=== PATIENT | female | born 1970 | race Caucasian/White ===

== ENCOUNTER 2017-04-10 10:04 | Day surgery (SDC) | payer OTHER ==
[2017-04-03 11:38] VITALS: Ht 165.1 cm; Wt 117.6 kg
--- NOTE | 2017-04-03 12:09 | PAT Medication Instructions ---
Service Date Apr 03, 2017. Current Home Medication List Albuterol (Proair Hfa), 8.5 GM INH Q4HR PRN Azelastine HCl (Azelastine HCl), 2 SPRAYS JAGDEEP PN Fluticasone Prop/Salmeterol (Advair Diskus 100/50 60 Dose), 1 PUFF INH BID Fluticasone Propionate (Nasal) (Flonase Allergy Relief), 2 SPRAYS JAGDEEP HS Hyoscyamine Sulfate (Levsin), 0.125 MG PO Q6HR PRN Levothyroxine (Synthroid *), 0.1 MG PO QAM Lisinopril (Prinivil), 10 MG PO QAM Naproxen (Aleve), 440 MG PO PRN [Kenzie], 1 TAB PO QAM [Ativan], 1 TAB PO TID PRN for RN [Omeprazole], 1 TAB PO BID [Ranitidine], 1 TAB PO HS PRN for RN [Singulair], 1 TAB PO HS [Wellbutrin], 1 TAB PO BID Medication Instructions For Your Scheduled Surgery - Check with surgeon for instructions: Naproxen (Aleve), 440 MG PO PRN - Hold the following medications the morning of surgery: [Ranitidine], 1 TAB PO HS PRN for RN [Kenzie], 1 TAB PO QAM Lisinopril (Prinivil), 10 MG PO QAM Hyoscyamine Sulfate (Levsin), 0.125 MG PO Q6HR PRN - Take the following medications the morning of surgery with a sip of water: [Wellbutrin], 1 TAB PO BID [Omeprazole], 1 TAB PO BID [Ativan], 1 TAB PO TID PRN for RN (if needed) Levothyroxine (Synthroid *), 0.1 MG PO QAM Fluticasone Prop/Salmeterol (Advair Diskus 100/50 60 Dose), 1 PUFF INH BID Azelastine HCl (Azelastine HCl), 2 SPRAYS JAGDEEP PN (if needed) Albuterol (Proair Hfa), 8.5 GM INH Q4HR PRN (bring with you to hospital morning of surgery; use if needed) - Take the following medications as scheduled the night before surgery: [Wellbutrin], 1 TAB PO BID [Singulair], 1 TAB PO HS [Ranitidine], 1 TAB PO HS PRN for RN (if needed) [Omeprazole], 1 TAB PO BID [Ativan], 1 TAB PO TID PRN for RN (if needed) Hyoscyamine Sulfate (Levsin), 0.125 MG PO Q6HR PRN (if needed) Fluticasone Propionate (Nasal) (Flonase Allergy Relief), 2 SPRAYS JAGDEEP HS Fluticasone Prop/Salmeterol (Advair Diskus 100/50 60 Dose), 1 PUFF INH BID Azelastine HCl (Azelastine HCl), 2 SPRAYS JAGDEEP PN (if needed) Albuterol (Proair Hfa), 8.5 GM INH Q4HR PRN (if needed) If you have any questions please call us at [phone] or [phone] or [phone]
--- NOTE | 2017-04-03 12:42 | DIAGNOSTIC IMAGING REPORT ---
CHEST 2 VIEWS ROUTINE CLINICAL HISTORY: PAT preoperative evaluation COMPARISON STUDY: No previous studies for comparison. FINDINGS: The bones soft tissues and hemidiaphragms are normal. The cardiomediastinal silhouette is normal. The lungs are clear. The pulmonary vasculature is normal. IMPRESSION: Negative chest. Electronically signed by: Wyatt Mcmillan M.D. 04/03/2017 12:41 PM Dictated Date/Time: 04/03/2017 12:40 PM
[2017-04-03 13:28] LABS: BASO % 0.2 %; BASO ABS # 0.01 K/uL (0-0.2); COMPLETE YES; EOS % 1.3 %; HEMATOCRIT 40.2 % (37-47); IG% 0.2 %; LYMPH % 30.6 %; LYMPH ABS # 1.83 K/uL (1.2-3.4); MEAN CELL VOLUME 85.2 fL (80-100); MEAN CORPUSCULAR HGB CONC 32.8 g/dl (32-36); MEAN PLATELET VOLUME 9.2 fL (7.4-10.4); MONO % 8.4 %; NEUT % 59.3 %; PLATELET COUNT 278 K/uL (130-400); RED BLOOD COUNT 4.72 M/uL (4.2-5.4); URINE APPEARANCE CLEAR (CLEAR); URINE BILIRUBIN NEG (NEG); URINE COLOR YELLOW; URINE NITRITE NEG (NEG); URINE PH 6.5 (4.5-7.5); URINE SPECIFIC GRAVITY 1.023 (1.000-1.030); UROBILINOGEN NEG (NEG); WHITE BLOOD COUNT 5.98 K/uL (4.8-10.8)
[2017-04-03 13:32] LABS: BUN/CREATININE RATIO 13.7 (10-20); CREATININE 0.87 mg/dl (0.60-1.20); MANUAL MICROSCOPIC REQUIRED? NO; POTASSIUM 4.3 mmol/L (3.5-5.1); REVIEW REQ? NO
[2017-04-03 13:36] LABS: PROTHROMBIN TIME (PATIENT) 10.4 SECONDS (9.0-12.0)
--- NOTE | 2017-04-09 17:13 | HISTORY & PHYSICAL EXAMINATION ---
DATE OF ADMISSION: 04/11/2017 `. CHIEF COMPLAINT: Back and right leg pain. HISTORY OF PRESENT ILLNESS: The patient a 46-year-old female who underwent a prior right L5-S1 microdiskectomy and did well. She reports a few months to shoot up recurrent symptoms of pain radiates down the right leg. She is currently not working but the pain is frequent, intermittent, exacerbated by activity and limiting her function. She has failed to improve with conservative treatment including physical therapy and epidural injections and desires surgical intervention. She denies alphonso numbness or weakness. She has an MRI that shows a right L4-L5 disk herniation with extruded fragment causing lateral recess narrowing. Prior laminectomy on the right at L5-S1 with loss of disk height at L4-L5 and L5-S1. There is no neural compression to L5-S1. PAST MEDICAL HISTORY: Reflux, arthritis, asthma, chronic migraines, high cholesterol, hypertension, hypothyroidism, obesity. PAST SURGICAL HISTORY: Microdiskectomy and bilateral tubal ligation. MEDICATIONS: Synthroid, lisinopril, Prilosec, Kenzie, Lortab, Advair, Wellbutrin, Flonase. ALLERGIES: None. FAMILY HISTORY: Denies history of stroke. There is a family history of arthritis, coronary artery disease and diabetes. SOCIAL HISTORY: The patient is , currently not working, has 1 son. She does not smoke and drinks an occasional glass of wine. REVIEW OF SYSTEMS: Negative for fever, hearing loss, vision changes, shortness of breath, chest pain, leg swelling, nausea, vomiting, urinary incontinence. PHYSICAL EXAMINATION: GENERAL: The patient stands 5 feet 5 inches tall, weighs 250 pounds. She stands and ambulates with a deliberate gait. She has normal last affect and answers questions appropriately. NECK: She has full cervical range of motion with normal-appearing neck. No lymphadenopathy and good range of motion. HEART: She has a regular rate and rhythm on auscultation of the heart. LUNGS: Clear to auscultation bilaterally. ABDOMEN: She has modest centripetal obesity. EXTREMITIES: Lower extremity evaluation reveals nontender hip range of motion with a positive straight leg raise on the right, negative on the left. Strength testing demonstrates normal strength in all motor groups in the lower extremities bilaterally. She has intact sensation to light touch in all distributions except for some subjective decreased sensation to light touch in the posterior thigh on the right. She has symmetrically diminished DTRs of patellar and no clonus in the ankles. She has palpable distal pulses. BACK: Lumbar scar was noted. ASSESSMENT AND PLAN: She has right L4-L5 herniated nucleus pulposus, failed to respond to conservative treatment and the patient desires surgical intervention. I think it is reasonable to proceed with a right L4-5 microdiskectomy. Risk of ongoing back pain was reviewed. MTDD
[~2017-04-10] VITALS: Ht 165.1 cm; Wt 117.6 kg
[~2017-04-10 10:04] MED LIST: ADVIN10/60 INH; ALBU1AER9 INH; ALLEGRA PO; ATIVAN PO; AZEL0.056 NAE; FLUT0.15 NAE; HYOS1TAB PO; LISI10TA PO; NAPR1TAB9 PO; OMEPRAZOLE PO; RANITIDINE PO; SINGULAIR PO; SYN100 PO; WELLBUTRIN PO
[2017-04-10] MEDS ORDERED: FENTANYL CITRATE INJ 50 MCG/1 ML 2 ML VIAL ONE ×2 (10:38→12:46)
[2017-04-10] MEDS ORDERED: MIDAZOLAM HCL 1 MG/ML 2ML VIAL ONE (10:38)
[2017-04-10] MEDS ORDERED: HYDROmorphone INJ 2 MG/ML SYR/VIAL ONE (10:39)
[2017-04-10] MEDS ORDERED: ZNTT/150 PO (10:57)
[2017-04-10] MEDS ORDERED: MONT1TAB3 PO (10:57)
[2017-04-10] MEDS ORDERED: LEVO112T4 PO (10:57)
[2017-04-10] MEDS ORDERED: PRLSR20 PO (10:57)
[2017-04-10] MEDS ORDERED: LORA-741 PO (10:57)
[2017-04-10] MEDS ORDERED: BUPR100T8 PO (10:57)
[2017-04-10] MEDS ORDERED: FEXO1TAB49 PO (10:57)
[2017-04-10 11:01] VITALS: BP_SYST 140; BP_SYST 180; BP_DIAS 82; BP_DIAS 96; PULSE 97; TEMP 36; O2SAT 96
[2017-04-10] MEDS ORDERED: CEFAZOLIN IV 2,000 MG/60 ML D5W IV ONE (11:23)
[2017-04-10] MEDS ORDERED: EpHEDrine SULFATE INJ 50 MG/ML AMP IV PRN (11:45)
[2017-04-10] MEDS ORDERED: ONDANSETRON INJ 2 MG/ML 2 ML VIAL IV PRN ×2 (11:45→13:15)
[2017-04-10] MEDS ORDERED: ATROPINE SULFATE 0.1 MG/ML 5ML SYR IV PRN (11:45)
--- NOTE | 2017-04-10 11:48 | History & Physical Bridge Note ---
H&P Re-Evaluation Bridge Note: I have examined the patient, reviewed the History & Physical and in the interval since the performance of the History & Physical I have noted the following changes of clinical significance: No changes noted
[2017-04-10] MEDS ORDERED: BUPIVACAINE/EPINEPHRINE 0.5% MPF 1:200,000 30 ML VIAL ONE (12:07)
[2017-04-10] MEDS ORDERED: BACITRACIN 50000 UNIT VIAL ONE (12:07)
[2017-04-10] MEDS ORDERED: THROMBIN 5000 UNITS KIT ONE (12:07)
[2017-04-10] MEDS ORDERED: PROPOFOL IV EMULSION 10 MG/ML 20 ML VIAL IV ONE (12:51)
[2017-04-10] MEDS ORDERED: ONDANSETRON INJ 2 MG/ML 2 ML VIAL ONE (12:51)
[2017-04-10] MEDS ORDERED: DEXAMETHASONE SOD INJ 4 MG/ML VIAL ONE (12:51)
[2017-04-10] MEDS ORDERED: LIDOCAINE HCL 2% 2 ML VIAL (20MG/ML) ONE (12:51)
[2017-04-10] MEDS ORDERED: ROCURONIUM BROMIDE 10 MG/ML 5 ML VIAL ONE (12:51)
[2017-04-10] MEDS ORDERED: MoRPHine SULFATE 2 MG/ML CARP IV PRN (13:15)
[2017-04-10] MEDS ORDERED: OXYCODONE/ACETAMINOPHEN 5-325 TAB PO PRN ×2 (13:15)
[2017-04-10] MEDS ORDERED: SODIUM CHLORIDE 0.9% 1000ML 1,000 ML IV SCH (13:15)
--- NOTE | 2017-04-10 13:15 | [facility] Post Operative Brief Note ---
Immediate Operative Summary Operative Date Apr 10, 2017. Pre-Operative Diagnosis right L4-5 herniated nucleus pulposus Post-Operative Diagnosis right L4-5 herniated nucleus pulposus Procedure(s) Performed Right L4-L5 Microdiscectomy Surgeon Dr. Emigdio Brian Cook Specialty Surgeon(s) Gary Dimas PA-C Estimated Blood Loss 20ml Findings dict Specimens no specimens per surgeon Dr. Emigdio Brain
[2017-04-10] MEDS ORDERED: FLOSEAL HEMOSTATIC MATRIX 5ML TOP ONE (13:16)
[2017-04-10] MEDS ORDERED: OXYC-57 PO (13:16)
--- NOTE | 2017-04-10 13:18 | Discharge Instructions ---
Discharge Instructions Date of Service Apr 10, 2017. Admission Reason for Admission: Herniated Nucleus Pulposus Discharge Discharge Diagnosis / Problem: same Discharge Goals Goal(s): Decrease discomfort Activity Recommendations Activity Limitations: per Instructions/Follow-up section Lifting Limitations: no more than 10 pounds Exercise/Sports Limitations: gradually increase as tolerated May Resume Sexual Activity: when tolerated Shower/Bathe: may shower/bathe in 3 days . Instructions / Follow-Up Instructions / Follow-Up ACTIVITY RECOMMENDATIONS: SELF CARE INSTRUCTIONS AFTER A LAMINECTOMY 1. No prolonged sitting (less than 30 minutes for the first 3 weeks after surgery). 2. No bending, lifting more than 5 pounds, or twisting (roll like a log when turning in bed). 3. You may shower 3 days after surgery if no drainage from wound. Thoroughly dry wound. Do not soak in the tub. 4. Please walk as much as you can for exercise. Gradually increase the distance that you walk as your endurance increases. 5. You may drive in 7-10 days if you are comfortable and no longer requiring pain medications. SPECIAL CARE INSTRUCTIONS: VERY IMPORTANT TO READ AND REVIEW A. Your surgical incision has been closed with a cosmetic suture under the skin that will dissolve in about 6 weeks. In 14 days, you can use a pair of clean scissors and cut the suture that is left outside of the skin at the ends of your incision. B. Complications are uncommon, but please contact us if you have any signs or symptoms of: 1. wound infection (fever higher than 102.5 degrees F, redness, separation of wound, drainage, or increasing pain from the incision) 2. blood clots in legs (pain, swelling, redness and warmth in legs) 3. urinary tract infection (fever higher than 102.5 degrees, burning upon urination or increased frequency of urination) 4. nerve problems (inability to walk on your toes or heels, numbness, loss of bowel or bladder control) 5. any other symptoms that concern you. C. Please call the office at if you have any concerns or questions about your operation or recovery. MANAGING PAIN AFTER SPINAL SURGERY 1. Narcotic medication is intended for short-term use and will be provided for surgical pain. Surgical pain usually lasts for a period of 4-6 weeks. Narcotic medication includes Percocet, Vicodin, Darvocet, Tylenol #3 or Lortab. 2. Longer-term pain is more appropriately treated with non-narcotic medication such as Tylenol ES. 3. Muscle spasm is not appropriately treated with narcotics. Muscle relaxers such as Soma, Flexeril or Skelaxin can be used along with Tylenol ES. 4. Remember that we all live with some "aches and pains". This is not unusual or uncommon after an injury or as we get older. 5. We will provide appropriate medication within the normal guidelines of their prescribed use. We will also be very cautious and aware of potential abuse and extended duration of patients' medication needs. 6. Please allow 2-3 days to process refills. Prescriptions will not be mailed but must be picked up at the office. FOLLOW UP VISIT: Keep your scheduled follow-up appointment. Any questions, please call the office at . Current Hospital Diet Patient's current hospital diet: Discharge Diet Recommended Diet: Regular Diet Procedures Procedures Performed: Right L4-L5 Microdiscectomy Pending Studies Studies pending at discharge: no Medical Emergencies . Who to Call and When: Medical Emergencies: If at any time you feel your situation is an emergency, please call 911 immediately. . Non-Emergent Contact Non-Emergency issues call your: Surgeon . "Provider Documentation" section prepared by Emigdio Brian. . VTE Core Measure Inpt VTE Proph given/why not?: SCD's [place] Drug Monitoring Program Search Results: patient reviewed within database, no issues identified
[2017-04-10] MEDS: FENTANYL CITRATE INJ 50 MCG/1 ML 2 ML VIAL IV PRN ×4 (13:40→13:55)
--- NOTE | 2017-04-10 13:54 | DIAGNOSTIC IMAGING REPORT ---
INTRAOPERATIVE LUMBAR SPINE SINGLE VIEW CLINICAL HISTORY: Right L4-L5 microdiscectomy COMPARISON STUDY: No previous studies for comparison. FINDINGS: 8 seconds of fluoroscopic time was utilized. A single fluoroscopic spot images provided for interpretation. This reveals a metallic probe projected just posterior to the inferior L4 endplate. IMPRESSION: Intraoperative radiograph for localization purposes demonstrating a metallic probe at the L4-5 level. Electronically signed by: Augustin Patricia M.D. 04/10/2017 1:52 PM Dictated Date/Time: 04/10/2017 1:51 PM
--- NOTE | 2017-04-10 14:18 | OPERATIVE REPORT ---
DATE OF OPERATION: 04/10/2017 PREOPERATIVE DIAGNOSES: 1. Previous right L5-S1 microdiscectomy. 2. Right L4-L5 herniated nucleus pulposus. POSTOPERATIVE DIAGNOSES: Same. PROCEDURES: Right L4-L5 microdiscectomy. SURGEON: Dr. Brian. TOOL AND DIE ENGINEER: Gary Dimas PA-C. Please note he participated in all portions of the procedure and was critical for performance of the procedure. ANESTHESIA: General endotracheal anesthesia. COMPLICATIONS: None. ESTIMATED BLOOD LOSS: Minimal. DESCRIPTION OF PROCEDURE: After identification of patient and operative level, she was brought to the OR where she underwent induction of general anesthesia. She was then positioned prone on Corey OR table. All bony prominences were well padded. Care was taken to avoid pressure on the periorbital area. Lumbosacral area was sterilely prepped and draped in usual fashion. Antibiotics were administered. Time-out was performed. Level was confirmed and skin incision was localized with spinal needle. I infiltrated the skin with Marcaine and placed the incision over the spinous process of L4 and L5, exposed the right L4-L5 interlaminar window. After mobilization of fascia, identified the operative level with fluoroscopy and a marker and then marked this level. belt loop machine operator retractor was placed and a small laminotomy was created under the right edge of L4. I removed ligamentum flavum ____ traversing nerve root, protected with a nerve root retractor and then identified the extruded disc fragment in the superior disc space. I removed the capsule around the disc fragment, removed loose disc fragments and swept and explored the disc space, confirmed no further fragments were present. I then reconfirmed level, confirmed the nerve was decompressed and irrigated with bacitracin solution, applied FloSeal and closed in layered fashion. All sponge and needle counts were correct at the end of the case. I attest to the content of the Intraoperative Record and any orders documented therein. Any exception s are noted below.
[2017-04-10 14:20] VITALS: BP 160/77; PULSE 79; TEMP 36.9; O2SAT 96
[2017-04-10 14:50] VITALS: BP 162/77; PULSE 80; O2SAT 94
--- NOTE | 2017-04-10 15:08 | Anesthesiology Progress Note ---
Anesthesia Post Op Note Date & Time Apr 10, 2017 at 15:09 Vital Signs Vital Signs Past 12 Hours Date Time Temp Pulse Resp B/P (MAP) Pulse Ox O2 Delivery O2 Flow Rate FiO2 04/10/17 14:20 36.9 79 20 160/77 96 Nasal Cannula 2 04/10/17 14:05 79 14 163/94 94 Room Air 04/10/17 13:55 90 88 178/90 97 Mask 5 04/10/17 13:45 88 88 155/89 99 Mask 10 04/10/17 13:35 37.2 108 20 180/89 97 Mask 10 04/10/17 11:01 36 97 18 180/96 (124) 96 Room Air 140/82 (101) Notes Mental Status: alert / awake / arousable, participated in evaluation Pt Amnestic to Procedure: Yes Nausea / Vomiting: adequately controlled Pain: adequately controlled Airway Patency, RR, SpO2: stable & adequate BP & HR: stable & adequate Hydration State: stable & adequate Anesthetic Complications: no major complications apparent
[2017-04-10 15:20] VITALS: BP 158/79; PULSE 88; O2SAT 94
[2017-04-10 15:45] VITALS: BP 156/83; PULSE 78; TEMP 37.1; O2SAT 94
[2017-04-10 16:55] VITALS: BP 166/83; PULSE 80; TEMP 37.1; O2SAT 92
[2017-04-11] MEDS ORDERED: LACTATED RINGER'S 1000ML 1,000 ML IV SCH (06:00)
[2017-04-11] MEDS ORDERED: CEFAZOLIN 2000 MG/60 ML D5W IV SCH (06:00)
== END 2017-04-10 17:15 | disposition home or self-care (01) ==
LOC: C.ACU 10:04
PROVIDERS: ATTEND Orthopaedic Surgery Orthopaedic Surgery of the Spine
DX: M51.26 Other intervertebral disc displacement, lumbar region (principal); J45.909 Unspecified asthma, uncomplicated; I10 Essential (primary) hypertension; E78.00 Pure hypercholesterolemia, unspecified; E03.9 Hypothyroidism, unspecified; E66.9 Obesity, unspecified; Z98.890 Other specified postprocedural states; Z98.51 Tubal ligation status; Z79.899 Other long term (current) drug therapy; Z82.49 Family history of ischemic heart disease and other diseases of the circulatory system; Z83.3 Family history of diabetes mellitus

== ENCOUNTER 2024-06-09 02:44 | Inpatient (IN) ==
--- NOTE | 2024-06-09 03:01 | Emergency Department Note ---
History of Present Illness General Chief complaint: Fall Stated complaint: FALL-LAC TO FOREHEAD Time Seen by Provider: 06/09/24 02:50 History of Present Illness Maximum Pain Intensity: 3 This 53-year-old female that recently started Ozempic presents the ER for nausea diarrhea abdominal cramping he woke up to go the bathroom and passed out on the toilet and struck her head. Patient states the past few days she has had abdominal cramping and diarrhea. She did vomit. Tetanus is reported as current. Patient denies chest pain, dyspnea, fever, chills, flulike illness. No well water. No recent antibiotics. Home Medications Medication Instructions Recorded Confirmed Type Albuterol (Proair Hfa) 8.5 g inhalation Q4HR PRN ##0 12/11/10 History Hyoscyamine Sulfate (Levsin) 0.125 mg PO Q6HR PRN ##0 12/11/10 History Lisinopril (Prinivil) 10 mg PO QAM ##0 12/11/10 History Azelastine HCl 2 spry JAGDEEP PN ##0 04/03/17 History FLUTICASONE PROP/SALMETEROL 1 puff inhalation BID #0 Inhalers 04/03/17 History (Advair Diskus 100/50 60 Dose) Fluticasone Propionate (Nasal) 2 spry JAGDEEP HS ##0 04/03/17 History (Flonase Allergy Relief) Naproxen (Aleve) 440 mg PO PRN #0 tabs 04/03/17 History Bupropion (Wellbutrin Sr) 1 tab PO BID 30 days #60 tabs 04/10/17 History FEXOFENADINE HCL (LADY ALLERGY) 1 tab PO DAILY 30 days #30 tabs 04/10/17 History LEVOTHYROXINE SODIUM 1 tab PO DAILY 30 days #30 tabs 04/10/17 History LORAZEPAM (ATIVAN) 0.5 mg PO TID PRN Anxiety #0 tabs 04/10/17 History MONTELUKAST SODIUM (SINGULAIR) 1 tab PO HS 90 days #0 tabs 04/10/17 History OMEPRAZOLE (PRILOSEC) 20 mg PO BID #0 caps 04/10/17 History Ranitidine (Zantac) 150 mg PO HS #0 tabs 06/14/17 History Allergies Allergy/AdvReac Type Severity Reaction Status Date / Time sumatriptan Allergy Unknown HIVES Verified 04/10/17 10:44 nickel AdvReac Intermediate RASH Verified 04/10/17 10:44 tramadol AdvReac Mild "GETS MEAN" Verified 04/10/17 10:44 Aromatic Oils Allergy Unknown LOTIONS Uncoded 04/10/17 10:44 WITH FRAGRANCE-RASH Past Med/Surg History Problem List (Updated 06/09/24 @ 04:30 by Katina Narvaez PA-C) Abdominal pain, acute (Acute) Abnormal ECG (Acute) Head injury (Acute) Acute UTI (Acute) Syncope (Acute) Social History Smoking Status: Never smoker Preferred Language: [place] Feels Safe at Home: Yes Review of Systems A total of 10 systems reviewed and were otherwise negative Physical Exam Vital Signs Vital Signs - 24 hr 06/09/24 02:47 06/09/24 03:04 06/09/24 03:08 Temperature 36.9 C Temperature Source Temporal Artery Scan Pulse Rate 104 H 98 H Pulse Rate [Left Radial] Pulse Rate from SpO2 Sensor Pulse Rhythm [Left Radial] Pulse Strength [Left Radial] Respiratory Rate 16 Respiratory Effort / Characteristics Non-Labored Spontaneous Respiratory Depth Normal Respiratory Pattern Regular Blood Pressure 155/89 H Blood Pressure [Right Arm] Blood Pressure Mean 111 Blood Pressure Mean [Right Arm] Pulse Oximetry 95 93 Oxygen Delivery Method Room Air Room Air Sepsis Recent Fever Within 48 Hours No Sepsis New/Unexplained Change in Mental Status No Sepsis Action Taken by Nursing No Action Required 06/09/24 03:25 06/09/24 03:30 06/09/24 03:51 Temperature Temperature Source Pulse Rate 93 H 88 Pulse Rate [Left Radial] 87 Pulse Rate from SpO2 Sensor 92 H 88 Pulse Rhythm [Left Radial] Regular Pulse Strength [Left Radial] Normal Respiratory Rate 16 20 20 Respiratory Effort / Characteristics Non-Labored Respiratory Depth Normal Respiratory Pattern Regular Blood Pressure 154/85 H Blood Pressure [Right Arm] 154/85 H Blood Pressure Mean 115 Blood Pressure Mean [Right Arm] 108 Pulse Oximetry 94 93 95 Oxygen Delivery Method Room Air Room Air Sepsis Recent Fever Within 48 Hours Sepsis New/Unexplained Change in Mental Status Sepsis Action Taken by Nursing 06/09/24 04:05 06/09/24 04:05 06/09/24 04:05 Temperature Temperature Source Pulse Rate Pulse Rate [Left Radial] Pulse Rate from SpO2 Sensor Pulse Rhythm [Left Radial] Pulse Strength [Left Radial] Respiratory Rate Respiratory Effort / Characteristics Respiratory Depth Respiratory Pattern Blood Pressure 136/75 136/75 136/75 Blood Pressure [Right Arm] Blood Pressure Mean 92 92 92 Blood Pressure Mean [Right Arm] Pulse Oximetry Oxygen Delivery Method Sepsis Recent Fever Within 48 Hours Sepsis New/Unexplained Change in Mental Status Sepsis Action Taken by Nursing 06/09/24 04:09 06/09/24 04:30 06/09/24 05:00 Temperature Temperature Source Pulse Rate 83 87 78 Pulse Rate [Left Radial] Pulse Rate from SpO2 Sensor 84 89 78 Pulse Rhythm [Left Radial] Pulse Strength [Left Radial] Respiratory Rate 18 16 20 Respiratory Effort / Characteristics Respiratory Depth Respiratory Pattern Blood Pressure 139/80 160/85 H Blood Pressure [Right Arm] Blood Pressure Mean 97 109 Blood Pressure Mean [Right Arm] Pulse Oximetry 94 95 97 Oxygen Delivery Method Room Air Sepsis Recent Fever Within 48 Hours Sepsis New/Unexplained Change in Mental Status Sepsis Action Taken by Nursing VITALS: Vitals are noted on the nurse's note and reviewed by myself. Vital signs stable. GENERAL: Pleasant female with present, in no acute distress, nondiaphoretic, well-developed well-nourished. SKIN: Superficial abrasion to the left forehead, capillary reflex less than 2 seconds. HEENT: Normocephalic. PERRLA. EOMI. Nares patent. Mucous membranes moist. Neck is supple without nuchal rigidity. Face nontender to palpation. Patient can fully open close jaw without difficulties. HEART: Regular rate and rhythm LUNGS: Clear to auscultation bilaterally without wheezes, rales or rhonchi. No retractions or accessory muscle use. ABDOMEN: Positive bowel sounds x 4. Normal tympanic percussion. Soft, tender to palpation lower abdomen, without masses or organomegaly. Elliott sign negative. No guarding or rebound tenderness. no CVA tenderness MUSCULOSKELETAL: No gross musculoskeletal defects. NEURO: Patient was alert and oriented to person place and time. No focal neurological deficits. Course Administered Medications Discontinued Medications Dicyclomine HCl (Dicyclomine Hcl 10 Mg/Ml 2 Ml Amp/Vial) 20 mg IM NOW ONE Stop: 06/09/24 02:58 Last Admin: 06/09/24 03:35 Dose: 20 mg Documented By: MIKE Sodium Chloride (Nss) 1,000 mls @ 999 mls/hr IV .Q1H1M TERRI Stop: 06/09/24 04:00 Last Admin: 06/09/24 03:10 Dose: 999 mls/hr Documented By: MIKE Acetaminophen (Ofirmev) 1,000 mg in 100 mls @ 400 mls/hr IV NOW STA Stop: 06/09/24 03:11 Last Infusion: 06/09/24 04:07 Dose: Infused Documented By: Admin: 06/09/24 03:34 Dose: 400 mls/hr Documented By: MIKE Ceftriaxone Sodium (Rocephin) 2,000 mg in 50 mls @ 100 mls/hr IV NOW STA Stop: 06/09/24 04:47 Last Infusion: 06/09/24 05:04 Dose: Infused Documented By: Admin: 06/09/24 04:38 Dose: 100 mls/hr Documented By: MIKE Ioversol (Optiray 320 100ml) 100 ml IV ONCE ONE Stop: 06/09/24 03:22 Last Admin: 06/09/24 03:21 Dose: 93 ml Documented By: RENUKA Ondansetron HCl (Ondansetron Inj 2 Mg/Ml 2 Ml Vial) 4 mg IV NOW STA Stop: 06/09/24 03:02 Last Admin: 06/09/24 03:36 Dose: 4 mg Documented By: MIKE Medical Decision Making Medical Records Attestation: I reviewed the patient's medical records. Home Medications Current Medication List: was personally reviewed by me Laboratory Data Attestation: I reviewed the patient's lab results. 06/09/24 03:05 06/09/24 03:05 Lab Results 06/09/24 06/09/24 Range/Units 03:05 03:12 WBC 11.30 H (4.8-10.8) K/ul RBC 5.86 H (4.20-5.40) M/uL Hgb 15.5 (12.0-16.0) g/dl POC Hgb 17.0 H (12.0-16.0) g/dl Hct 48.6 H (37.0-47.0) % POC Hct 50 H (37-47) % MCV 82.9 (80.0-100.0) fL MCH 26.5 (25.0-34.0) pg MCHC 31.9 L (32.0-36.0) g/dL RDW Std Deviation 40.4 (36.4-46.3) fL RDW Coeff of Kole 13.4 (11.5-14.5) % Plt Count 310 (130-400) K/uL MPV 9.5 (9.4-12.4) fL Immature Gran % (Auto) 0.4 % Neut % (Auto) 77.5 % Lymph % (Auto) 14.8 % [place] % (Auto) 5.8 % Eos % (Auto) 1.4 % Baso % (Auto) 0.1 % Neut # (Auto) 8.77 H (1.40-6.50) K/uL Lymph # (Auto) 1.67 (1.20-3.40) K/uL [place] # (Auto) 0.65 H (0.11-0.59) K/uL Eos # (Auto) 0.16 (0.00-0.50) K/uL Baso # (Auto) 0.01 (0.00-0.20) K/uL Immature Gran # (Auto) 0.04 (0.01-0.20) K/uL POC Sodium 138 (135-144) mmol/L Sodium 136 (136-145) mmol/L POC Potassium 3.6 (3.3-5.0) mmol/L Potassium 3.7 (3.5-5.1) mmol/L POC Chloride 104 (101-112) mmol/L Chloride 102 (98-107) mmol/L Carbon Dioxide 23 (21-32) mmol/L POC Total CO2 22 L (24-31) mmol/L Anion Gap 11 (3-11) POC Anion Gap 17.0 (16-25) mmol/L POC BUN 18 (7-18) mg/dl BUN 19 (6-23) mg/dl Creatinine 1.04 (0.6-1.2) mg/dl POC Creatinine 1.1 (0.6-1.3) mg/dl Est Cr Clr Drug Dosing 82.4 ml/min Est GFR ( Amer) 71.0 ml/min Est GFR (Non-Af Amer) 61.3 ml/min BUN/Creatinine Ratio 18.3 (10-20) Glucose 119 H (70-99(Fasting)) mg/dl POC Glucose (other) 121 H (70-99) mg/dl Calcium 9.8 (8.6-10.3) mg/dl POC Ioniz Calcium Edward 1.23 (1.12-1.32) mmol/l Magnesium 1.8 (1.7-2.4) mg/dl Total Bilirubin 0.6 (0.2-1.0) mg/dl AST 22 (13-39) U/L ALT 22 (7-52) U/L Alkaline Phosphatase 81 (34-104) U/L Troponin I High Sens 5.8 (0-14) pg/ml Total Protein 8.2 (6.0-8.3) gm/dl Albumin 4.7 (3.4-5.0) gm/dl Globulin 3.5 (2.5-4.0) gm/dl Albumin/Globulin Ratio 1.3 (0.9-2) Lipase 36 (11-82) U/L Urine Color Dark Yellow Urine Appearance Turbid A (Clear) Urine pH 5.5 (4.5-7.5) Ur Specific Mchenry 1.031 H (1.000-1.030) Urine Protein 3+ H (Negative) Urine Glucose (UA) Negative (Negative) Urine Ketones 1+ H (Negative) Urine Blood Negative (Negative) Urine Nitrite Negative (Negative) Urine Bilirubin 2+ H (Negative) Urine Urobilinogen Negative (Negative) Ur Leukocyte Esterase Trace H (Negative) Urine WBC (Auto) 21-50 H (0-5) /hpf Urine RBC (Auto) 0-2 (0-2) /hpf U Hyaline Cast (Auto) >20 H (0-2) /lpf U Epithel Cells (Auto) >20 H (0-2) /hpf Urine Bacteria (Auto) 2+ H (None Seen) Calcium Oxalate Crystal Present A (None Prsent) Urine Mucus Present A (None Prsent) Imaging Data Attestation: I personally reviewed and interpreted this imaging study as follows: Radiologist's Impression: Abdomen/Pelvis CT 06/09/24 02:56 Exam(s): CT ABDOMEN + PELVIS With Contrast IV Amt: 93 ml optiray 320 EXAM: CT Abdomen and Pelvis With Intravenous Contrast CLINICAL HISTORY: lower abd pain. TECHNIQUE: Axial computed tomography images of the abdomen and pelvis with intravenous contrast. CTDI is 28.14 mGy and DLP is 1513.9 mGy-cm. Automated exposure control was utilized for the study. A dose lowering technique was utilized adhering to the principles of ALARA. CONTRAST: Patient received 93 ml optiray 320 of IV contrast 93 mL Optiray 320 COMPARISON: No relevant prior studies available. FINDINGS: Lung bases: Unremarkable. No mass. No consolidation. ABDOMEN: Liver: Unremarkable. No mass. Gallbladder and bile ducts: Unremarkable. No calcified stones. No ductal dilation. Pancreas: Unremarkable. No mass. No ductal dilation. Spleen: Unremarkable. No splenomegaly. Adrenals: Unremarkable. No mass. Kidneys and ureters: Unremarkable. No solid mass. No hydronephrosis. Stomach and bowel: No definite evidence for focal high-grade bowel obstruction. Mild mucosal prominence of the colon with slightly prominent fluid throughout the colon is noted. Moderate distention of the stomach with retained oral contents and fluid. No gastric ulcer thickening. PELVIS: Appendix: A normal caliber appendix is noted extending posteriorly and superiorly from the cecum in the right lower quadrant. Bladder: Unremarkable. No mass. Reproductive: Status post hysterectomy. ABDOMEN and PELVIS: Intraperitoneal space: Unremarkable. No free air. No significant fluid collection. Bones/joints: No acute fracture. No dislocation. Soft tissues: Unremarkable. Vasculature: Unremarkable. No abdominal aortic aneurysm. Lymph nodes: Unremarkable. No enlarged lymph nodes. IMPRESSION: No definite evidence for focal high-grade bowel obstruction. Mild mucosal prominence of the colon with slightly prominent fluid throughout the colon is noted. Subtle colitis with a component of diarrheal disease is suspected. No free intraperitoneal fluid or pneumoperitoneum. Electronically signed by: Keron Mayen MD 06/09/24 04:[address] 06/09/24 02:56 Exam(s): CT HEAD Without Contrast EXAM: CT Head Without Intravenous Contrast CLINICAL HISTORY: Reason for exam: syncope. TECHNIQUE: Axial computed tomography images of the head/brain without intravenous contrast. Automated exposure control was utilized for the study. A dose lowering technique was utilized adhering to the principles of ALARA. COMPARISON: No relevant prior studies available. FINDINGS: No acute intracranial hemorrhage. No midline shift or mass effect. The territorial mckinnon-white matter differentiation is maintained throughout. The ventricles and sulci are commensurate with age. The visualized orbits appear grossly unremarkable. The calvarium is intact. The visualized paranasal sinuses and mastoid air cells are grossly clear. IMPRESSION: No acute intracranial hemorrhage, midline shift, or mass effect. Electronically signed by: Rui Caicedo MD 06/09/24 04:14 AM MDM Narrative Prior records/ancillary studies reviewed. Triage Nursing notes reviewed. Additional history obtained from family. The patient's history was concerning for syncope and abdominal pain with cramping and diarrhea. Differential diagnosis: Etiologies such as side effect to Ozempic, neurologic, intra-abdominal, vasovagal event, infection, hypoglycemia, electrolyte abnormalities, cardiac sources, intracerebral event, toxicologic, neurologic, as well as others were entertained. Physical examination: As above ER treatment provided: IV hydration with normal saline Zofran, Tylenol, Bentyl were ordered Tetanus was reported as current, wound care by nursing Rocephin was ordered for UTI. No prior culture for review On reassessment the patient felt better. An order was placed for continuous cardiac monitoring. The monitor shows a rate of 60-100 with a sinus rhythm per my interpretation. Diagnostics interpretation by me: ECG: ordered for syncope ECG: Normal sinus, ST depression in the inferior and lateral leads, rate of 108. Impression sinus tachycardia with ST depression in the inferior and lateral leads independently interpreted by myself. The labs Independently Interpreted by myself revealed urine concerning for infection sent for culture. No prior culture for review Stable H&H Mild leukocytosis Imaging studies: Imaging as above HEART SCORE: Hx: high/mod/low suspicion: 0 ECG: ST depression/nonspecific changes/normal: 1 Age: Greater than 65/45-64/less than 45: 1 Risk factors: (Hypertension, hyperlipidemia, diabetes, coronary disease, tobacco use, cocaine use): 2 Troponin: Greater than 2 times normal limits/1-2 times normal limits/normal: 0 Total: 4 Consultation: A consultation was placed with the hospitalist. The case was discussed and diagnostics were reviewed. The patient was evaluated in the ER for further treatment. This appears to be consistent with abnormal EKG with UTI and syncope. Medicine was consulted and the case was discussed. Patient will be admitted to the medical service for further evaluation and workup. Patient started on antibiotics for her UTI. She was medicated as above. She is agreeable treatment plan of admission. By the evaluation outlined above emergent etiologies such as hypoglycemia, electrolyte abnormalities, intracerebral event, toxicologic, neurologic,as well as others were deemed relatively unlikely. The pt informed about the findings as listed above. All questions were answered and pleased with the treatment. The chart was completed utilizing [employer] Speech voice recognition software. Grammatical errors, random word insertions, pronoun errors, and incomplete sentences are an occassional consequence of this system due to software limitations, ambient noise, and hardware issues. Any formal questions or concerns about the content, text, or information contained within the body of this dictation should be directly addressed to the physician assistant professor of marine biology for clarification. Impression & Plan Syncope, Acute UTI, Head injury, Abnormal ECG, Abdominal pain, acute Discharge Plan Visit Data Chief Complaint: Fall Stated Complaint: FALL-LAC TO FOREHEAD ED Provider: Andres Quintanilla ED Midlevel Provider: Katina Narvaez Discharge Problem: Syncope, Acute UTI, Head injury, Abnormal ECG, Abdominal pain, acute Patient Disposition: Admitted As Inpatient Condition: Good Forms Stand Alone Forms: [facility] [employer] Prescriptions Prescriptions: No Action Albuterol (Proair Hfa) AEROSOL,SOLN 8.5 g Inhalation Q4HR PRN Qty: 0 Patient Comments: 2 PUFFS Q 4HOURS PRN Hyoscyamine Sulfate (Levsin) 0.125 MG tablet 0.125 mg PO Q6HR PRN Qty: 0 Lisinopril (Prinivil) 10 MG tablet 10 mg PO QAM Qty: 0 Azelastine HCl 0.15 % SPR 2 spry JAGDEEP PN Qty: 0 FLUTICASONE PROP/SALMETEROL (Advair Diskus 100/50 60 Dose) 1 EA AEROSOL,POWDR 1 puff Inhalation BID Qty: 0 Fluticasone Propionate (Nasal) (Flonase Allergy Relief) 50 MCG/ACT SPR 2 spry JAGDEEP HS Qty: 0 Naproxen (Aleve) 220 MG tablet 440 mg PO PRN Qty: 0 Bupropion (Wellbutrin Sr) 100 MG EXT REL TAB 1 tab PO BID 30 Days Qty: 60 FEXOFENADINE HCL (LADY ALLERGY) 180 MG tablet 1 tab PO DAILY 30 Days Qty: 30 LEVOTHYROXINE SODIUM 112 MCG tablet 1 tab PO DAILY 30 Days Qty: 30 LORAZEPAM (ATIVAN) 0.5 MG tablet 0.5 mg PO TID PRN (Reason: Anxiety) Qty: 0 MONTELUKAST SODIUM (SINGULAIR) 10 MG tablet 1 tab PO HS 90 Days Qty: 0 OMEPRAZOLE (PRILOSEC) 20 MG CONTR REL CAP 20 mg PO BID Qty: 0 Ranitidine (Zantac) 150 MG tablet 150 mg PO HS Qty: 0 Referrals Referrals: Jennifer Khoury DO [Primary Care Provider] - Discharge Problem: Syncope Qualifiers: Syncope type: vasovagal syncope Qualified Code(s): R55 - Syncope and collapse
[2024-06-09] MEDS: SODIUM CHLORIDE 0.9% 1,000 ML IV SCH ×2 (03:10→10:35)
[2024-06-09] MEDS: OPTIRAY 320 100ml IV ONE (03:21)
[2024-06-09 03:22] LABS: Basophils # (auto) 0.01 K/uL (0.00-0.20); Basophils % (auto) 0.1 %; Eosinophils # (auto) 0.16 K/uL (0.00-0.50); Eosinophils % (auto) 1.4 %; Hematocrit (blood only) 48.6 % (37.0-47.0); Hemoglobin 15.5 g/dl (12.0-16.0); Immature Granulocytes # (auto) 0.04 K/uL (0.01-0.20); Immature Granulocytes % (auto) 0.4 %; Lymphocytes # (auto) 1.67 K/uL (1.20-3.40); Lymphocytes % (auto) 14.8 %; Mean Corpuscular Hemoglobin 26.5 pg (25.0-34.0); Mean Corpuscular Hgb Conc 31.9 g/dL (32.0-36.0); Mean Corpuscular Volume 82.9 fL (80.0-100.0); Mean Platelet Volume 9.5 fL (9.4-12.4); Monocytes # (auto) 0.65 K/uL (0.11-0.59); Monocytes % (auto) 5.8 %; Neutrophils # (auto) 8.77 K/uL (1.40-6.50); Neutrophils % (auto) 77.5 %; Platelet Count 310 K/uL (130-400); RDW Coefficient of Variation 13.4 % (11.5-14.5); RDW Standard Deviation 40.4 fL (36.4-46.3); Red Blood Count 5.86 M/uL (4.20-5.40)
[2024-06-09 03:25] LABS: iSTAT Creatinine 1.1 mg/dl (0.6-1.3); iSTAT Ionized Calcium 1.23 mmol/l (1.12-1.32); iSTAT Potassium 3.6 mmol/L (3.3-5.0)
[2024-06-09] MEDS: ACETAMINOPHEN 1,000 MG/100 ML VIAL IV STA (03:34)
[2024-06-09] MEDS: DICYCLOMINE HCL 10 MG/ML 2 ML AMP/VIAL IM ONE (03:35)
[2024-06-09] MEDS: ONDANSETRON INJ 2 MG/ML 2 ML VIAL IV STA (03:36)
[2024-06-09 03:48] LABS: Appearance Urine Turbid (Clear); Bacteria Urine Automated 2+ (None Seen); Bilirubin Urine 2+ (Negative); Blood Urine Negative (Negative); Cast Urine Automated >20 /lpf (0-2); Color Urine Dark Yellow; Glucose Urine UA Negative (Negative); Ketones Urine 1+ (Negative); Leukocyte Esterase Urine Trace (Negative); Nitrite Urine Negative (Negative); Protein Urine 3+ (Negative); Specific Gravity Urine 1.031 (1.000-1.030); Urobilinogen Urine Negative (Negative); WBC Urine Automated 21-50 /hpf (0-5); pH Urine 5.5 (4.5-7.5)
[2024-06-09 04:01] LABS: Calcium Oxalate Crystals Urine Present (None Prsent)
[2024-06-09 04:02] LABS: Epithelial Cell Urine Auto >20 /hpf (0-2); Mucus Urine Present (None Prsent); RBC Urine Automated 0-2 /hpf (0-2)
--- NOTE | 2024-06-09 04:15 | CT Scan Report ---
Exam(s): CT HEAD Without Contrast EXAM: CT Head Without Intravenous Contrast CLINICAL HISTORY: Reason for exam: syncope. TECHNIQUE: Axial computed tomography images of the head/brain without intravenous contrast. Automated exposure control was utilized for the study. A dose lowering technique was utilized adhering to the principles of ALARA. COMPARISON: No relevant prior studies available. FINDINGS: No acute intracranial hemorrhage. No midline shift or mass effect. The territorial mckinnon-white matter differentiation is maintained throughout. The ventricles and sulci are commensurate with age. The visualized orbits appear grossly unremarkable. The calvarium is intact. The visualized paranasal sinuses and mastoid air cells are grossly clear. IMPRESSION: No acute intracranial hemorrhage, midline shift, or mass effect. Electronically signed by: Rui Caicedo MD 06/09/24 04:14 AM
[2024-06-09 04:28] LABS: Albumin Level 4.7 gm/dl (3.4-5.0); Bilirubin,Total 0.6 mg/dl (0.2-1.0); Calcium 9.8 mg/dl (8.6-10.3); Magnesium 1.8 mg/dl (1.7-2.4); Potassium 3.7 mmol/L (3.5-5.1)
--- NOTE | 2024-06-09 04:32 | CT Scan Report ---
Exam(s): CT ABDOMEN + PELVIS With Contrast IV Amt: 93 ml optiray 320 EXAM: CT Abdomen and Pelvis With Intravenous Contrast CLINICAL HISTORY: lower abd pain. TECHNIQUE: Axial computed tomography images of the abdomen and pelvis with intravenous contrast. CTDI is 28.14 mGy and DLP is 1513.9 mGy-cm. Automated exposure control was utilized for the study. A dose lowering technique was utilized adhering to the principles of ALARA. CONTRAST: Patient received 93 ml optiray 320 of IV contrast 93 mL Optiray 320 COMPARISON: No relevant prior studies available. FINDINGS: Lung bases: Unremarkable. No mass. No consolidation. ABDOMEN: Liver: Unremarkable. No mass. Gallbladder and bile ducts: Unremarkable. No calcified stones. No ductal dilation. Pancreas: Unremarkable. No mass. No ductal dilation. Spleen: Unremarkable. No splenomegaly. Adrenals: Unremarkable. No mass. Kidneys and ureters: Unremarkable. No solid mass. No hydronephrosis. Stomach and bowel: No definite evidence for focal high-grade bowel obstruction. Mild mucosal prominence of the colon with slightly prominent fluid throughout the colon is noted. Moderate distention of the stomach with retained oral contents and fluid. No gastric ulcer thickening. PELVIS: Appendix: A normal caliber appendix is noted extending posteriorly and superiorly from the cecum in the right lower quadrant. Bladder: Unremarkable. No mass. Reproductive: Status post hysterectomy. ABDOMEN and PELVIS: Intraperitoneal space: Unremarkable. No free air. No significant fluid collection. Bones/joints: No acute fracture. No dislocation. Soft tissues: Unremarkable. Vasculature: Unremarkable. No abdominal aortic aneurysm. Lymph nodes: Unremarkable. No enlarged lymph nodes. IMPRESSION: No definite evidence for focal high-grade bowel obstruction. Mild mucosal prominence of the colon with slightly prominent fluid throughout the colon is noted. Subtle colitis with a component of diarrheal disease is suspected. No free intraperitoneal fluid or pneumoperitoneum. Electronically signed by: Keron Mayen MD 06/09/24 04:31 AM
[2024-06-09 04:34] LABS: Albumin Globulin Ratio 1.3 (0.9-2); BUN Creatinine Ratio 18.3 (10-20); Creatinine Clr Calc Pharmacy 82.4 ml/min; Est GFR (Non-African American) 61.3 ml/min; Globulin 3.5 gm/dl (2.5-4.0); Total Protein 8.2 gm/dl (6.0-8.3)
[2024-06-09] MEDS: cefTRIAXone SODIUM 2,000 MG/50 ML BAG IV STA (04:38)
[2024-06-09 04:56] LABS: Troponin I High Sensitivity 5.8 pg/ml (0-14)
--- OUTSIDE RECORDS SUMMARY | 2024-06-09 07:26 | External Medical Summary | Summary of Care ---
Author Name Unknown Organization [facility] Address [address] [place] [address] Phone [phone] Care Team Providers Care Nurse Intern Name Role Phone Cali Bustamante DO Primary Care Provider [phone] Reason for Visit * Reason Comments eRx-Medication Refill Encounter Details Date Type Department Care Team (Late st Contact Info) Description 05/23/2024 Refill [facility] [address] [place] [address] Cali Bustamante DO [address] [place] [address] Allergies Active Allergy Reactions Criticality Noted Date Comments Nickel Rash 08/15/2017 documented as of this encounter (statuses as of 05/25/2024) Medications Medication Sig Dispensed Refills Start Date End Date Status hyoscyamine (LEVSIN) 0.125 MG SL tablet Take 1 Tab by mouth every 4 hours as needed for Cramping. Abdominal pain 40 Tab 2 7 Active Naproxen Sodium 220 MG Oral Tablet Take 2 Tablets by mouth 2 times a day with morning and evening meals. Active ondansetron (ZOFRAN) 8 MG TabletIndication s:Nausea Take 1 Tab by mouth every 8 hours as needed for Nausea. 90 Tab 8 Active Loratadine 10 MG Oral Capsule Take 1 Capsule by mouth in the morning. Active Azelastine HCl (ASTELIN) 0.1 % nasal sprayIndications :Otalgia,Dysfunc tion of eustachian tube,Chronic rhinitis Administer 2 Sprays into each nostril 2 times a day. 3 mL 1 0 Active Fexofenadine HCl 180 MG Oral Tablet Take 1 Tablet by mouth in the morning. 1 Active Cetirizine HCl 10 MG Oral Tablet Chewable Take 1 Tablet by mouth in the morning. Active Fluticasone Propionate 50 MCG/ACT Nasal Suspension (Flonase) USE 2 SPRAYS IN EACH NOSTRIL DAILY 48 g 3 3 Active Additional Information Patient not taking.Reported on 04/13/2024 Nystatin-Triamci nolone 181543-5.1 UNIT/GM-% External Cream (Mycolog)Indicat ions:Cutaneous candidiasis APPLY TOPICALLY TO AFFECTED AREA TWICE A DAY FOR 2 WEEKS 30 g 1 3 Active Fluticasone-Salm eterol 100-50 MCG/ACT Inhalation Aerosol Powder Breath Activated (Advair Diskus)Indicatio ns:Moderate persistent extrinsic asthma without complication Inhale 1 Puff by mouth in the morning and 1 Puff before bedtime. 180 Each 3 3 Active Furosemide 20 MG Oral Tablet (Lasix) TAKE 1 TABLET DAILY 90 Tablet 3 3 Active Lisinopril 10 MG Oral Tablet (Prinivil)Indica tions:HTN, goal below 140/90 TAKE 1 TABLET DAILY 90 Tablet 3 3 Active Levothyroxine Sodium 125 MCG Oral Tablet (Levoxyl) Take 1 Tablet by mouth in the morning. (at least 30 min prior to breakfast or other meds). 90 Tablet 3 3 Active Omeprazole 20 MG Oral Capsule Delayed Release (PriLOSEC)Indica tions:Gastroesop hageal reflux disease TAKE 1 CAPSULE IN THE MORNING AND 1 CAPSULE BEFORE BEDTIME 180 Capsule 3 4 Active Montelukast Sodium 10 MG Oral Tablet (Singulair)Indic ations:Allergic rhinitis TAKE 1 TABLET DAILY 90 Tablet 3 4 Active Albuterol Sulfate HFA 108 (90 Base) MCG/ACT Inhalation Aerosol SolutionIndicati ons:Asthma with severity to be determined USE 2 INHALATIONS FOUR TIMES A DAY 25.5 g 3 4 Active LORazepam 0.5 MG Oral Tablet (Ativan)Indicati ons:Anxiety Take 1 Tablet by mouth 3 times a day as needed for Anxiety. 90 Tablet 4 Active Ozempic (0.25 or 0.5 MG/DOSE) 2 MG/3ML Solution Pen-injector (Semaglutide(0.2 5 or 0.5MG/DOS))Indic ations:Type 2 diabetes mellitus with hemoglobin A1c goal of less than 7.0% (HCC),Type 2 diabetes mellitus with hemoglobin A1c goal of less than or equal to 9.0% (HCC) Inject 0.25 mg once weekly x 4 week then increase to 0.5 mg once weekly thereafter 9 mL 4 Active Venlafaxine HCl ER 75 MG Oral Capsule Extended Release 24 Hour (Effexor XR) TAKE 1 CAPSULE IN THE MORNING (DO NOT CUT, CRUSH OR CHEW) 90 Capsule 3 4 Active Venlafaxine HCl ER 37.5 MG Oral Capsule Extended Release 24 Hour (Effexor XR) Take 1 Capsule by mouth in the morning. 90 Capsule 3 3 05/25/20 24 Discontinued(Med ication/Dose Changed) Venlafaxine HCl ER 75 MG Oral Capsule Extended Release 24 Hour (Effexor XR) TAKE 1 CAPSULE IN THE MORNING (DO NOT CUT, CRUSH OR CHEW) 90 Capsule 4 05/25/20 24 Discontinued documented as of this encounter (statuses as of 05/25/2024) Active Problems Problem Noted Date Diagnosed Date Prediabetes 05/04/2024 Overview: Per Prediabetes protocol Body mass index (BMI) of 45.0 to 49.9 in adult 1 12/12/2022 HTN, goal below 140/90 01/04/2015 Chronic rhinitis 12/03/2014 Allergic rhinitis 05/07/2012 DISC DIS L4-L5 07/11/2010 HX OF ESOPHAGEAL STRICTURE 08/23/2008 Other specified gastritis without mention of hem orrhage 04/05/2008 Overview: mild chronic gastritis Irritable bowel syndrome 01/22/2008 Backache 09/25/2007 ADVANCE DIRECTIVE INFORMATION 07/16/2005 Overview: No, Advance Directive brochure given to patient. Asthma, allergic 01/16/2005 Family history of other cardiovascular diseases 06/24/2001 Overview: ICD-10 update of inactive term Hypothyroidism Allergic rhinitis FAM HX-DIABETES MELLITUS Esophageal reflux Dyslipidemia, goal LDL below 100 documented as of this encounter (statuses as of 05/25/2024) Resolved Problems Problem Noted Date Diagnosed Date Resolved Date Body mass index (BMI) of 45. 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 09/07/2019 Class 3 severe obesity in adult 12/26/2017 09/11/2019 Right shoulder pain 12/03/2014 08/11/20 18 PAIN IN LIMB, LEFT FOOT 05/16/201007/28 Polyneuropathy in other dise ases classified elsewhere 05/16/2010 04/20/2019 BURSITIS L shoulder 04/11/2010 08/11/20 18 BMI 40.0-44.9, adult 01/23/2010 021 Overview: Per Obesity Taxonomy HTN, goal below 130/80 09/14/200901/04 HTN, goal below 140/90 04/09/200809/14 Need for influenza vaccination 09/25/2007 08/11/2018 Dysmenorrhea 09/25/2007 09/29/2019 Acute cystitis 09/25/2007 12/23/2008 Overview: Resolved per Benign Acute Dxs Protocol #3 AC SUPP OTITIS MEDIA, RIGHT 02/08/2006 07/19/2017 DYSFUNCT EUSTACHIAN TUBE 02/08/2006 OBESITY, UNSPECIFIED 11/19/2003 010 Overview: Per Obesity Taxonomy Organic sleep disorder 11/19/200303/13 OLIGOMENORRHEA 06/24/2001 03/13/2004 Dyslipidemia, goal to be determined 10/07/2000 09/18/2013 Esophageal stricture 008 Overview: dilated x 2, last February 2000 documented as of this encounter (statuses as of 05/25/2024) Immunizations Name Administration Dates Next Due COVID-19 mRNA, LNP-s, No Pre serve, 2-Dose Series (Moderna) 02/16/2021,01/12/2021 COVID-19, mRNA, LNR-S, Bival ent, PF, 10mcg/0.2 ml (Moderna) 6m to 5 years 08/24/2022,09/27/2021 PPD 06/12/2017 Pneumococcal Conjugate Vacci ne, 20-valent ([id number]) 10/10/2022 Pneumococcal Polysaccharide PPV23 (Pneumovax) 03/21/2016 Seasonal Influenza, PF, 6 M & above, IM , (FluLaval or Fluzone) 07/09/2022,08/29/2021,08/17/2020,06/29,10/07/2018,07/19/2017 07/19/2018 Seasonal Influenza, Quadriva lent, No Preserve, IM 08/03/2023,08/03/2016,08/11/2015 Seasonal Influenza, Split, I IV3, With Preserve, Inj 08/08/2010,08/23/2008 TDAP (age 10 and older)(Boostrix) 10/10/2022,08/2012 Zoster Vaccine Recombinant (Shingrix) 10/11/2023 ,04/10/2023 documented as of this encounter Social History Tobacco Use Types Packs/Day Years Used Date Smoking Tobacco: Never Passive Smoke Exposure: Never Smokeless Tobacco: Never Alcohol Use Standard Drinks/Week Comments Yes 0 (1 standard drink = 0.6 oz pur e alcohol) on occ PHQ-2 Answer Date Recorded PHQ Adult Total Score 2 03/22/2021 Hunger Vital Sign Answer Date Recorded Within the past 12 months, y ou worried that your food would run out before you got the money to buy more. Never true 03/22/20 21 Within the past 12 months, t he food you bought just didn't last and you didn't have money to get more. Never true 03/22/2021 Utilities Answer Date Recorded Do you have trouble paying y our heating, water, or electric bill? (Adult - for ages 18 years and over) Not on file 04/14/2024 Is your family able to pay t he heat, water, or electric bill? (Household - for ages 0-17 years) Not on file 04/14/2024 Does your family have access to good internet? (Household - for ages 0-17 years) Not on file 04/14/2024 Social Connections Answer Date Recorded How often do you feel lonely or isolated from those around you? (Adult - for ages 18 years and over) Not on file 04/14/2024 Sex and Gender Information Value Date Recorded Sex Assigned at Female 11/10/2019 10:33 AM EST Gender Identity Female 11/10/2019 10:33 AM EST Sexual Orientation Straight 11/10/2019 10 :33 AM EST Job Start Date Occupation Industry Not on file Not on file Not on file documented as of this encounter Miscellaneous Notes * Telephone Encounter - Consuelo Whitten RPh - 05/25/2024 6:26 AM EDTSigned Prescriptions: Disp Refills Venlafaxine HCl ER 75 MG Oral Capsule Exte*90 Cap*3 Sig: TAKE 1 CAPSULE IN THE MORNING (DO NOT CUT, CRUSH OR CHEW)Authorizing Provider: CALI BUSTAMANTE User: CONSUELO WHITTEN documented in this encounter Plan of Treatment Upcoming Encounters Date Type Department Care Team (Late st Contact Info) Description 06/12/2024 2:00 PM EDT Cardiac Studies Cardiac Studies, [place] [facility] [place] [address] 07/09/2024 8:00 AM EDT Office Visit Pharmacy, [place] [address] [place] [address] [place] [facility] [address] [place] [address] 07/29/2024 11:30 AM EDT Office Visit Gynecology/Oncology, [place] [address] [place] [address] Alissa Martinez PA-C [address] [place] [address] 10/26/2024 12:10 PM EST Office Visit Family [facility] [place] [address] [place] [phone] Cali Bustamante DO [address] [place] [address] Scheduled Procedures Name Priority Associated Diagnoses Date/Ti me COLONOSCOPY FLEXIBLE PROXIMAL DIAGNOSTIC Recall Screen for colon cancer Health Maintenance Due Date Last Done Comments HIV Screening 1985 Hepatitis C Screening 1988 Hepatitis B Vaccine (1 of 3 - 19+ 3-dose series) 1989 Cologuard 2015 Colonoscopy 2015 Colorectal Cancer Screening 2015 Fecal Occult Blood Test 2015 Sigmoidoscopy 2015 Depression Screening 03/22/2022 03/22/2021 COVID-19 Vaccine (2022- season) 2023 08/24/2022, 09/27/2021, 02/16/2021, Additional history exists *SPIROMETRY ONCE FOR ASTHMA-ADULT 05/10/2024 Influenza Vaccine (FLU shot) (#1) 2024 08/03/2023, 07/09/2022, 08/29/2021, Additional history exists Mammogram 11/25/2024 11/25/2023, 10/28, 05/08/2022, Additional history exists GFR 04/13/2025 04/13/2024, 09/27, 04/10/2023, Additional history exists HbA1c 04/13/2025 04/13/2024 TSH 04/13/2025 04/13/2024, 09/27, 08/17/2023, Additional history exists Albumin/Creatinine Ratio 01/22/2026 01/22/2023 Lipid Panel 04/13/2029 04/13/2024, 12/27, 10/10/2022, Additional history exists DTaP,Tdap,and Td Vaccines (3 - Td or Tdap) 10/10/2032 10/10/2022, 05/07/2012, 10/07/2000 Pneumococcal Vaccine: Pediatrics (0 to 5 Years) and At-Risk Patients (6 to 64 Years) Completed 10/10/2022, 03/21/2016 Zoster Vaccines Completed 10/11/2023, 04/10/2023 HPV (Gardasil) Vaccine Aged Out No lo nger eligible based on patient's age to complete this topic MENINGOCOCCAL (MENACTRA/MENVEO) Aged Out No longer eligible based on patient's age to complete this topic documented as of this encounter Medical Devices Not on filedocumented as of this encounter Advance Directives * Full Code (Latest Code Status on File) Date Activated Date Inactivated Comments 08/24/2019 11:29 AM 08/24/2019 6:26 PM This orde r reflects the patients wishes and were consensually agreed upon. Care Teams Nurse Intern Relationship Specialty Start Date End Date Cali Bustamante DO [address] [place] [address] PCP - General Family Medicine 05/13/14 documented as of this encounter
--- OUTSIDE RECORDS SUMMARY | 2024-06-09 07:26 | External Medical Summary | Summary of Care ---
Author Name Unknown Organization [facility] Address [address] [place] [address] Phone [phone] Care Team Providers Care Water And Fire Technician Name Role Phone Jennifer Khoury DO Primary Care Provider [phone] Encounter Details Date Type Department Care Team (Late st Contact Info) Description 04/21/2024 Telephone [facility] [address] [place] [address] Jennifer Khoury DO [address] [place] [address] Allergies Active Allergy Reactions Criticality Noted Date Comments Nickel Rash 08/15/2017 documented as of this encounter (statuses as of 04/21/2024) Medications Medication Sig Dispensed Refills Start Date End Date Status hyoscyamine (LEVSIN) 0.125 MG SL tablet Take 1 Tab by mouth every 4 hours as needed for Cramping. Abdominal pain 40 Tab 2 07/19/2017 Active Naproxen Sodium 220 MG Oral Tablet Take 2 Tablets by mouth 2 times a day with morning and evening meals. Active ondansetron (ZOFRAN) 8 MG TabletIndications:N ausea Take 1 Tab by mouth every 8 hours as needed for Nausea. 90 Tab 08/11/2018 Active Loratadine 10 MG Oral Capsule Take 1 Capsule by mouth in the morning. Active Azelastine HCl (ASTELIN) 0.1 % nasal sprayIndications:Ot algia,Dysfunction of eustachian tube,Chronic rhinitis Administer 2 Sprays into each nostril 2 times a day. 3 mL 1 05/06/2020 Active Fexofenadine HCl 180 MG Oral Tablet Take 1 Tablet by mouth in the morning. 03/22/2021 Active Cetirizine HCl 10 MG Oral Tablet Chewable Take 1 Tablet by mouth in the morning. Active Fluticasone Propionate 50 MCG/ACT Nasal Suspension (Flonase) USE 2 SPRAYS IN EACH NOSTRIL DAILY 48 g 3 11/09/2022 Active Additional Information Patient not taking.Reported on 04/13/2024 Nystatin-Triamcinol one 281372-1.1 UNIT/GM-% External Cream (Mycolog)Indication s:Cutaneous candidiasis APPLY TOPICALLY TO AFFECTED AREA TWICE A DAY FOR 2 WEEKS 30 g 1 11/09/2022 Active Venlafaxine HCl ER 37.5 MG Oral Capsule Extended Release 24 Hour (Effexor XR) Take 1 Capsule by mouth in the morning. 90 Capsule 3 01/15/2023 Active Additional Information Patient not taking.Reported on 04/13/2024 Fluticasone-Salmete rol 100-50 MCG/ACT Inhalation Aerosol Powder Breath Activated (Advair Diskus)Indications: Moderate persistent extrinsic asthma without complication Inhale 1 Puff by mouth in the morning and 1 Puff before bedtime. 180 Each 3 02/04/2023 Active Furosemide 20 MG Oral Tablet (Lasix) TAKE 1 TABLET DAILY 90 Tablet 3 06/24/2023 Active Lisinopril 10 MG Oral Tablet (Prinivil)Indicatio ns:HTN, goal below 140/90 TAKE 1 TABLET DAILY 90 Tablet 3 06/24/2023 Active Levothyroxine Sodium 125 MCG Oral Tablet (Levoxyl) Take 1 Tablet by mouth in the morning. (at least 30 min prior to breakfast or other meds). 90 Tablet 3 08/21/2023 Active Omeprazole 20 MG Oral Capsule Delayed Release (PriLOSEC)Indicatio ns:Gastroesophageal reflux disease TAKE 1 CAPSULE IN THE MORNING AND 1 CAPSULE BEFORE BEDTIME 180 Capsule 3 10/30/2023 Active Venlafaxine HCl ER 75 MG Oral Capsule Extended Release 24 Hour (Effexor XR) TAKE 1 CAPSULE IN THE MORNING (DO NOT CUT, CRUSH OR CHEW) 90 Capsule 02/11/2024 Active Montelukast Sodium 10 MG Oral Tablet (Singulair)Indicati ons:Allergic rhinitis TAKE 1 TABLET DAILY 90 Tablet 3 02/11/2024 Active Albuterol Sulfate HFA 108 (90 Base) MCG/ACT Inhalation Aerosol SolutionIndications :Asthma with severity to be determined USE 2 INHALATIONS FOUR TIMES A DAY 25.5 g 3 04/13/2024 Active LORazepam 0.5 MG Oral Tablet (Ativan)Indications :Anxiety Take 1 Tablet by mouth 3 times a day as needed for Anxiety. 90 Tablet 04/13/2024 Active Ozempic (0.25 or 0.5 MG/DOSE) 2 MG/3ML Solution Pen-injector (Semaglutide(0.25 or 0.5MG/DOS))Indicati ons:Type 2 diabetes mellitus with hemoglobin A1c goal of less than 7.0% (HCC),Type 2 diabetes mellitus with hemoglobin A1c goal of less than or equal to 9.0% (HCC) Inject 0.25 mg once weekly x 4 week then increase to 0.5 mg once weekly thereafter 9 mL 04/16/2024 Active documented as of this encounter (statuses as of 04/21/2024) Active Problems Problem Noted Date Diagnosed Date Body mass index (BMI) of 45.0 to [...] as of this encounter (statuses as of 04/21/2024) Resolved Problems Problem Noted Date Diagnosed Date [...] as of this encounter (statuses as of 04/21/2024) Immunizations Name Administration Dates Next Due COVID-19 mRNA, LNP-s, No Pre serve, 2-Dose Series (Moderna) 02/16/2021,01/12/2021 COVID-19, mRNA, LNR-S, Bival ent, PF, 10mcg/0.2 ml (Moderna) 6m to 5 years 08/24/2022,09/27/2021 PPD 06/12/2017 Pneumococcal Conjugate Vacci ne, 20-valent ([id number]) 10/10/2022 Pneumococcal Polysaccharide PPV23 (Pneumovax) 03/21/2016 Seasonal [...] encounter Miscellaneous Notes * Telephone Encounter - Vee Sun OSA - 04/21/2024 11:57 AM EDT 04/21/24 Paperwork with note dropped of for Provider. Pt was taking Ozempic and both were in [facility] so pt blocked them. Pt had to cancell both scripts to clear them out. Pt would like the correct prescription back to them. Any questions, please call pt to confirm. Paperwork in envelope placed in provider's mail bin on 04/21/24. documented in this encounter Plan of Treatment Upcoming Encounters Date Type Department Care Team (Late st Contact Info) Description 06/12/2024 2:00 PM EDT Cardiac Studies Cardiac Studies, [address] [address] 07/09/2024 8:00 AM EDT Office Visit Pharmacy, [place] [address] [place] [address] [facility] [place] [address] 07/29/2024 11:30 AM EDT Office Visit Gynecology/Oncology, [place] [address] [place] [address] Alissa Martinez PA-C [address] [place] [address] 10/26/2024 12:10 PM EST Office Visit Family Practice, [place] [address] [place] [phone] Jennifer Khoury DO [address] [place] [address] Scheduled Procedures Name Priority Associated Diagnoses Date/Ti me COLONOSCOPY FLEXIBLE PROXIMAL DIAGNOSTIC Recall Screen for colon cancer Health Maintenance Due Date Last Done Comments HIV Screening 1985 Hepatitis C Screening 1988 Hepatitis B (1 of 3 - 19+ 3-dose series) 1989 Cologuard 2015 Colonoscopy 2015 Colorectal Cancer Screening 2015 Fecal Occult Blood Test 2015 Sigmoidoscopy 2015 Depression Screening 03/22/2022 03/22/2021 COVID-19 Vaccine (2022- season) 2023 08/24/2022, 09/27/2021, 02/16/2021, Additional history exists Mammogram 11/25/2024 11/25/2023, 10/28, 05/08/2022, Additional history exists GFR 04/13/2025 04/13/2024, 09/27, 04/10/2023, Additional history exists TSH 04/13/2025 04/13/2024, 09/27, 08/17/2023, Additional history exists Albumin/Creatinine Ratio 01/22/2026 01/22/2023 Diabetes Screening 04/13/2027 04/13/2024, 0 04/13/2024, 10/11/2023, Additional history exists Lipid Panel 04/13/2029 04/13/2024, 12/27, 10/10/2022, Additional history exists DTaP,Tdap,and Td Vaccines (3 - Td or Tdap) 10/10/2032 10/10/2022, 05/07/2012, 10/07/2000 Pneumococcal Vaccine: Pediatrics (0 to 5 Years) and At-Risk Patients (6 to 64 Years) Completed 10/10/2022, 03/21/2016 Influenza Vaccine (FLU shot) Completed 04/2023, 07/09/2022, 08/29/2021, Additional history exists Zoster Vaccines Completed 10/11/2023, 04/10/2023 GARDASIL-HPV IMMUNIZATION SERIES Aged Out No longer eligible based on [...] and were consensually agreed upon. Care Teams Water And Fire Technician Relationship Specialty Start Date End Date Jennifer Khoury DO [address] [facility] [place] [address] PCP - General Family Medicine 05/13/14 documented as of this encounter
--- OUTSIDE RECORDS SUMMARY | 2024-06-09 07:26 | External Medical Summary | Summary of Care ---
Author Name Unknown Organization [facility] Address [address] [place] [address] Phone [phone] Care Team Providers Care Integration Director Name Role Phone Jennifer Khoury DO Primary Care Provider [phone] Reason for Visit * Reason Onset Date Comments Medication Problem 04/22/2024 Ozempic Encounter Details Date Type Department Care Team ([facility] st Contact Info) Description 04/22/2024 Telephone [place] [address] [place] [address] Jennifer Khoury DO [address] [place] [address] Medication Problem (Ozempic) Allergies Active Allergy Reactions Criticality Noted Date Comments Nickel Rash 08/15/2017 documented as of this encounter (statuses as of 04/22/2024) Medications Medication Sig Dispensed Refills Start Date End Date Status hyoscyamine (LEVSIN) 0.125 MG SL tablet Take 1 Tab by mouth every 4 hours as needed for Cramping. Abdominal pain 40 Tab 2 07/19/2017 Active Naproxen Sodium 220 MG Oral Tablet Take 2 Tablets by mouth 2 times a day with morning and evening meals. Active ondansetron (ZOFRAN) 8 MG TabletIndications :Nausea Take 1 Tab by mouth every 8 hours as needed for Nausea. 90 Tab 08/11/2018 Active Loratadine 10 MG Oral Capsule Take 1 Capsule by mouth in the morning. Active Azelastine HCl (ASTELIN) 0.1 % nasal sprayIndications: Otalgia,Dysfuncti on of eustachian tube,Chronic rhinitis Administer 2 Sprays [...] Additional Information Patient not taking.Reported on 04/13/2024 Nystatin-Triamcin olone 481189-3.1 UNIT/GM-% External Cream (Mycolog)Indicati ons:Cutaneous candidiasis APPLY TOPICALLY TO AFFECTED AREA TWICE A DAY FOR 2 WEEKS 30 g 1 11/09/2022 Active Venlafaxine HCl ER 37.5 MG Oral Capsule Extended Release 24 Hour (Effexor XR) Take 1 Capsule by mouth in the morning. 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 180 Each 3 02/04/2023 Active Furosemide 20 MG Oral Tablet (Lasix) TAKE 1 TABLET DAILY 90 Tablet 3 06/24/2023 Active Lisinopril 10 MG Oral Tablet (Prinivil)Indicat ions:HTN, goal below 140/90 TAKE 1 TABLET DAILY 90 Tablet 3 06/24/2023 Active Levothyroxine Sodium 125 MCG Oral Tablet (Levoxyl) Take 1 Tablet by mouth in the morning. (at least 30 min prior to breakfast or other meds). 90 Tablet 3 08/21/2023 Active Omeprazole 20 MG Oral Capsule Delayed Release (PriLOSEC)Indicat ions:Gastroesopha geal reflux disease TAKE 1 CAPSULE IN THE MORNING AND 1 CAPSULE BEFORE BEDTIME 180 Capsule 3 10/30/2023 Active Venlafaxine HCl ER 75 MG Oral Capsule Extended Release 24 Hour (Effexor XR) TAKE 1 CAPSULE IN THE MORNING (DO NOT CUT, CRUSH OR CHEW) 90 Capsule 02/11/2024 Active Montelukast Sodium 10 MG Oral Tablet (Singulair)Indica tions:Allergic rhinitis TAKE 1 TABLET DAILY 90 Tablet 3 02/11/2024 Active Albuterol Sulfate HFA 108 (90 Base) MCG/ACT Inhalation Aerosol SolutionIndicatio ns:Asthma with severity to be determined USE 2 INHALATIONS FOUR TIMES A DAY 25.5 g 3 04/13/2024 Active LORazepam 0.5 MG Oral Tablet (Ativan)Indicatio ns:Anxiety Take 1 Tablet by mouth 3 times a day as needed for Anxiety. 90 Tablet 04/13/2024 Active Ozempic (0.25 or 0.5 MG/DOSE) 2 MG/3ML Solution Pen-injector (Semaglutide(0.25 or 0.5MG/DOS))Indica tions:Type 2 diabetes mellitus with hemoglobin A1c goal of less than 7.0% (HCC),Type 2 diabetes mellitus with hemoglobin A1c goal of less than or equal to 9.0% (HCC) Inject 0.25 mg once weekly x 4 week then increase to 0.5 mg once weekly thereafter 9 mL 04/22/2024 Active Ozempic (0.25 or 0.5 MG/DOSE) 2 MG/3ML Solution Pen-injector (Semaglutide(0.25 or 0.5MG/DOS))Indica tions:Type 2 diabetes mellitus with hemoglobin A1c goal of less than 7.0% (HCC),Type 2 diabetes mellitus with hemoglobin A1c goal of less than or equal to 9.0% (HCC) Inject 0.25 mg once weekly x 4 week then increase to 0.5 mg once weekly thereafter 9 mL 04/16/2024 4 Discontinue d(Refill) documented as of this encounter (statuses as of 04/22/2024) Active Problems Problem Noted Date Diagnosed Date [...] as of this encounter (statuses as of 04/22/2024) Resolved Problems Problem Noted Date Diagnosed Date [...] as of this encounter (statuses as of 04/22/2024) Immunizations Name Administration Dates Next Due COVID-19 mRNA, LNP-s, No Pre serve, 2-Dose Series (Moderna) 02/16/2021,01/12/2021 COVID-19, mRNA, LNR-S, Bival ent, PF, 10mcg/0.2 ml (Moderna) 6m to 5 years 08/24/2022,09/27/2021 PPD 06/12/2017 Pneumococcal Conjugate Vacci ne, 20-valent ([id number]) 10/10/2022 Pneumococcal Polysaccharide PPV23 (Pneumovax) 03/21/2016 Seasonal [...] encounter Miscellaneous Notes * Telephone Encounter - Nette Maloney RPh - 04/22/2024 9:03 AM EDT Script sent. Nette Maloney, PharmD, BCACP Clinical Pharmacist Medication Therapy Disease Management 04/22/2024, 9:03 AM * Telephone Encounter - Tala Fernandez LPN - 04/22/2024 8:08 AM EDT Pt sent a message stating that [facility] two [facility]'s. She canceled [facility] orders [facility] to [facility] getting [facility]. She would like us to [facility] prescription. Thanks Looks like Ozempic 0.25 mg or 0.5 mg Thanks documented in this encounter Plan of Treatment Upcoming Encounters Date Type Department Care Team (Late st Contact Info) Description 06/12/2024 2:00 PM EDT Cardiac Studies Cardiac Studies, [place] [address] [place] [address] 07/09/2024 8:00 AM EDT Office Visit Pharmacy, [place] [address] [place] [address] [facility] [address] [place] [address] 07/29/2024 11:30 AM EDT Office Visit Gynecology/Oncology, [place] [address] [place] [address] Alissa Martinez PA-C [address] [place] [address] 10/26/2024 12:10 PM EST Office Visit Family Practice, [place] [address] [place] [address] Jennifer Khoury DO [address] [place] [address] Scheduled Procedures Name Priority Associated Diagnoses Date/Ti me COLONOSCOPY FLEXIBLE PROXIMAL DIAGNOSTIC Recall Screen for colon cancer Health Maintenance Due Date Last Done Comments HIV Screening 1985 Hepatitis C Screening 1988 Hepatitis B (1 of 3 - 19+ 3-dose series) 1989 Cologuard 2015 Colonoscopy 2015 Colorectal Cancer Screening 2015 Fecal Occult Blood Test 2015 Sigmoidoscopy 2015 Depression Screening 03/22/2022 03/22/2021 COVID-19 Vaccine ( season) 2023 08/24/2022, 09/27/2021, 02/16/2021, Additional history [...] Not on filedocumented as of this encounter Visit Diagnoses Diagnosis Type 2 diabetes mellitus with hemoglobin A1c goal of less than 7.0% (HCC) Type 2 diabetes mellitus with hemoglobin A1c goal of less than or equal to 9.0% (HCC) documented in this encounter Advance Directives * Full Code (Latest Code Status on File) Date Activated Date Inactivated Comments 08/24/2019 11:29 AM 08/24/2019 6:26 PM This orde r reflects the patients wishes and were consensually agreed upon. Care Teams Integration Director Relationship Specialty Start Date End Date Jennifer Khoury DO [address] [place] [address] PCP - General Family Medicine 05/13/14 documented as of this encounter
--- OUTSIDE RECORDS SUMMARY | 2024-06-09 07:27 | External Medical Summary | Summary of Care ---
Author Name Unknown Organization [facility] Address [address] [place] [address] Phone [phone] Care Team Providers Care Babysitter Name Role Phone Jennifer Khoury DO Primary Care Provider [phone] Encounter Details Date Type Department Care Team (Late st Contact Info) Description 04/20/2024 Orders Only Outcomes Research Department [address], [place] [id number] Katina Rosa CHRA [facility] [employer] [facility] Other*[id number] Allergies Active Allergy Reactions Criticality Noted Date Comments Nickel Rash 08/15/2017 documented as of this encounter (statuses as of 04/20/2024) Medications Medication Sig Dispensed Refills Start Date [...] Patient not taking.Reported on 04/13/2024 Nystatin-Triamcinol one 409517-3.1 UNIT/GM-% External Cream (Mycolog)Indication s:Cutaneous candidiasis APPLY [...] as of this encounter (statuses as of 04/20/2024) Active Problems Problem Noted Date Diagnosed Date [...] as of this encounter (statuses as of 04/20/2024) Resolved Problems Problem Noted Date Diagnosed Date Resolved Date Body mass index (BMI) of 45. 0 to 49.9 in adult 04/11/2021 05/09/2023 Overview: Per Obesity protocol - Per Obesity Taxonomy Endometrial cancer 09/07/2019 Cancer Staging:Clinical stage from 08/18/2019:FIGO Stage IA(cT1a, [...] as of this encounter (statuses as of 04/20/2024) Immunizations Name Administration Dates Next Due COVID-19 mRNA, LNP-s, No Pre serve, 2-Dose Series (Moderna) 02/16/2021,01/12/2021 COVID-19, mRNA, LNR-S, Bival ent, PF, 10mcg/0.2 ml (Moderna) 6m to 5 years 08/24/2022,09/27/2021 PPD 06/12/2017 Pneumococcal Conjugate Vacci ne, 20-valent ([id number]) 10/10/2022 Pneumococcal Polysaccharide PPV23 (Pneumovax) 03/21/2016 Seasonal [...] on file documented as of this encounter Plan of Treatment Upcoming Encounters Date Type Department Care Team (Late st Contact Info) Description 06/12/2024 2:00 PM EDT Cardiac Studies Cardiac Studies, [place] [address] [place] [address] 07/09/2024 8:00 AM EDT Office Visit Pharmacy, [place] [address] [place] [address] [facility] [address] [place] [address] 07/29/2024 11:30 AM EDT Office Visit Gynecology/Oncology, [place] [address] [place] [address] Alissa Martinez PA-C [address] [place] [address] 10/26/2024 12:10 PM EST Office Visit Family [facility], [place] [address] [place] [address] Jennifer Khoury DO [address] [place] [address] Scheduled Orders Name Type Priority Associated Diagnoses Orde r Schedule MYCODE SUBSEQUENT ADULT Lab Routine [facility] Other*[id number] Every 6 Months for 2 Occurrences starting 04/20/2024 until 05/10/2025 Scheduled Procedures Name Priority Associated Diagnoses Date/Ti [...] as of this encounter Visit Diagnoses Diagnosis [facility] Other*[id number] documented in this encounter Advance Directives * Full Code (Latest Code Status on File) Date Activated Date Inactivated Comments 08/24/2019 11:29 AM 08/24/2019 6:26 PM This orde r reflects the patients wishes and were consensually agreed upon. Care Teams Babysitter Relationship Specialty Start Date End Date Jennifer Khoury DO [address] [place] [address] PCP - General Family Medicine 05/13/14 documented as of this encounter
--- OUTSIDE RECORDS SUMMARY | 2024-06-09 07:27 | External Medical Summary | Summary of Care ---
Author Name Unknown Organization [facility] Address [address] [place] [address] Phone [phone] Care Team Providers Care Replenishment Buyer Name Role Phone Jennifer Khoury DO Primary Care Provider [phone] Reason for Visit * Reason Comments Outpatient Testing Encounter Details Date Type Department Care Team (Late st Contact Info) Description 04/13/2024 9:20 AM EDT Laboratory Laboratory, [place] [address] [place] [address] [facility] [address] [place] [address] Encounter for long-term (current) use of medications; [employer] [facility] Other*[id number]; Family history of diabetes mellitus; Other specified hypothyroidism; HTN, goal below 140/90; Racing heart beat Allergies Active Allergy Reactions Criticality Noted Date Comments Nickel Rash 08/15/2017 documented as of this encounter (statuses as of 04/13/2024) Medications Medication Sig Dispensed Refills Start Date [...] Patient not taking.Reported on 04/13/2024 Nystatin-Triamcinol one 250463-1.1 UNIT/GM-% External Cream (Mycolog)Indication s:Cutaneous candidiasis APPLY [...] needed for Anxiety. 90 Tablet 04/13/2024 Active documented as of this encounter (statuses as of 04/13/2024) Active Problems Problem Noted Date Diagnosed Date Body mass index (BMI) of 45.0 to 49.9 in adult 1 12/12/2022 Body mass index (BMI) of 40.0 to 44.9 in adult 0 05/06/2023 Overview: Per Obesity protocol - Per Obesity protocol - Per Obesity Taxonomy HTN, goal below 140/90 01/04/2015 Chronic rhinitis [...] as of this encounter (statuses as of 04/13/2024) Resolved Problems Problem Noted Date Diagnosed Date [...] 12/26/2017 09/11/2019 Right shoulder pain 12/03/2014 08/11/20 PAIN IN LIMB, LEFT FOOT 05/16/201007/28 Polyneuropathy [...] as of this encounter (statuses as of 04/13/2024) Immunizations Name Administration Dates Next Due COVID-19 mRNA, LNP-s, No Pre serve, 2-Dose Series (Moderna) 02/16/2021,01/12/2021 COVID-19, mRNA, LNR-S, Bival ent, PF, 10mcg/0.2 ml (Moderna) 6m to 5 years 08/24/2022,09/27/2021 PPD 06/12/2017 Pneumococcal Conjugate Vacci ne, 20-valent ([id number]) 10/10/2022 Pneumococcal Polysaccharide PPV23 (Pneumovax) 03/21/2016 Seasonal Influenza, PF, 6 M & above, IM , (FluLaval or Fluzone) 07/09/2022,08/29/2021,08/17/2020,06/29,10/07/2018,07/19/2017 07/19/2018 Seasonal Influenza, Quadriva lent, No Preserve, IM 08/03/2023,08/03/2016,08/11/2015 Seasonal Influenza, Split, I IV3, With Preserve, Inj 08/08/2010,08/23/2008 TD - Tetanus/Diptheria (ADULT) 10/07/2000 TDAP (age 10 and older)(Boostrix) 10/10/2022,08/2012 Zoster [...] money to get more. Never true 03/22/2021 Sex and Gender Information Value Date Recorded [...] 2:00 PM EDT Cardiac Studies Cardiac Studies, [place] [address] [place] [address] 07/29/2024 11:30 AM EDT Office Visit Gynecology/Oncology, [place] [address] [place] [address] Alissa Martinez PA-C [address] [place] [address] 10/26/2024 12:10 PM EST Office Visit Family [facility] [address] [place] [id number] Jennifer Khoury DO [address] [place] [address] Pending Results Name Type Priority Associated Diagnoses Date /Time LIPID PANEL WITH DIRECT LDL IF TG IS HIGH Lab Routine Encounter for long-term (current) use of medications 04/13/2024 9:22 AM EDT MYCODE INITIAL ADULT Lab Routine [facility] Other*[id number] 04/13/2024 9:22 AM EDT HEMOGLOBIN A1C Lab Routine Family history of diabetes mellitus 04/13/2024 9:22 AM EDT TSH WITH FREE T4 IF INDICATED Lab Routine Other specified hypothyroidism 04/13/2024 9:22 AM EDT BASIC METABOLIC PANEL Lab Routine HTN, goal below 140/90 04/13/2024 9:22 AM EDT HEPATIC FUNCTION PANEL Lab Routine HTN, goal below 140/90 04/13/2024 9:22 AM EDT D-DIMER Lab Routine Racing heart beat 04/13/2024 9:22 AM EDT MYCODE INITIAL ADULT-PINK Lab Routine [facility] Other*[id number] 04/13/2024 9:22 AM EDT MYCODE SST1 Lab Routine [facility] Other*[id number] 04/13/2024 9:22 AM EDT MYCODE SST2 Lab Routine [employer] Other*[id number] 04/13/2024 9:22 AM EDT Scheduled Procedures Name Priority Associated Diagnoses Date/Ti me COLONOSCOPY FLEXIBLE PROXIMAL DIAGNOSTIC Recall Screen for colon cancer Health Maintenance Due Date Last Done Comments HIV Screening 1985 Hepatitis C Screening 1988 Hepatitis B (1 of 3 - 19+ 3-dose series) 1989 Cologuard 2015 Colonoscopy 2015 Colorectal Cancer Screening 2015 Fecal Occult Blood Test 2015 Sigmoidoscopy 2015 Depression Screening 03/22/2022 03/22/2021 COVID-19 Vaccine (2022-24 season) 2023 08/24/2022, 09/27/2021, 02/16/2021, Additional history exists GFR 10/11/2024 10/11/2023, 03/28, 01/22/2023, Additional history exists TSH 10/11/2024 10/11/2023, 07/29, 04/10/2023, Additional history exists Mammogram 11/25/2024 11/25/2023, 10/28, 05/08/2022, Additional history exists Albumin/Creatinine Ratio 01/22/2026 01/22/2023 Diabetes Screening 10/11/2026 10/11/2023, 0 04/10/2023, 01/22/2023, Additional history exists Lipid Panel 01/23/2028 01/22/2023, 09/27, 08/29/2021, Additional history exists DTaP,Tdap,and Td Vaccines (3 [...] as of this encounter Visit Diagnoses Diagnosis Encounter for long-term (current) use of medications Encounter for long-term (current) use of other medications [employer] [facility] Other*[id number] Family history of diabetes mellitus Other specified hypothyroidism HTN, goal below 140/90 Unspecified essential hypertension Racing heart beat Tachycardia, unspecified documented in this encounter Advance Directives * Full Code (Latest Code Status on File) Date Activated Date Inactivated Comments 08/24/2019 11:29 AM 08/24/2019 6:26 PM This orde r reflects the patients wishes and were consensually agreed upon. Care Teams Replenishment Buyer Relationship Specialty Start Date End Date Jennifer Khoury DO [address] [facility] [place] [address] PCP - General Family Medicine 05/13/14 documented as of this encounter
--- OUTSIDE RECORDS SUMMARY | 2024-06-09 07:27 | External Medical Summary | Summary of Care ---
Author Name Unknown Organization [facility] Address [address] [place] [address] Phone [phone] Care Team Providers Care Respiratory Supervisor Name Role Phone Jennifer Khoury DO Primary Care Provider Reason for Visit * Reason Comments Dosage Adjustment In Person (Anticoag Cl inic) Diabetes Follow-Up Diabetes Education * Evaluate & Treat - Unlimited Visits (Within 10 days (routine)) - Pending Review Specialty Diagnoses / Procedures Referred By Paul cifuentes Referred To Contact Pharmacist / Pharmacy Diagnoses Body mass index (BMI) of 40.0 to 44.9 in adult ([facility]) Type 2 diabetes mellitus with hemoglobin A1c goal of less than or equal to 9.0% ([facility]) Jennifer Khoury DO [address] [place] [address] Referral ID Status Reason Start Date Expiration Date Visits Requested Visits Authorized [id number] Pending Review Specialty Services Required 04/16/[phone] Encounter Details Date Type Department Care Team (Late st Contact Info) Description 04/16/2024 2:50 PM EDT Office Visit Pharmacy, [address] [place] [address] [facility] [address] [place] [address] Type 2 diabetes mellitus with hemoglobin A1c goal of less than 7.0% ([facility])*; Body mass index (BMI) of 40.0 to 44.9 in adult ([facility]); Type 2 diabetes mellitus with hemoglobin A1c goal of less than or equal to 9.0% ([facility]) Allergies Active Allergy Reactions Criticality Noted Date Comments Nickel Rash 08/15/2017 documented as of this encounter (statuses as of 04/16/2024) Medications Medication Sig Dispensed Refills Start Date [...] Patient not taking.Reported on 04/13/2024 Nystatin-Triamci nolone 144164-7.1 UNIT/GM-% External Cream (Mycolog)Indicat ions:Cutaneous candidiasis APPLY TOPICALLY TO AFFECTED AREA TWICE A DAY FOR 2 WEEKS 30 g 1 3 Active Venlafaxine HCl ER 37.5 MG Oral Capsule Extended Release 24 Hour (Effexor XR) Take 1 Capsule by mouth in the morning. 90 Capsule 3 3 Active Additional Information Patient not taking.Reported on 04/13/2024 Fluticasone-Salm eterol 100-50 MCG/ACT Inhalation Aerosol Powder [...] BEFORE BEDTIME 180 Capsule 3 4 Active Venlafaxine HCl ER 75 MG Oral Capsule Extended Release 24 Hour (Effexor XR) TAKE 1 CAPSULE IN THE MORNING (DO NOT CUT, CRUSH OR CHEW) 90 Capsule 4 Active Montelukast Sodium 10 MG Oral [...] once weekly thereafter 9 mL 4 Active Ozempic (0.25 or 0.5 MG/DOSE) 2 MG/1.5ML Solution Pen-injector (Semaglutide(0.2 5 or 0.5MG/DOS))Indic ations:Body mass index (BMI) of 40.0 to 44.9 in adult (HCC),Type 2 diabetes mellitus with hemoglobin A1c goal of less than or equal to 9.0% (HCC) Inject 0.25 mg under the skin once a week. 1.5 mL 3 4 04/16/20 24 Discontinued(Ref ill) Ozempic (0.25 or 0.5 MG/DOSE) 2 MG/1.5ML Solution Pen-injector (Semaglutide(0.2 5 or 0.5MG/DOS))Indic ations:Type 2 diabetes mellitus with hemoglobin A1c goal of less than 7.0% (HCC),Body mass index (BMI) of 40.0 to 44.9 in adult (HCC),Type 2 diabetes mellitus with hemoglobin A1c goal of less than or equal to 9.0% (HCC) Inject 0.25 mg under the skin once a week. 1.5 mL 3 4 04/16/20 24 Discontinued documented as of this encounter (statuses as of 04/16/2024) Active Problems Problem Noted Date Diagnosed Date [...] as of this encounter (statuses as of 04/16/2024) Resolved Problems Problem Noted Date Diagnosed Date [...] as of this encounter (statuses as of 04/16/2024) Immunizations Name Administration Dates Next Due COVID-19 mRNA, LNP-s, No Pre serve, 2-Dose Series (Moderna) 02/16/2021,01/12/2021 COVID-19, mRNA, LNR-S, Bival ent, PF, 10mcg/0.2 ml (Moderna) 6m to 5 years 08/24/2022,09/27/2021 PPD 06/12/2017 Pneumococcal Conjugate Vacci ne, 20-valent ([id number]) 10/10/2022 Pneumococcal Polysaccharide PPV23 (Pneumovax) 03/21/2016 Seasonal [...] on file documented as of this encounter Progress Notes * Nette Maloney, [facility] - 04/16/2024 2:41 PM EDT Medication Therapy Disease Management [facility] - Diabetes Management Progress Note Kirti Haas, identified by name and date of , is a 53 year old female being seen for diabetes management/education. Patient presents for initial diabetic visit. Past Medical History: Diagnosis Date Allergic rhinitis Asthma, severity to be determined Dyslipidemia, goal LDL below 100 Endometrial cancer (HCC) 09/07/2019 Esophageal reflux Fam hx-cardiovas dis NEC 06/24/2001 HTN, goal below 130/80 Hypothyroidism age 16 no symptoms- enlarged thyroid Other specified gastritis without mention of hemorrhage 04/05/08 mild chronic gastritis Diagnosis: Type 2 Age of diabetes diagnosis: 53 years old Family history of diabetes: mom had it but it was diet controlled Microvascular complications: none Macrovascular complications: dyslipidemia DIABETES: Current diabetic medications: None started yet Medication Injection Site: N/A Lifestyle: Diet: patient is working on her diet Glucose Review/SMBG: not currently checking Hypoglycemia: Does your blood sugar go below 70 mg/dL? No Hyperglycemia symptoms present: none Recent Labs Units 04/13/24 0922 HEMOGLOBIN A1C - [facility] % 5.8* Recent Labs Units 04/13/24 0922 10/11/23 1015 04/10/23 0928 ESTIMATED GLOMERULAR FILTRATION RATE - [facility] mL/min 76 80 86 CREATININE - [facility] mg/dL 0.9 0.9 0.8 HYPERTENSION: Patient on ACEi/ARB: yes BP Readings from Last 3 Encounters: 04/13/24 134/76 10/11/23 138/72 07/25/23 132/76 Blood pressure at goal: yes HYPERLIPIDEMIA: Patient is taking moderate or high intensity statin: none HEALTH MAINTENANCE REVIEW: Health Maintenance Due Topic Date Due HIV Screening Never done Hepatitis C Screening Never done Hepatitis B (1 of 3 - 19+ 3-dose series) Never done Colorectal Cancer Screening Never done Depression Screening 03/22/2022 COVID-19 Vaccine (2022- season) 2023 ASSESSMENT & PLAN: ICD-10-CM 1. Type 2 diabetes mellitus with hemoglobin A1c goal of less than 7.0% (HCC) E11.9 2. Body mass index (BMI) of 40.0 to 44.9 in adult (HCC) Z68.41 3. Type 2 diabetes mellitus with hemoglobin A1c goal of less than or equal to 9.0% (HCC) E11.9 BG Readings - Blood sugars not available. Pt isnt checking her blood sugar- just recently dx with diabetes. Medications - Reviewed current regimen, patient is not taking any thing currently. Pcp started ozempic. Taught patient how to use Ozempic pen. Reviewed with patient individual steps to prepare and use Ozempic: wash hands; ensure liquid is clear and colorless; remove protective seal from pen needle, screw needle onto pen, remove both outer and inner needle caps; prime pen by dialing to flow check symbol and checking for drops (first use only); dial pen to appropriate dose; inject into indicated injection site; press and hold dose button until dial reads 0; count to 6; remove needle from skin; dispose of pen needle appropriately. Pen can be stored at room temperature up to 56 days. Patient verbalized understanding and displayed successful technique. Discussed potential need for PA. Discussed potential side effects and how to reduce chance of this occurring. Patient to reach out via myg with any issues. Diet, Exercise, Lifestyle - Patient's daughter is a outpatient physical therapist assistant and she is working on balance and mobility right now. Discussed with patient everything in moderation and to pair fruit with protein sources. Patient is agreeable to SMBG 0 time(s) daily. Patient aware to contact clinic if any hypoglycemia before next visit. MEDICATION CHANGES: yes, see below; [facility] Diabetic Medications: Ozempic 0.25 mg once weekly x 4 weeks, then increase to 0.5 mg once weekly thereafter HEALTH MAINTENANCE INTERVENTIONS: Labs: Up to Date Immunizations: Up to Date Foot Exam: Up to Date Eye Exam: Up to Date Annual Wellness Visit: N/A FOLLOW UP: Return to clinic in 12 weeks 07/09/2024 Nette Maloney [facility] Clinical Pharmacist - Furniture Painter Medication Therapy Management Clinic 04/16/2024, 2:43 PM documented in this encounter Plan of Treatment Upcoming Encounters Date Type Department Care Team (Late st Contact Info) Description 06/12/2024 2:00 PM EDT Cardiac Studies Cardiac Studies, [place] [address] [place] [address] 07/09/2024 8:00 AM EDT Office Visit Pharmacy, [place] [address] [place] [address] [facility] [address] [place] [address] 07/29/2024 11:30 AM EDT Office Visit Gynecology/Oncology, [place] [address] [place] [address] Alissa Martinez PA-C [address] [place] [address] 10/26/2024 12:10 PM EST Office Visit Family [facility], [place] [address] [place] [address] Jennifer Khoury, [address] [place] [address] Scheduled Procedures Name Priority Associated Diagnoses Date/Ti [...] hemoglobin A1c goal of less than 7.0% (HCC)- Primary Body mass index (BMI) of 40.0 to 44.9 in adult (HCC) Type 2 diabetes mellitus with hemoglobin A1c goal of less than or equal to 9.0% (HCC) documented in this encounter Advance Directives * Full Code (Latest Code Status on File) Date Activated Date Inactivated Comments 08/24/2019 11:29 AM 08/24/2019 6:26 PM This orde r reflects the patients wishes and were consensually agreed upon. Care Teams Respiratory Supervisor Relationship Specialty Start Date End Date Jennifer Khoury DO [address] [place] [address] PCP - General Family Medicine 05/13/14 documented as of this encounter
--- OUTSIDE RECORDS SUMMARY | 2024-06-09 07:27 | External Medical Summary | Summary of Care ---
Author Name Unknown Organization [facility] Address [address] [place] [address] Phone [phone] Care Team Providers Care Dba Name Role Phone Jennifer Khoury DO Primary Care Provider Reason for Visit * Reason Onset Date Comments Pharmacy Questions 04/14/2024 Lab result (L ipid panel) Encounter Details Date Type Department Care Team (Late st Contact Info) Description 04/14/2024 Telephone [facility] [address] [place] [address] Jennifer Khoury DO [address] [place] [address] Pharmacy Questions (Lab result (Lipid panel)) Allergies Active Allergy Reactions Criticality Noted Date Comments Nickel Rash 08/15/2017 documented as of this encounter (statuses as of 04/14/2024) Medications Medication Sig Dispensed Refills Start Date [...] Patient not taking.Reported on 04/13/2024 Nystatin-Triamcinol one [id number] UNIT/GM-% External Cream (Mycolog)Indication s:Cutaneous candidiasis APPLY [...] as of this encounter (statuses as of 04/14/2024) Active Problems Problem Noted Date Diagnosed Date [...] as of this encounter (statuses as of 04/14/2024) Resolved Problems Problem Noted Date Diagnosed Date [...] as of this encounter (statuses as of 04/14/2024) Immunizations Name Administration Dates Next Due COVID-19 mRNA, LNP-s, No Pre serve, 2-Dose Series (Moderna) 02/16/2021,01/12/2021 COVID-19, mRNA, LNR-S, Bival ent, PF, 10mcg/0.2 ml (Moderna) 6m to 5 years 08/24/2022,09/27/2021 PPD 06/12/2017 Pneumococcal Conjugate Vacci ne, 20-valent ([id number]) 10/10/2022 Pneumococcal Polysaccharide PPV23 (Pneumovax) 03/21/2016 Seasonal [...] encounter Miscellaneous Notes * Telephone Encounter - Angel Harrison [facility] - 04/14/2024 3:33 PM EDT Spoke to pt regarding recent lipid panel, advised of results and diet and exercise to help lower this. Pt is working on diet and losing weight. Pt verbalized understanding and thanked us for the call. Thank You, Angel Acevedo [facility] Clinical Pharmacist [facility] 04/14/2024, 3:35 PM documented in this encounter Plan of Treatment Upcoming Encounters Date Type Department Care Team (Late st Contact Info) Description 06/12/2024 2:00 PM EDT [facility] [address] [place] [address] 07/29/2024 11:30 AM EDT [facility] [address] [place] [address] Alissa Martinez PA-C [address] [place] [address] 10/26/2024 12:10 PM EST Office Visit Family [facility] [address] [place] [address] Jennifer Khoury DO [address] [place] [address] Scheduled Procedures Name Priority Associated Diagnoses Date/Ti [...] and were consensually agreed upon. Care Teams Dba Relationship Specialty Start Date End Date Jennifer Khoury DO [address] [place] [address] PCP - General Family Medicine 05/13/14 documented as of this encounter
--- OUTSIDE RECORDS SUMMARY | 2024-06-09 07:27 | External Medical Summary | Summary of Care ---
Author Name Unknown Organization [facility] Address [address] [place] [address] Phone [phone] Care Team Providers Care Chocolate Dipper Name Role Phone Jennifer Khoury DO Primary Care Provider [phone] Reason for Referral * Precert (Within 10 days (routine)) - Pending Review Specialty Diagnoses / Procedures Referred By Contterese t Referred To Contact Cardiac Studies Diagnoses RANKIN (dyspnea on exertion) Racing heart beat Procedures ECHO, COMPLETE (2D), TRANS-THORACIC Jennifer Khoury DO [address] [place] [address] Referral ID Status Reason Start Date Expiration Date Visits Requested Visits Authorized [id number] Pending Review Precert 04/13/2024 999 999 Reason for Visit * Reason Comments Follow Up 6 month return Would like to discuss her Effexor Would like to discuss heart Encounter Details Date Type Department Care Team (Late st Contact Info) Description 04/13/2024 8:30 AM EDT Office Visit [facility] [address] [place] [facility] [place] [address] Jennifer Khoury DO [address] [facility] [place] [id number] Other specified hypothyroidism*; Asthma with severity to be determined; Anxiety; Body mass index (BMI) of 45.0 to 49.9 in adult (HCC); HTN, goal below 140/90; Family history of diabetes mellitus; RANKIN (dyspnea on exertion); Racing heart beat Allergies Active Allergy Reactions [...] Patient not taking.Reported on 04/13/2024 Nystatin-Triamcin olone 737886-2.1 UNIT/GM-% External Cream (Mycolog)Indicati ons:Cutaneous candidiasis APPLY [...] needed for Anxiety. 90 Tablet 04/13/2024 Active Albuterol Sulfate HFA 108 (90 Base) MCG/ACT Inhalation Aerosol SolutionIndicatio ns:Asthma with severity to be determined USE 2 INHALATIONS FOUR TIMES A DAY 25.5 g 3 02/28/2021 4 Discontinue d(Refill) LORazepam 0.5 MG Oral Tablet (Ativan)Indicatio ns:Anxiety Take by mouth 1 Tablet as needed in the morning AND 1 Tablet as needed at noon AND 1 Tablet as needed in the evening for Anxiety. 90 Tablet 01/26/2022 4 Discontinue d(Refill) documented as of this [...] PPD 06/12/2017 Pneumococcal Conjugate Vacci ne, 20-valent ([id number]) 10/10/2022 Pneumococcal Polysaccharide PPV23 (Pneumovax) 03/21/2016 Seasonal [...] Passive Smoke Exposure: Never Smokeless Tobacco: Never Tobacco Cessation:Counseling Given: Not Answered Alcohol Use Standard Drinks/Week Comments Yes 0 [...] on file documented as of this encounter Last Filed Vital Signs Vital Sign Reading Time Taken Comments Blood Pressure 134/76 04/13/2024 8:22 AM EDT Pulse 85 04/13/2024 8:22 AM EDT Temperature 36.2 C (97.1 F) 04/13/2024 8:22 AM ED T Respiratory Rate 16 04/13/2024 8:22 AM EDT Oxygen Saturation 96% 04/13/2024 8:22 AM EDT Inhaled Oxygen Concentration - - Weight 130.1 kg (286 lb 12.8 oz) 04/13/2024 8:22 AM EDT Height 165.1 cm (5' 5") 04/13/2024 8:22 AM EDT Body Mass Index 47.73 04/13/2024 8:22 AM EDT documented in this encounter Progress Notes * Марина Reaves LPN - 04/13/2024 9:12 AM EDT 04/13/24 9:12 AM Date to Remove: 04/20/2024 Time to Remove: 09 Serial Number: [id number] Ordering Provider: Iraida OLIVIA Results: n/a Марина Reaves LPN Zio patch applied in clinic, as per provider orders. * Jennifer Khoury, DO - 04/13/2024 8:30 AM EDT Subjective: Kirti Haas is a 53 year old female. Chief Complaint Patient presents with Follow Up 6 month return HPI: 53 year old female here today for a follow-up. She carries hx of Dyslipidemia, HTN, Asthma, Hypothyroidism, hx of endometrial cancer and taking medications as listed. Heart racing, with walking. No chest pain. Father [place] at age 38. Family hx of aortic aneursyms. Will go up to 170. Has gained weight that she had lost. Tried otc optivo and did not help. She would be interested in weight loss medication. BP controlled. No calf swelling. No recent long trips. PHM: Patient Active Problem List Diagnosis Family history of other cardiovascular diseases Asthma, allergic Hypothyroidism Allergic rhinitis FAM HX-DIABETES MELLITUS ADVANCE DIRECTIVE INFORMATION Backache Irritable bowel syndrome Other specified gastritis without mention of hemorrhage HX OF ESOPHAGEAL STRICTURE Esophageal reflux Dyslipidemia, goal LDL below 100 DISC DIS L4-L5 Allergic rhinitis Chronic rhinitis HTN, goal below 140/90 Endometrial cancer (HCC) Body mass index (BMI) of 40.0 to 44.9 in adult ([facility]) Body mass index (BMI) of 45.0 to 49.9 in adult (HCC) Current Outpatient Medications Medication Sig Dispense Refill hyoscyamine (LEVSIN) 0.125 MG SL tablet Take 1 Tab by mouth every 4 hours as needed for Cramping. Abdominal pain 40 Tab 2 Naproxen Sodium 220 MG Oral Tablet Take 2 Tablets by mouth 2 times a day with morning and evening meals. ondansetron (ZOFRAN) 8 MG Tablet Take 1 Tab by mouth every 8 hours as needed for Nausea. 90 Tab 0 Loratadine 10 MG Oral Capsule Take 1 Capsule by mouth in the morning. Azelastine HCl (ASTELIN) 0.1 % nasal spray Administer 2 Sprays into each nostril 2 times a day. 3 mL 1 Albuterol Sulfate HFA 108 (90 Base) MCG/ACT Inhalation Aerosol Solution USE 2 INHALATIONS FOUR TIMES A DAY 25.5 g 3 LORazepam 0.5 MG Oral Tablet (Ativan) Take by mouth 1 Tablet as needed in the morning AND 1 Tablet as needed at noon AND 1 Tablet as needed in the evening for Anxiety. 90 Tablet 0 Cetirizine HCl 10 MG Oral Tablet Chewable Take 1 Tablet by mouth in the morning. Nystatin-Triamcinolone 924905-8.1 UNIT/GM-% External Cream (Mycolog) APPLY TOPICALLY TO AFFECTED AREA TWICE A DAY FOR 2 WEEKS 30 g 1 Fluticasone-Salmeterol 100-50 MCG/ACT Inhalation Aerosol Powder Breath Activated (Advair Diskus) Inhale 1 Puff by mouth in the morning and 1 Puff before bedtime. 180 Each 3 Furosemide 20 MG Oral Tablet (Lasix) TAKE 1 TABLET DAILY 90 Tablet 3 Lisinopril 10 MG Oral Tablet (Prinivil) TAKE 1 TABLET DAILY 90 Tablet 3 Levothyroxine Sodium 125 MCG Oral Tablet (Levoxyl) Take 1 Tablet by mouth in the morning. (at least30 min prior to breakfast or other meds). 90 Tablet 3 Omeprazole 20 MG Oral Capsule Delayed Release (PriLOSEC) TAKE 1 CAPSULE IN THE MORNING AND 1 CAPSULE BEFORE BEDTIME 180 Capsule 3 Venlafaxine HCl ER 75 MG Oral Capsule Extended Release 24 Hour (Effexor XR) TAKE 1 CAPSULE IN THE MORNING (DO NOT CUT, CRUSH OR CHEW) 90 Capsule 0 Montelukast Sodium 10 MG Oral Tablet (Singulair) TAKE 1 TABLET DAILY 90 Tablet 3 Fexofenadine HCl 180 MG Oral Tablet Take 1 Tablet by mouth in the morning. (Patient not taking: Reported on 04/13/2024) Fluticasone Propionate 50 MCG/ACT Nasal Suspension (Flonase) USE 2 SPRAYS IN EACH NOSTRIL DAILY (Patient not taking: Reported on 04/13/2024) 48 g 3 Venlafaxine HCl ER 37.5 MG Oral Capsule Extended Release 24 Hour (Effexor XR) Take 1 Capsule by mouth in the morning. (Patient not taking: Reported on 04/13/2024) 90 Capsule 3 No current facility-administered medications for this visit. Review of patient's allergies indicates: Allergen Reactions Nickel Rash Objective: BP 134/76 | Pulse 85 | Temp 36.2 C (97.1 F) | Resp 16 | Ht 1.651 m (5' 5") | Wt 130.1 kg (286 lb 12.8 oz) | SpO2 96% | BMI 47.73 kg/m | BSA 2.44 m Physical Exam: General: alert, healthy, and no distress Heart: regular rate & rhythm, no murmur, and no gallops Lungs: chest symmetric with normal AP diameter, no chest deformities noted, no chest wall tenderness, lungs clear to auscultation Abdomen: abdomen soft, non-tender, normal bowel sounds, and no masses or organomegaly Extremities: mild swelling in her ankles. ASSESSMENT/PLAN: Other specified hypothyroidism (Primary) - TSH WITH FREE T4 IF INDICATED; Future; Expected date: 04/13/2024 Asthma with severity to be determined - Albuterol Sulfate HFA 108 (90 Base) MCG/ACT Inhalation Aerosol Solution; USE 2 INHALATIONS FOUR TIMES A DAY Anxiety - LORazepam 0.5 MG Oral Tablet (Ativan); Take 1 Tablet by mouth 3 times a day as needed for Anxiety. Body mass index (BMI) of 45.0 to 49.9 in adult (HCC) HTN, goal below 140/90 - BASIC METABOLIC PANEL; Future; Expected date: 04/13/2024 - HEPATIC FUNCTION PANEL; Future; Expected date: 04/13/2024 Family history of diabetes mellitus - HEMOGLOBIN A1C; Future; Expected date: 04/13/2024 RANKIN (dyspnea on exertion) - EKG; Future; Expected date: 04/13/2024 - EKG Racing heart beat - D-DIMER; Future; Expected date: 04/13/2024 - EKG; Future; Expected date: 04/13/2024 - EKG Could be weight related. EKG showed normal sinus. Check zio and will get echo c ompleted Jennifer Khoury DO documented in this encounter Procedure Notes * Angel Borjas DO - 04/13/2024 9:04 AM EDTAssociated Order(s): EKG REASON FOR STUDY: CONCLUSIONS: Normal sinus rhythm Normal ECG When compared with ECG of 30-Jul-2019 13:25, No significant change was found Ventricular Rate: 82 Atrial Rate: 82 TN Interval: 164 QRS Duration: 84 QT/QTc: 372/434 ms P-R-T [place]: 10 : 49 : 12 degrees documented in this encounter Nursing Notes * Марина Reaves LPN - 04/13/2024 8:30 AM EDT The patient has been properly identified by confirmation of name and date of . Chief Complaint Patient presents with Follow Up 6 month return Would like to discuss her Effexor Would like to discuss heart documented in this encounter Plan of Treatment Upcoming Encounters Date Type Department Care Team (Late st Contact Info) Description 06/12/2024 2:00 PM EDT Cardiac Studies Cardiac Studies, [place] [address] [place] [address] 07/29/2024 11:30 AM EDT Office Visit Gynecology/Oncology, [place] [address] [place] [address] Alissa Martinez PA-C [address] [place] [address] 10/26/2024 12:10 PM EST Office Visit [facility] [address] [place] [address] Jennifer Khoury DO [address] [place] [address] Pending Results Name Type Priority Associated Diagnoses Date /Time HEMOGLOBIN A1C Lab Routine Family history of [...] Racing heart beat 04/13/2024 9:22 AM EDT Scheduled Orders Name Type Priority Associated Diagnoses Orde r Schedule HEMOGLOBIN A1C Lab Routine Family history of diabetes mellitus Expected: 04/13/2024 (Approximate), Expires: 04/13/2025 TSH WITH FREE T4 IF INDICATED Lab Routine Other specified hypothyroidism Expected: 04/13/2024 (Approximate), Expires: 04/13/2025 BASIC METABOLIC PANEL Lab Routine HTN, goal below 140/90 Expected: 04/13/2024 (Approximate), Expires: 04/13/2025 HEPATIC FUNCTION PANEL Lab Routine HTN, goal below 140/90 Expected: 04/13/2024 (Approximate), Expires: 04/13/2025 D-DIMER Lab Routine Racing heart beat Expected: 04/13/2024 (Approximate), Expires: 04/13/2025 EXTERNAL EKG 2 TO 7 DAYS Holter Routine RANKIN (dyspnea on exertion) Racing heart beat Expected: 04/14/2024 (Approximate), Expires: 04/13/2025 ECHO, COMPLETE (2D), TRANS-THORACIC Echocardiology Routine RANKIN (dyspnea on exertion) Racing heart beat Expected: 04/13/2024 (Approximate), Expires: 04/13/2025 Scheduled Procedures Name Priority Associated Diagnoses Date/Ti [...] Not on filedocumented as of this encounter Procedures Procedure Name Priority Date/Time Associated Diagnosis Comments EKG Routine 04/13/2024 9:04 AM EDT RANKIN (dyspnea on exertion) Racing heart beat documented in this encounter Results * EKG (04/13/2024 9:04 AM EDT) 04/13/2024 9:04 AM EDT Narrative Procedure Note Angel Borjas, DO - 04/13/2024 9:04 AM EDT REASON FOR STUDY: CONCLUSIONS: Normal sinus rhythm Normal ECG When compared with ECG of 30-Jul-2019 13:25, No significant change was found Ventricular Rate: 82 Atrial Rate: 82 TN Interval: 164 QRS Duration: 84 QT/QTc: 372/434 ms P-R-T [place]: 10 : 49 : 12 degrees Jennifer Khoury DO EKG [facility] documented in this encounter Visit Diagnoses Diagnosis Other specified hypothyroidism- Primary Asthma with severity to be determined Anxiety Anxiety state, unspecified Body mass index (BMI) of 45.0 to 49.9 in adult (HCC) HTN, goal below 140/90 Unspecified essential hypertension Family history of diabetes mellitus RANKIN (dyspnea on exertion) Other dyspnea and respiratory abnormality Racing heart beat Tachycardia, unspecified documented in this encounter Advance Directives * Full Code (Latest Code Status on File) Date Activated Date Inactivated Comments 08/24/2019 11:29 AM 08/24/2019 6:26 PM This orde r reflects the patients wishes and were consensually agreed upon. Care Teams Chocolate Dipper Relationship Specialty Start Date End Date Jennifer Khoury DO [address] [place] [address] PCP - General Family Medicine 05/13/14 documented as of this encounter
--- OUTSIDE RECORDS SUMMARY | 2024-06-09 07:27 | External Medical Summary | Summary of Care ---
Author Name Unknown Organization [facility] Address [address] [place] [address] Phone [phone] Care Team Providers Care Time Clock Mechanic Name Role Phone Jennifer Khoury DO Primary Care Provider [phone] Reason for Visit * Reason Comments Outpatient Testing Encounter Details Date Type Department Care Team (Late st Contact Info) Description 04/13/2024 9:20 AM EDT Laboratory Laboratory, [place] [address] [place] [address] [facility] [address] [place] [address] Encounter for long-term (current) use of medications; [employer] Other*[id number]; Family history of diabetes mellitus; Other specified [...] Patient not taking.Reported on 04/13/2024 Nystatin-Triamcinol one 356694-9.1 UNIT/GM-% External Cream (Mycolog)Indication s:Cutaneous candidiasis APPLY [...] PPD 06/12/2017 Pneumococcal Conjugate Vacci ne, 20-valent ([id number]) 10/10/2022 Pneumococcal Polysaccharide PPV23 (Pneumovax) 03/21/2016 Seasonal [...] 2:00 PM EDT Cardiac Studies Cardiac Studies, [place] [address] [place] [address] 07/29/2024 11:30 AM EDT Office Visit Gynecology/Oncology, [place] [address] [place] [address] Alissa Martinez PA-C [address] [place] [address] 10/26/2024 12:10 PM EST Office Visit Family [facility] [address] [place] [address] Jennifer Khoury DO [address] [place] [address] Pending Results Name Type Priority Associated Diagnoses Date /Time LIPID PANEL WITH DIRECT LDL IF TG IS HIGH Lab Routine Encounter for long-term (current) use of medications 04/13/2024 9:22 AM EDT MYCODE INITIAL ADULT Lab Routine [employer] Other*[id number] 04/13/2024 9:22 AM EDT HEMOGLOBIN A1C Lab [...] MYCODE INITIAL ADULT-PINK Lab Routine [employer] Other*[id number] 04/13/2024 9:22 AM EDT MYCODE SST1 Lab Routine [employer] Other*[id number] 04/13/2024 9:22 AM EDT MYCODE SST2 Lab Routine [employer] Other*[id number] 04/13/2024 9:22 AM EDT Scheduled Procedures Name [...] for long-term (current) use of other medications [employer] Research Other*[id number] Family history of diabetes mellitus Other specified hypothyroidism HTN, goal below 140/90 Unspecified essential hypertension Racing heart beat Tachycardia, unspecified documented in this encounter Advance Directives * Full Code (Latest Code Status on File) Date Activated Date Inactivated Comments 08/24/2019 11:29 AM 08/24/2019 6:26 PM This orde r reflects the patients wishes and were consensually agreed upon. Care Teams Time Clock Mechanic Relationship Specialty Start Date End Date Jennifer Khoury DO [address] [facility] [place] [address] PCP - General Family Medicine 05/13/14 documented as of this encounter
--- OUTSIDE RECORDS SUMMARY | 2024-06-09 07:28 | External Medical Summary ---
Author Name Unknown Address Unknown Organization [id number]:[facility] [place] [address] [place] [address] Laboratory Report Ordering Provider Test Date Status DIANNA LEIVA 04/13/2024 09:22:36 Final Observation Date Value Abnormality Reference (Units ) Status TSH 04/13/2024 09:22:36 0.84 0.27-4.20 (uIU/mL) Final Performing Location [facility] [place] [address] [facility] [address]
--- OUTSIDE RECORDS SUMMARY | 2024-06-09 07:28 | External Medical Summary ---
Author Name Unknown Address Unknown Organization [id number][place] [place] [address] [place] [address] Laboratory Report Ordering Provider Test Date Status JOSE ORTIZ 04/13/2024 09:22:36 Final Observation Date Value Abnormality Reference (Units ) Status Runner SPECIMEN-LAV 04/13/2024 09:22:36 Freezing of extracted DNA, whole blood and/or serum. Final Performing Location [facility] [place] [address] [place] [address]
--- OUTSIDE RECORDS SUMMARY | 2024-06-09 07:28 | External Medical Summary | Summary of Care ---
Author Name Unknown Organization [facility] Address [address] [facility] [address] Phone [phone] Care Team Providers Care Skein Winding Operator Name Role Phone Jennifer Khoury DO Primary Care Provider [phone] Encounter Details Date Type Department Care Team (Late st Contact Info) Description 02/14/2024 Orders Only PATIENT PORTAL DO NOT DELETE THIS DEPT USED BY [place] [id number] Allergies Active Allergy Reactions Criticality Noted Date Comments Nickel Rash 08/15/2017 documented as of this encounter (statuses as of 02/14/2024) Medications Medication Sig Dispensed Refills Start Date End Date Status hyoscyamine (LEVSIN) 0.125 MG SL tablet Take 1 Tab by mouth every 4 hours as needed for Cramping. Abdominal pain 40 Tab 2 07/19/2017 Active Naproxen Sodium 220 MG Oral Tablet Take 2 Tablets by mouth 2 times a day with morning and evening meals. 0 Active ondansetron (ZOFRAN) 8 MG TabletIndications:N ausea Take 1 Tab by mouth every 8 hours as needed for Nausea. 90 Tab 0 08/11/2018 Active Loratadine 10 MG Oral Capsule Take 1 Capsule by mouth in the morning. 0 Active Azelastine HCl (ASTELIN) 0.1 % nasal sprayIndications:Ot algia,Dysfunction of eustachian tube,Chronic rhinitis Administer 2 Sprays into each nostril 2 times a day. 3 mL 1 05/06/2020 Active Albuterol Sulfate HFA 108 (90 Base) MCG/ACT Inhalation Aerosol SolutionIndications :Asthma with severity to be determined USE 2 INHALATIONS FOUR TIMES A DAY 25.5 g 3 02/28/2021 Active Fexofenadine HCl 180 MG Oral Tablet Take 1 Tablet by mouth in the morning. 0 03/22/2021 Active LORazepam 0.5 MG Oral Tablet (Ativan)Indications :Anxiety Take by mouth 1 Tablet as needed in the morning AND 1 Tablet as needed at noon AND 1 Tablet as needed in the evening for Anxiety. 90 Tablet 0 01/26/2022 Active Cetirizine HCl 10 MG Oral Tablet Chewable Take 1 Tablet by mouth in the morning. 0 Active Fluticasone Propionate 50 MCG/ACT Nasal Suspension (Flonase) USE 2 SPRAYS IN EACH NOSTRIL DAILY 48 g 3 11/09/2022 Active Nystatin-Triamcinol one 684246-8.1 UNIT/GM-% External Cream (Mycolog)Indication s:Cutaneous candidiasis APPLY TOPICALLY TO AFFECTED AREA TWICE A DAY FOR 2 WEEKS 30 g 1 11/09/2022 Active Venlafaxine HCl ER 37.5 MG Oral Capsule Extended Release 24 Hour (Effexor XR) Take 1 Capsule by mouth in the morning. 90 Capsule 3 01/15/2023 Active Fluticasone-Salmete rol 100-50 MCG/ACT Inhalation Aerosol Powder [...] CUT, CRUSH OR CHEW) 90 Capsule 0 02/11/2024 Active Montelukast Sodium 10 MG Oral Tablet (Singulair)Indicati ons:Allergic rhinitis TAKE 1 TABLET DAILY 90 Tablet 3 02/11/2024 Active documented as of this encounter (statuses as of 02/14/2024) Active Problems Problem Noted Date Diagnosed Date Body mass index (BMI) of 45.0 to 49.9 in adult 1 12/12/2022 Body mass index (BMI) of 40.0 to 44.9 in adult 0 05/06/2023 Overview: Per Obesity protocol - Per Obesity protocol - Per Obesity Taxonomy Endometrial cancer 09/07/2019 Cancer Staging:Clinical stage from 08/18/2019:FIGO Stage IA(cT1a, cN0, cM0) - Signed by Navid East MD on 09/29/2019 HTN, goal below 140/90 01/04/2015 Chronic rhinitis [...] as of this encounter (statuses as of 02/14/2024) Resolved Problems Problem Noted Date Diagnosed Date Resolved Date Body mass index (BMI) of 45. 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 [address] [place] [phone] Jennifer Khoury DO [address] [place] [address] 07/29/2024 11:30 AM EDT Office Visit Gynecology/Oncology, [place] [address], [place] [phone] Alissa Martinez PA-C [address] [place] [address] Scheduled Procedures Name Priority Associated Diagnoses Date/Ti [...] filedocumented as of this encounter Advance Directives Latest Code Status on File Code Status Date Activated Date Inactivated Comments Full Code 08/24/2019 11:29 AM 08/24/2019 6:26 PM Th is order reflects the patients wishes and were consensually agreed upon. Care Teams Skein Winding Operator Relationship Specialty Start Date End Date Jennifer Khoury DO [address] [place] [facility] [address] PCP - General Family Medicine 05/13/14 documented as of this encounter
--- OUTSIDE RECORDS SUMMARY | 2024-06-09 07:28 | External Medical Summary ---
Author Name Unknown Address Unknown Organization K01:[facility] [place] [address] [facility] [place] [address] Laboratory Report Ordering Provider Test Date Status CALIDIANNA 04/13/2024 09:22:36 Final Rheumatoid factor at a level above 50 IU/mL may lead to an overestimation of the D-dimer level. A normal D-dimer result (<0.50 ug/mL FEU) has a negative predictive value of approximately 95% for the exclusion of acute pulmonary embolism (PE) or deep vein thrombosis when there is low or moderate pretest PE probability. Increased D-dimer values are abnormal but do not indicate a specific disease state and the D-dimer increase does not definitively correlate with clinical severity of disease. Observation Date Value Abnormality Reference (Units ) Status Fibrin D-dimer FEU [Mass/volume] in Platelet poor plasma by Immunoassay 04/13/2024 09:22:36 <0.27 <0.50 (ug/mL FEU) Final Performing Location [facility] [place] [address] [place] [address]
--- OUTSIDE RECORDS SUMMARY | 2024-06-09 07:28 | External Medical Summary ---
Author Name Unknown Address Unknown Organization [id number]:[facility] [place] [address] [address] Laboratory Report Ordering Provider Test Date Status JOSE ORTIZ 04/13/2024 09:22:36 Final Observation Date Value Abnormality Reference (Units ) Status MYCODE SPECIMEN-SST 04/13/2024 09:22:36 Freezing of extracted DNA, whole blood and/or serum. Final Performing Location [facility] [place] - [address] [place] [address]
--- OUTSIDE RECORDS SUMMARY | 2024-06-09 07:28 | External Medical Summary ---
Author Name Unknown Address Unknown Organization K01:[facility] [place] [address] [facility] [address] Laboratory Report Ordering Provider Test Date Status DIANNA LEIVA 04/13/2024 09:22:36 Final Observation Date Value Abnormality Reference (Units ) Status HbA1C 04/13/2024 09:22:36 5.8 Above high normal 4. 0-5.6 (%) Final The use of HbA1c to monitor glycemic status is based on normal hemoglobin and HbA composition. This test should not be used in patients with abnormal hemoglobin that affects the half life of the red blood cell or the in vivo glycation rates. Glucose, estimated average 04/13/2024 09:22:36 120 <126 (mg/dL) Final Performing Location [facility] [place] [address] [facility] [address]
--- OUTSIDE RECORDS SUMMARY | 2024-06-09 07:28 | External Medical Summary | Summary of Care ---
Author Name Unknown Organization [facility] Address [address] [place] [address] Phone [phone] Care Team Providers Care Subcontract Manager Name Role Phone Cali Bustamante DO Primary Care Provider [phone] Reason for Visit * Reason Comments eRx-Medication Refill Encounter Details Date Type Department Care Team (Late st Contact Info) Description 02/09/2024 Refill [facility] [address] [place] [address] Cali Bustamante DO [address] [place] [address] Encounter for long-term (current) use of medications*; Allergic rhinitis Allergies Active Allergy Reactions Criticality Noted Date Comments Nickel Rash 08/15/2017 documented as of this encounter (statuses as of 02/12/2024) Medications Medication Sig Dispensed Refills Start Date End Date Status hyoscyamine (LEVSIN) 0.125 MG SL tablet Take 1 Tab by mouth every 4 hours as needed for Cramping. Abdominal pain 40 Tab 2 7 Active Naproxen Sodium 220 MG Oral Tablet Take 2 Tablets by mouth 2 times a day with morning and evening meals. 0 Active ondansetron (ZOFRAN) 8 MG TabletIndications :Nausea Take 1 Tab by mouth every 8 hours as needed for Nausea. 90 Tab 0 8 Active Loratadine 10 MG Oral Capsule Take 1 Capsule by mouth in the morning. 0 Active Azelastine HCl (ASTELIN) 0.1 % nasal sprayIndications: Otalgia,Dysfuncti on of eustachian tube,Chronic rhinitis Administer 2 Sprays into each nostril 2 times a day. 3 mL 1 0 Active Albuterol Sulfate HFA 108 (90 Base) MCG/ACT Inhalation Aerosol SolutionIndicatio ns:Asthma with severity to be determined USE 2 INHALATIONS FOUR TIMES A DAY 25.5 g 3 1 Active Fexofenadine HCl 180 MG Oral Tablet Take 1 Tablet by mouth in the morning. 0 1 Active LORazepam 0.5 MG Oral Tablet (Ativan)Indicatio ns:Anxiety Take by mouth 1 Tablet as needed in the morning AND 1 Tablet as needed at noon AND 1 Tablet as needed in the evening for Anxiety. 90 Tablet 0 2 Active Cetirizine HCl 10 MG Oral Tablet Chewable Take 1 Tablet by mouth in the morning. 0 Active Fluticasone Propionate 50 MCG/ACT Nasal Suspension (Flonase) USE 2 SPRAYS IN EACH NOSTRIL DAILY 48 g 3 3 Active Nystatin-Triamcin olone 944721-6.1 UNIT/GM-% External Cream (Mycolog)Indicati ons:Cutaneous candidiasis APPLY TOPICALLY TO AFFECTED AREA TWICE A DAY FOR 2 WEEKS 30 g 1 3 Active Venlafaxine HCl ER 37.5 MG Oral Capsule Extended Release 24 Hour (Effexor XR) Take 1 Capsule by mouth in the morning. 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 180 Each 3 3 Active Furosemide 20 MG Oral Tablet (Lasix) TAKE 1 TABLET DAILY 90 Tablet 3 3 Active Lisinopril 10 MG Oral Tablet (Prinivil)Indicat [...] CUT, CRUSH OR CHEW) 90 Capsule 0 4 Active Montelukast Sodium 10 MG Oral Tablet (Singulair)Indica tions:Allergic rhinitis TAKE 1 TABLET DAILY 90 Tablet 3 4 Active Montelukast Sodium 10 MG Oral Tablet (Singulair)Indica tions:Allergic rhinitis TAKE 1 TABLET DAILY 90 Tablet 3 3 02/11/20 24 Discontinued Venlafaxine HCl ER 75 MG Oral Capsule Extended Release 24 Hour (Effexor XR) Take 1 Capsule by mouth in the morning. Do not cut, crush or chew. 90 Capsule 1 3 02/11/20 24 Discontinued documented as of this encounter (statuses as of 02/12/2024) Active Problems Problem Noted Date Diagnosed Date [...] as of this encounter (statuses as of 02/12/2024) Resolved Problems Problem Noted Date Diagnosed Date [...] as of this encounter (statuses as of 02/12/2024) Immunizations Name Administration Dates Next Due COVID-19 mRNA, LNP-s, No Pre serve, 2-Dose Series (Moderna) 02/16/2021,01/12/2021 COVID-19, mRNA, LNR-S, Bival ent, PF, 10mcg/0.2 ml (Moderna) 6m to 5 years 08/24/2022,09/27/2021 PPD 06/12/2017 Pneumococcal Conjugate Vacci ne, 20-valent ([id number]) 10/10/2022 Pneumococcal Polysaccharide PPV23 (Pneumovax) 03/21/2016 Seasonal [...] encounter Miscellaneous Notes * Telephone Encounter - Benigno Ryder - 02/12/2024 11:52 PM EDT Received message from [facility] regarding patient needing labs. Patient was notified. Successfully contacted patient and provided [facility] message. * Telephone Encounter - Angel Harrison [facility] - 02/11/2024 10:09 AM EDTSigned Prescriptions: Disp Refills Venlafaxine HCl ER 75 MG Oral Capsule Exte*90 Cap*0 Sig: TAKE 1 CAPSULE IN THE MORNING (DO NOT CUT, CRUSH OR CHEW)Authorizing Provider: CALI BUSTAMANTE User: ANGEL ACEVEDO Montelukast Sodium 10 MG Oral Tablet (Sing*90 Tab*3 Sig: TAKE 1 TABLET DAILYAuthorizing Provider: CALI BUSTAMANTE User: ANGEL ACEVEDO * Telephone Encounter - Angel Harrison [facility] - 02/11/2024 10:07 AM EDT Provided 90 days supply with 0 refill(s). Per refill protocol patient should have Lipid panel on file within past year. Reviewed AMP report, Care Gaps/Health Maintenance, medications list, and for any routine labs typically ordered for this patient. Lab orders placed. Please contact patient to advise of labs ordered for blood draw. Fasting is not required. Advise toobtain labs before requesting the next refill. Thank You, Angel Acevedo [facility] Clinical Pharmacist Centralized Clinical Pharmacy Services (CCPS) (formerly Telepharmacy) 02/11/2024, 10:07 AM * Telephone Encounter - Angel Harrison [facility] - 02/11/2024 10:05 AM EDT Pending Prescriptions: Disp Refills Venlafaxine HCl ER 75 MG Oral Capsule Ext*90 Cap*3 Sig: TAKE 1 CAPSULE IN THE MORNING (DO NOT CUT, CRUSH OR CHEW) Montelukast Sodium 10 MG Oral Tablet (Sin*90 Tab*3 Sig: TAKE 1 TABLET DAILY Last Visit: 10/11/2023 (in office), Visit date not found (telemedicine) Next Visit: 04/13/2024 If no future appointments scheduled, and last appointment is greater than a year ago, please schedule patient for a follow-up appointment Last date the medication was ordered: 08/21/23, 12/03/22 Pharmacy: [facility] Is this request for a controlled substance? No Urine Drug Screen:No results found for this or any previous visit. Patient Phone Numbers Labs: Lab Results Component Value Date/Time CREAT 0.9 10/11/2023 10:15 AM CREAT 0.9 07/30/2019 12:38 PM POTASSIUM 4.8 10/11/2023 10:15 AM POTASSIUM 4.8 07/30/2019 12:38 PM TSH 0.28 10/11/2023 10:15 AM TSH 0.49 11/30/2019 09:31 AM LDLCALC 118 01/22/2023 07:35 AM LDLCALC 128 04/22/2019 09:06 AM LDLDIRECT NOT APPLICABLE 05/07/2012 12:12 PM ALT 22 09/23/2017 01:47 PM documented in this encounter Plan of Treatment Upcoming Encounters Date Type Department Care Team (Late st Contact Info) Description 04/13/2024 8:30 AM EDT Office Visit [address] [address] Cali Bustamante, DO [address] [place] [address] 07/29/2024 11:30 AM EDT Office Visit Gynecology/Oncology, [place] [address] [place] [address] Alissa Martinez PA-C [address] [place] [address] Scheduled Orders Name Type Priority Associated Diagnoses Orde r Schedule LIPID PANEL WITH DIRECT LDL IF TG IS HIGH Lab Routine Encounter for long-term (current) use of medications Expected: 02/11/2024 (Approximate), Expires: 02/10/2025 Scheduled Procedures Name Priority Associated Diagnoses Date/Ti [...] Diagnosis Encounter for long-term (current) use of medications- Primary Encounter for long-term (current) use of other medications Allergic rhinitis Allergic rhinitis, cause unspecified documented in this encounter Advance Directives Latest Code Status on File Code Status Date Activated Date Inactivated Comments Full Code 08/24/2019 11:29 AM 08/24/2019 6:26 PM Th is order reflects the patients wishes and were consensually agreed upon. Care Teams Subcontract Manager Relationship Specialty Start Date End Date Cali Bustamante DO [address] [place] [address] PCP - General Family Medicine 05/13/14 documented as of this encounter
--- OUTSIDE RECORDS SUMMARY | 2024-06-09 07:28 | External Medical Summary | Summary of Care ---
Author Name Unknown Organization [facility] Address [address] [place] [address] Phone [phone] Care Team Providers Care Grinder Set Up Operator Jig Name Role Phone Jennifer Khoury DO Primary Care Provider [phone] Reason for Visit * Reason Comments Outpatient Testing Encounter Details Date Type Department Care Team (Late st Contact Info) Description 04/13/2024 9:20 AM EDT Laboratory Laboratory, [place] [address] [place] [address] [facility] [address] [place] [address] Encounter for long-term (current) use of medications; [employer] Other*[id number]; Family history of diabetes mellitus; Other specified [...] Patient not taking.Reported on 04/13/2024 Nystatin-Triamcinol one 676485-4.1 UNIT/GM-% External Cream (Mycolog)Indication s:Cutaneous candidiasis APPLY [...] PPD 06/12/2017 Pneumococcal Conjugate Vacci ne, 20-valent ([id number]) 10/10/2022 Pneumococcal Polysaccharide PPV23 (Pneumovax) 03/21/2016 Seasonal [...] 2:00 PM EDT Cardiac Studies Cardiac Studies, [place] [address] [place] [address] 07/29/2024 11:30 AM EDT Office Visit Gynecology/Oncology, [place] [address] [place] [address] Alissa Martinez PA-C [address] [place] [address] 10/26/2024 12:10 PM EST Office Visit Family [facility] [address] [place] [phone] Jennifer Khoury DO [address] [place] [address] Pending Results Name Type Priority Associated Diagnoses Date /Time LIPID PANEL WITH DIRECT LDL IF TG IS HIGH Lab Routine Encounter for long-term (current) use of medications 04/13/2024 9:22 AM EDT MYCODE INITIAL ADULT Lab Routine [employer] Other*[id number] 04/13/2024 9:22 AM EDT HEMOGLOBIN A1C Lab [...] MYCODE INITIAL ADULT-PINK Lab Routine [employer] Other*[id number] 04/13/2024 9:22 AM EDT MYCODE SST1 Lab Routine [employer] Other*[id number] 04/13/2024 9:22 AM EDT MYCODE SST2 Lab Routine [employer] Other*[id number] 04/13/2024 9:22 AM EDT Scheduled Procedures Name [...] for long-term (current) use of other medications [employer] Other*[id number] Family history of diabetes mellitus Other specified hypothyroidism HTN, goal below 140/90 Unspecified essential hypertension Racing heart beat Tachycardia, unspecified documented in this encounter Advance Directives * Full Code (Latest Code Status on File) Date Activated Date Inactivated Comments 08/24/2019 11:29 AM 08/24/2019 6:26 PM This orde r reflects the patients wishes and were consensually agreed upon. Care Teams Grinder Set Up Operator Jig Relationship Specialty Start Date End Date Jennifer Khoury DO [address] [facility] [place] [address] PCP - General Family Medicine 05/13/14 documented as of this encounter
--- OUTSIDE RECORDS SUMMARY | 2024-06-09 07:28 | External Medical Summary ---
Author Name Unknown Address Unknown Organization K01:[facility] [place] [facility] [place] [address] Laboratory Report Ordering Provider Test Date Status JOSE ORTIZ 04/13/2024 09:22:36 Final Observation Date Value Abnormality Reference (Units ) Status MYCODE SPECIMEN-SST 04/13/2024 09:22:36 Freezing of extracted DNA, whole blood and/or serum. Final Performing Location [facility] [place] [address] [place] [address]
--- OUTSIDE RECORDS SUMMARY | 2024-06-09 07:28 | External Medical Summary | Summary of Care ---
Author Name Unknown Organization [facility] Address [address] [place] [address] Phone [phone] Care Team Providers Care Business Mgr Name Role Phone Jennifer Khoury DO Primary Care Provider [phone] Encounter Details Date Type Department Care Team (Late st Contact Info) Description 02/24/2024 Orders Only Outcomes Research Department [address], [place] [id number] Ktaina Rosa CHRA [employer] Other*[id number] Allergies Active Allergy Reactions Criticality Noted Date Comments Nickel Rash 08/15/2017 documented as of this encounter (statuses as of 02/24/2024) Medications Medication Sig Dispensed Refills Start Date [...] 48 g 3 11/09/2022 Active Nystatin-Triamcinol one 305434-1.1 UNIT/GM-% External Cream (Mycolog)Indication s:Cutaneous candidiasis APPLY [...] as of this encounter (statuses as of 02/24/2024) Active Problems Problem Noted Date Diagnosed Date [...] as of this encounter (statuses as of 02/24/2024) Resolved Problems Problem Noted Date Diagnosed Date [...] as of this encounter (statuses as of 02/24/2024) Immunizations Name Administration Dates Next Due COVID-19 mRNA, LNP-s, No Pre serve, 2-Dose Series (Moderna) 02/16/2021,01/12/2021 COVID-19, mRNA, LNR-S, Bival ent, PF, 10mcg/0.2 ml (Moderna) 6m to 5 years 08/24/2022,09/27/2021 PPD 06/12/2017 Pneumococcal Conjugate Vacci ne, 20-valent ([id number]) 10/10/2022 Pneumococcal Polysaccharide PPV23 (Pneumovax) 03/21/2016 Seasonal [...] Description 04/13/2024 8:30 AM EDT Office Visit [facility] [address] [place] [facility] [place] [id number] Jennifer [facility] DO [address] [facility] [address] 07/29/2024 11:30 AM EDT Office Visit Gynecology/Oncology, [address] [address] Alissa Calabrese PA-C [address] [place] [address] Scheduled Orders Name Type Priority Associated Diagnoses Orde r Schedule MYCODE SUBSEQUENT ADULT Lab Routine [employer] Other*[id number] Every 6 Months for 2 Occurrences starting 02/24/2024 until 03/15/2025 Scheduled Procedures Name Priority Associated Diagnoses Date/Ti [...] this encounter Visit Diagnoses Diagnosis [employer] Other*[id number] documented in this encounter Advance Directives Latest Code Status on File Code Status Date Activated Date Inactivated Comments Full Code 08/24/2019 11:29 AM 08/24/2019 6:26 PM Th is order reflects the patients wishes and were consensually agreed upon. Care Teams Business Mgr Relationship Specialty Start Date End Date Jennifer Khoury DO [address] [place] [address] PCP - General Family Medicine 05/13/14 documented as of this encounter
--- OUTSIDE RECORDS SUMMARY | 2024-06-09 07:28 | External Medical Summary | Summary of Care ---
Author Name Unknown Organization [facility] Address [address] [place] [address] Phone [phone] Care Team Providers Care Tumble Tailstock Turret Lathe Operator Name Role Phone Cali Bustamante DO Primary Care Provider Reason for Visit * Reason Comments eRx-Medication Refill Encounter Details Date Type Department Care Team (Late st Contact Info) Description 02/09/2024 Refill [facility] [address] [place] [address] Cali Bustamante DO [address] [place] [address] Encounter for long-term (current) use of medications*; Allergic rhinitis Allergies Active Allergy Reactions Criticality Noted Date Comments Nickel Rash 08/15/2017 documented as of this encounter (statuses as of 02/11/2024) Medications Medication Sig Dispensed Refills Start Date [...] 48 g 3 3 Active Nystatin-Triamcin olone 019632-1.1 UNIT/GM-% External Cream (Mycolog)Indicati ons:Cutaneous candidiasis APPLY [...] as of this encounter (statuses as of 02/11/2024) Active Problems Problem Noted Date Diagnosed Date [...] as of this encounter (statuses as of 02/11/2024) Resolved Problems Problem Noted Date Diagnosed Date [...] as of this encounter (statuses as of 02/11/2024) Immunizations Name Administration Dates Next Due COVID-19 mRNA, LNP-s, No Pre serve, 2-Dose Series (Moderna) 02/16/2021,01/12/2021 COVID-19, mRNA, LNR-S, Bival ent, PF, 10mcg/0.2 ml (Moderna) 6m to 5 years 08/24/2022,09/27/2021 PPD 06/12/2017 Pneumococcal Conjugate Vacci ne, 20-valent ([id number]) 10/10/2022 Pneumococcal Polysaccharide PPV23 (Pneumovax) 03/21/2016 Seasonal [...] Notes * Telephone Encounter - Angel Harrison [facility] - 02/11/2024 10:09 AM EDTSigned Prescriptions: Disp Refills Venlafaxine HCl ER 75 MG Oral Capsule Exte*90 Cap*0 Sig: TAKE 1 CAPSULE IN THE MORNING (DO NOT CUT, CRUSH OR CHEW)Authorizing Provider: CALI BUSTAMANTE User: ANGEL ACEVEDO Montelukast Sodium 10 MG Oral Tablet (Sing*90 Tab*3 Sig: TAKE 1 TABLET DAILYAuthorizing Provider: CALI BUSTAMANTE User: ANGEL ACEVEDO * Telephone Encounter - Angel Harrison [facility] - 02/11/2024 10:07 AM EDT Provided 90 [...] the next refill. Thank You, Angel Acevedo [facility] Clinical Pharmacist Centralized Clinical Pharmacy Services (CCPS) (formerly Telepharmacy) 02/11/2024, 10:07 AM * Telephone Encounter - Angel Harrison [facility] - 02/11/2024 10:05 AM EDT Pending Prescriptions: [...] the medication was ordered: 08/21/23, 12/03/22 Pharmacy: [facility] [address] Is this request for a controlled [...] Description 04/13/2024 8:30 AM EDT Office Visit [facility] [address] [place] [phone] Cali Bustamante DO [address] [place] [address] 07/29/2024 11:30 AM EDT Office Visit Gynecology/Oncology, [place] [address] [place] [address] Alissa Martinez PA-C [address] [place] [address] Scheduled Orders Name Type Priority Associated Diagnoses [...] and were consensually agreed upon. Care Teams Tumble Tailstock Turret Lathe Operator Relationship Specialty Start Date End Date Cali Bustamante DO [address] [place] [address] PCP - General Family Medicine 05/13/14 documented as of this encounter
--- OUTSIDE RECORDS SUMMARY | 2024-06-09 07:28 | External Medical Summary | Summary of Care ---
Author Name Unknown Organization [facility] Address [address] [place] [address] Phone [phone] Care Team Providers Care Molder Inflated Ball Name Role Phone Jennifer Khoury DO Primary Care Provider [phone] Reason for Visit * Reason Onset Date Comments Mycode Lab Reorder 03/12/2024 Encounter Details Date Type Department Care Team (Late st Contact Info) Description 03/12/2024 Orders Only Outcomes Research Department [address] [place] [address] Melvin Deshpande CHRA [employer] Other*[id number]* Allergies Active Allergy Reactions Criticality Noted Date Comments Nickel Rash 08/15/2017 documented as of this encounter (statuses as of 03/12/2024) Medications Medication Sig Dispensed Refills Start Date [...] SPRAYS IN EACH NOSTRIL DAILY 48 g 11/09/2022 Active Nystatin-Triamcinol one 185008-4.1 UNIT/GM-% External Cream (Mycolog)Indication s:Cutaneous candidiasis APPLY TOPICALLY TO AFFECTED AREA TWICE A DAY FOR 2 WEEKS 30 g 11/09/2022 Active Venlafaxine HCl ER 37.5 MG [...] as of this encounter (statuses as of 03/12/2024) Active Problems Problem Noted Date Diagnosed Date [...] as of this encounter (statuses as of 03/12/2024) Resolved Problems Problem Noted Date Diagnosed Date [...] as of this encounter (statuses as of 03/12/2024) Immunizations Name Administration Dates Next Due COVID-19 mRNA, LNP-s, No Pre serve, 2-Dose Series (Moderna) 02/16/2021,01/12/2021 COVID-19, mRNA, LNR-S, Bival ent, PF, 10mcg/0.2 ml (Moderna) 6m to 5 years 08/24/2022,09/27/2021 PPD 06/12/2017 Pneumococcal Conjugate Vacci ne, 20-valent ([id number]) 10/10/2022 Pneumococcal Polysaccharide PPV23 (Pneumovax) 03/21/2016 Seasonal [...] as of this encounter Progress Notes * Melvin Deshpande CHRA - 03/12/2024 1:37 PM EDT MyCode lab reordered. documented in this encounter Plan of Treatment Upcoming Encounters Date Type Department Care Team (Late st Contact Info) Description 04/13/2024 8:30 AM EDT Office Visit [address] [address] Jennifer Khoury, DO [address] [place] [address] 07/29/2024 11:30 AM EDT Office Visit Gynecology/Oncology, [place] [address] [place] [address] Alissa Martinez PA-C [address] [place] [address] Scheduled Orders Name Type Priority Associated Diagnoses Orde r Schedule MYCODE INITIAL ADULT Lab Routine [employer] Other*[id number] Expected: 03/12/2024 (Approximate), Expires: 04/01/2025 Scheduled Procedures Name Priority Associated Diagnoses Date/Ti [...] this encounter Visit Diagnoses Diagnosis [employer] Other*[id number]- Primary documented in this encounter Advance Directives Latest Code Status on File Code Status Date Activated Date Inactivated Comments Full Code 08/24/2019 11:29 AM 08/24/2019 6:26 PM Th is order reflects the patients wishes and were consensually agreed upon. Care Teams Molder Inflated Ball Relationship Specialty Start Date End Date Jennifer Khoury DO [address] [place] [facility] [place] [address] PCP - General Family Medicine 05/13/14 documented as of this encounter
--- OUTSIDE RECORDS SUMMARY | 2024-06-09 07:28 | External Medical Summary ---
Author Name Unknown Address Unknown Organization K01:[facility] [place] [address] [facility] [place] [address] Laboratory Report Ordering Provider Test Date Status GRHAAM DAVIES 04/13/2024 09:22:36 Final Observation Date Value Abnormality Reference (Units ) Status Triglyceride 04/13/2024 09:22:36 191 Above high normal <=174 (mg/dL) Final Triglyceride Reference Range s (mg/dL):
<150 Acceptable
150-174 Borderline high
175-499 High
>=500 Very high Cholesterol 04/13/2024 09:22:36 259 Above high normal <200 (mg/dL) Final Total Cholesterol Reference Ranges (mg/dL):
<200 Desirable
200-239 Borderline high
>=240 High HDL 04/13/2024 09:22:36 46 Below low normal >49 (mg/dL) Final HDL Cholesterol Reference Ra nges (mg/dL):
>=60 High (Desirable)
<50 Low (Undesirable) For Females
<40 Low (Undesirable) For Males NON-HDL CHOLESTEROL 04/13/2024 09:22:36 213 Above high normal <=159 (mg/dL) Final Non-HDL Cholesterol Referenc e Range (mg/dL):
<100 Target level for high risk ASCVD patient
<130 Optimal for general population
130-159 Near optimal for general population
160-189 Borderline High
190-219 High
>=220 Very High LDL, (calculated) 04/13/2024 09:22:36 175 Above high n ormal <=129 (mg/dL) Final LDL Cholesterol Reference Ra nges (mg/dL):
<70 Target level for high risk ASCVD patient
<100 Optimal for general population
100-129 Near optimal for general population
130-159 Borderline high
160-189 High
>=190 Very high Performing Location [facility]ORY [facility] [place] - [address] [facility] [address]
--- OUTSIDE RECORDS SUMMARY | 2024-06-09 07:28 | External Medical Summary ---
Author Name Unknown Address Unknown Organization K01:[facility]ORY [facility] [place] - [address] [place] [address] Laboratory Report Ordering Provider Test Date Status DIANNA LEIVA 04/13/2024 09:22:36 Final Observation Date Value Abnormality Reference (Units ) Status BUN 04/13/2024 09:22:36 17 6-20 (mg/dL) Final Creatinine 04/13/2024 09:22:36 0.9 0.5-1.0 (mg/dL) Final Glomerular filtration rate/1.73 sq M.predicted [Volume Rate/Area] in Serum, Plasma or Blood by Creatinine-based formula (CKD-EPI) 04/13/2024 09:22:36 76 >=60 (mL/min) Final eGFR is calculated based on the CKD-EPI 2020 equation Sodium 04/13/2024 09:22:36 139 135-146 (m mol/L) Final Potassium 04/13/2024 09:22:36 4.5 3.5-5.1 (m mol/L) Final Cl 04/13/2024 09:22:36 102 98-107 (mm ol/L) Final CO2 04/13/2024 09:22:36 27 22-32 (mmo l/L) Final Anion gap 04/13/2024 09:22:36 10 7-15 (mmol /L) Final Glucose 04/13/2024 09:22:36 100 70-120 (mg /dL) Final Calcium 04/13/2024 09:22:36 9.3 8.4-10.2 ( mg/dL) Final Performing Location LABORATORY [facility] [place] - [facility] [place] [address]
--- OUTSIDE RECORDS SUMMARY | 2024-06-09 07:28 | External Medical Summary ---
Author Name Unknown Address Unknown Organization K01:[facility] [place] [address] [place] [address] Laboratory Report Ordering Provider Test Date Status DIANNA LEIVA 04/13/2024 09:22:36 Final Observation Date Value Abnormality Reference (Units ) Status Albumin 04/13/2024 09:22:36 4.2 3.8-5.0 (g/dL) Final AST (Aspartate aminotransferase) 04/13/2024 09:22:36 23 10-35 (U/L) Final Alk Phos 04/13/2024 09:22:36 88 35-130 (U/L) Final ALT (Alanine aminotransferase) 04/13/2024 09:22:36 25 10-35 (U/L) Final Bilirubin, Total 04/13/2024 09:22:36 0.3 <=1.2 (mg/dL) Final Bilirubin, Direct 04/13/2024 09:22:36 <0.2 0.0-0.3 (mg/dL) Final Protein 04/13/2024 09:22:36 6.5 6.0-8.3 (g/dL) Final Performing Location [facility] [place] [address] [place] [address]
--- NOTE | 2024-06-09 07:43 | History & Physical Report ---
Date of Service June 09, 2024 Assessment & Plan (1) Syncope: Plan: 53-year-old female with past medical significant for hypothyroidism, dyslipidemia, prediabetes, allergic rhinitis, hypertension, irritable bowel syndrome, history of esophageal stricture, GERD, obesity, comes with episode of syncope. Patient states she recently started Ozempic finished first week 4 weeks of 0.25 mg dose and about 4 days ago dose was increased to 0.5 mg and since then she is having a lot of nausea and diarrhea. Last night when she was on the commode she passed out and hit her forehead. After waking up she is back to her normal self. No shaking of the body. No biting of tongue. No incontinence. Has mild headache currently. No blurred vision. No runny nose or sore throat or cough. No chest pain or shortness of breath. Has some abdominal discomfort. Micturating okay. Currently resting comfortably and hemodynamic stable. Syncope Having lot of diarrhea IV fluids Will check orthostatics EKG changes Denies any chest pain or shortness of breath Initial troponin negative Will follow serial cardiac enzymes and echo Telemetry Cardiac consult for further recommendation Acute UTI Rocephin Will follow cultures Prediabetes Follow HbA1c levels Hypothyroidism On Synthyroid Follow TSH Hypertension On lisinopril and Lasix Will monitor GERD Omeprazole Obesity Recently started Ozempic Having diarrhea from Ozempic Follow-up with PCP and nutrition DVT prophylaxis SCDs for now Disposition Telemetry Full code. History of Present Illness Chief Complaint: Syncope Primary Care Provider: Jennifer Khoury DO 53-year-old female with past medical significant for hypothyroidism, dyslipidemia, prediabetes, allergic rhinitis, hypertension, irritable bowel syndrome, history of esophageal stricture, GERD, obesity, comes with episode of syncope. Patient states she recently started Ozempic finished first week 4 weeks of 0.25 mg dose and about 4 days ago dose was increased to 0.5 mg and since then she is having a lot of nausea and diarrhea. Last night when she was on the commode she passed out and hit her forehead. After waking up she is back to her normal self. No shaking of the body. No biting of tongue. No incontinence. Has mild headache currently. No blurred vision. No runny nose or sore throat or cough. No chest pain or shortness of breath. Has some abdominal discomfort. Micturating okay. Currently resting comfortably and hemodynamic stable. Past medical history. As mentioned above Past surgical history. . EGD. EGD with trans endoscopic dilatation. Robotic laparoscopic hysterectomy with removal of tubes. Ligation of oviducts. Family history. Maternal cousin had breast cancer. Mother has diabetes. Father had heart attack. Paternal aunt had ovarian cancer. Maternal grandmother had stroke. Brother has dysphagia..Sister has dysphagia. Son has asthma. Allergies Allergy/AdvReac Type Severity Reaction Status Date / Time sumatriptan Allergy Unknown HIVES Verified 04/10/17 10:44 nickel AdvReac Intermediate RASH Verified 04/10/17 10:44 tramadol AdvReac Mild "GETS MEAN" Verified 04/10/17 10:44 Aromatic Oils Allergy Unknown LOTIONS Uncoded 04/10/17 10:44 WITH FRAGRANCE-RASH Home Medications Medication Instructions Recorded Confirmed Type albuterol sulfate 90 mcg/actuation 2 puff inhalation Q4H PRN sob 06/09/24 06/09/24 History aerosol inhaler fluticasone 100 mcg-salmeterol 50 1 inh inhalation BID 06/09/24 06/09/24 History mcg/dose blistr powdr for inhalation (Advair Diskus) furosemide 20 mg tablet 20 mg PO DAILY 06/09/24 06/09/24 History levothyroxine 125 mcg tablet 125 mcg PO DAILY 06/09/24 06/09/24 History lisinopril 10 mg tablet 10 mg PO DAILY 06/09/24 06/09/24 History lorazepam 0.5 mg tablet 0.5 mg PO TID PRN Anxiety 06/09/24 06/09/24 History montelukast 10 mg tablet 10 mg PO DAILY 06/09/24 06/09/24 History omeprazole 20 mg capsule,delayed 20 mg PO DAILY 06/09/24 06/09/24 History release semaglutide 0.25 mg or 0.5 mg (2 0.5 mg subcut WK 06/09/24 06/09/24 History mg/3 mL) subcutaneous pen injector (Ozempic) venlafaxine 75 mg capsule,extended 75 mg PO DAILY 06/09/24 06/09/24 History release 24 hr Past Med/Surg History Problem List (Updated 06/09/24 @ 04:30 by Katina M Brice, PA-C) Abdominal pain, acute (Acute) Abnormal ECG (Acute) Head injury (Acute) Acute UTI (Acute) Syncope (Acute) Social History Smoking Status: Never smoker Preferred Language: Micronesian Feels Safe at Home: Yes Review of Systems Review of Systems: All systems reviewed & are unremarkable except as noted in HPI & below Physical Exam Physical Exam: General- Not in distress Head- Bruise seen on forehead Eyes- PERRL. ENT- oropharynx clear Neck- supple, no JVD. Lungs- clear to auscultation no wheezing or crackles Heart- regular rate and rhythm; no murmur, no gallop. Abdomen- normal bowel sounds, soft, nontender, no distension Extremities- no pretibial edema, no erythema seen Neuro- alert, oriented PERRL, no facial palsy; no dysarthria; moves extremities Results & Data Results & Data Vital Signs (Past 12 Hours) Vital Signs Temp Pulse Pulse Resp BP BP Pulse Ox 06/09/24 07:10 75 06/09/24 06:00 75 20 163/93 H 97 06/09/24 05:00 78 20 160/85 H 97 06/09/24 04:30 87 16 139/80 95 06/09/24 04:09 83 18 94 06/09/24 04:05 136/75 06/09/24 04:05 136/75 06/09/24 04:05 136/75 06/09/24 03:51 88 20 95 06/09/24 03:30 93 H 20 154/85 H 93 06/09/24 03:25 87 16 154/85 H 94 06/09/24 03:08 98 H 06/09/24 03:04 93 06/09/24 02:47 36.9 C 104 H 16 155/89 H 95 O2 Del Method 06/09/24 07:10 06/09/24 06:00 06/09/24 05:00 Room Air 06/09/24 04:30 06/09/24 04:09 06/09/24 04:05 06/09/24 04:05 06/09/24 04:05 06/09/24 03:51 06/09/24 03:30 Room Air 06/09/24 03:25 Room Air 06/09/24 03:08 06/09/24 03:04 Room Air 06/09/24 02:47 Room Air Diagnostic Findings Laboratory Results WBC 11.30 K/ul (4.8-10.8) H 06/09/24 03:05 RBC 5.86 M/uL (4.20-5.40) H 06/09/24 03:05 Hgb 15.5 g/dl (12.0-16.0) 06/09/24 03:05 POC Hgb 17.0 g/dl (12.0-16.0) H 06/09/24 03:12 Hct 48.6 % (37.0-47.0) H 06/09/24 03:05 POC Hct 50 % (37-47) H 06/09/24 03:12 MCV 82.9 fL (80.0-100.0) 06/09/24 03:05 MCH 26.5 pg (25.0-34.0) 06/09/24 03:05 MCHC 31.9 g/dL (32.0-36.0) L 06/09/24 03:05 RDW Std Deviation 40.4 fL (36.4-46.3) 06/09/24 03:05 RDW Coeff of Kole 13.4 % (11.5-14.5) 06/09/24 03:05 Plt Count 310 K/uL (130-400) 06/09/24 03:05 MPV 9.5 fL (9.4-12.4) 06/09/24 03:05 Immature Gran % (Auto) 0.4 % 06/09/24 03:05 Neut % (Auto) 77.5 % 06/09/24 03:05 Lymph % (Auto) 14.8 % 06/09/24 03:05 [place] % (Auto) 5.8 % 06/09/24 03:05 Eos % (Auto) 1.4 % 06/09/24 03:05 Baso % (Auto) 0.1 % 06/09/24 03:05 Neut # (Auto) 8.77 K/uL (1.40-6.50) H 06/09/24 03:05 Lymph # (Auto) 1.67 K/uL (1.20-3.40) 06/09/24 03:05 [place] # (Auto) 0.65 K/uL (0.11-0.59) H 06/09/24 03:05 Eos # (Auto) 0.16 K/uL (0.00-0.50) 06/09/24 03:05 Baso # (Auto) 0.01 K/uL (0.00-0.20) 06/09/24 03:05 Immature Gran # (Auto) 0.04 K/uL (0.01-0.20) 06/09/24 03:05 POC Sodium 138 mmol/L (135-144) 06/09/24 03:12 Sodium 136 mmol/L (136-145) 06/09/24 03:05 POC Potassium 3.6 mmol/L (3.3-5.0) 06/09/24 03:12 Potassium 3.7 mmol/L (3.5-5.1) 06/09/24 03:05 POC Chloride 104 mmol/L (101-112) 06/09/24 03:12 Chloride 102 mmol/L (98-107) 06/09/24 03:05 Carbon Dioxide 23 mmol/L (21-32) 06/09/24 03:05 POC Total CO2 22 mmol/L (24-31) L 06/09/24 03:12 Anion Gap 11 (3-11) 06/09/24 03:05 POC Anion Gap 17.0 mmol/L (16-25) 06/09/24 03:12 POC BUN 18 mg/dl (7-18) 06/09/24 03:12 BUN 19 mg/dl (6-23) 06/09/24 03:05 Creatinine 1.04 mg/dl (0.6-1.2) 06/09/24 03:05 POC Creatinine 1.1 mg/dl (0.6-1.3) 06/09/24 03:12 Est Cr Clr Drug Dosing 82.4 ml/min 06/09/24 03:05 Est GFR ( Amer) 71.0 ml/min 06/09/24 03:05 Est GFR (Non-Af Amer) 61.3 ml/min 06/09/24 03:05 BUN/Creatinine Ratio 18.3 (10-20) 06/09/24 03:05 Glucose 119 mg/dl (70-99(Fasting)) H 06/09/24 03:05 POC Glucose (other) 121 mg/dl (70-99) H 06/09/24 03:12 Calcium 9.8 mg/dl (8.6-10.3) 06/09/24 03:05 POC Ioniz Calcium Edward 1.23 mmol/l (1.12-1.32) 06/09/24 03:12 Magnesium 1.8 mg/dl (1.7-2.4) 06/09/24 03:05 Total Bilirubin 0.6 mg/dl (0.2-1.0) 06/09/24 03:05 AST 22 U/L (13-39) 06/09/24 03:05 ALT 22 U/L (7-52) 06/09/24 03:05 Alkaline Phosphatase 81 U/L (34-104) 06/09/24 03:05 Troponin I High Sens 5.8 pg/ml (0-14) 06/09/24 03:05 Total Protein 8.2 gm/dl (6.0-8.3) 06/09/24 03:05 Albumin 4.7 gm/dl (3.4-5.0) 06/09/24 03:05 Globulin 3.5 gm/dl (2.5-4.0) 06/09/24 03:05 Albumin/Globulin Ratio 1.3 (0.9-2) 06/09/24 03:05 Lipase 36 U/L (11-82) 06/09/24 03:05 Urine Color Dark Yellow 06/09/24 03:05 Urine Appearance Turbid (Clear) A 06/09/24 03:05 Urine pH 5.5 (4.5-7.5) 06/09/24 03:05 Ur Specific [place] 1.031 (1.000-1.030) H 06/09/24 03:05 Urine Protein 3+ (Negative) H 06/09/24 03:05 Urine Glucose (UA) Negative (Negative) 06/09/24 03:05 Urine Ketones 1+ (Negative) H 06/09/24 03:05 Urine Blood Negative (Negative) 06/09/24 03:05 Urine Nitrite Negative (Negative) 06/09/24 03:05 Urine Bilirubin 2+ (Negative) H 06/09/24 03:05 Urine Urobilinogen Negative (Negative) 06/09/24 03:05 Ur Leukocyte Esterase Trace (Negative) H 06/09/24 03:05 Urine WBC (Auto) 21-50 /hpf (0-5) H 06/09/24 03:05 Urine RBC (Auto) 0-2 /hpf (0-2) 06/09/24 03:05 U Hyaline Cast (Auto) >20 /lpf (0-2) H 06/09/24 03:05 U Epithel Cells (Auto) >20 /hpf (0-2) H 06/09/24 03:05 Urine Bacteria (Auto) 2+ (None Seen) H 06/09/24 03:05 Calcium Oxalate Crystal Present (None Prsent) A 06/09/24 03:05 Urine Mucus Present (None Prsent) A 06/09/24 03:05 Impressions Abdomen/Pelvis CT 06/09/24 02:56 Exam(s): CT ABDOMEN + PELVIS With Contrast IV Amt: 93 ml optiray 320 EXAM: CT Abdomen and Pelvis With Intravenous Contrast CLINICAL HISTORY: lower abd pain. TECHNIQUE: Axial computed tomography images of the abdomen and pelvis with intravenous contrast. CTDI is 28.14 mGy and DLP is 1513.9 mGy-cm. Automated exposure control was utilized for the study. A dose lowering technique was utilized adhering to the principles of ALARA. CONTRAST: Patient received 93 ml optiray 320 of IV contrast 93 mL Optiray 320 COMPARISON: No relevant prior studies available. FINDINGS: Lung bases: Unremarkable. No mass. No consolidation. ABDOMEN: Liver: Unremarkable. No mass. Gallbladder and bile ducts: Unremarkable. No calcified stones. No ductal dilation. Pancreas: Unremarkable. No mass. No ductal dilation. Spleen: Unremarkable. No splenomegaly. Adrenals: Unremarkable. No mass. Kidneys and ureters: Unremarkable. No solid mass. No hydronephrosis. Stomach and bowel: No definite evidence for focal high-grade bowel obstruction. Mild mucosal prominence of the colon with slightly prominent fluid throughout the colon is noted. Moderate distention of the stomach with retained oral contents and fluid. No gastric ulcer thickening. PELVIS: Appendix: A normal caliber appendix is noted extending posteriorly and superiorly from the cecum in the right lower quadrant. Bladder: Unremarkable. No mass. Reproductive: Status post hysterectomy. ABDOMEN and PELVIS: Intraperitoneal space: Unremarkable. No free air. No significant fluid collection. Bones/joints: No acute fracture. No dislocation. Soft tissues: Unremarkable. Vasculature: Unremarkable. No abdominal aortic aneurysm. Lymph nodes: Unremarkable. No enlarged lymph nodes. IMPRESSION: No definite evidence for focal high-grade bowel obstruction. Mild mucosal prominence of the colon with slightly prominent fluid throughout the colon is noted. Subtle colitis with a component of diarrheal disease is suspected. No free intraperitoneal fluid or pneumoperitoneum. Electronically signed by: Keron Mayen MD 06/09/24 04:[address] 06/09/24 02:56 Exam(s): CT HEAD Without Contrast EXAM: CT Head Without Intravenous Contrast CLINICAL HISTORY: Reason for exam: syncope. TECHNIQUE: Axial computed tomography images of the head/brain without intravenous contrast. Automated exposure control was utilized for the study. A dose lowering technique was utilized adhering to the principles of ALARA. COMPARISON: No relevant prior studies available. FINDINGS: No acute intracranial hemorrhage. No midline shift or mass effect. The territorial mckinnon-white matter differentiation is maintained throughout. The ventricles and sulci are commensurate with age. The visualized orbits appear grossly unremarkable. The calvarium is intact. The visualized paranasal sinuses and mastoid air cells are grossly clear. IMPRESSION: No acute intracranial hemorrhage, midline shift, or mass effect. Electronically signed by: Rui Caicedo MD 06/09/24 04:14 AM ECG Additional Comments: ECG sinus tachycardia 108. ST and T wave abnormality. ST depression in lateral leads Code Status & VTE Plan VTE Prophylaxis Plan VTE Prophylaxis will be ordered: Yes (1) Syncope Syncope type: vasovagal syncope Qualified Code(s): R55 - Syncope and collapse
[2024-06-09] MEDS ORDERED: LORazepam 0.5 MG TAB PO PRN (09:47)
[2024-06-09] MEDS ORDERED: NITROGLYCERIN SL 0.4 MG/TAB TAB SL PRN (09:47)
[2024-06-09] MEDS ORDERED: ALBUTEROL HFA 8 GM INHALER INH PRN (09:47)
[2024-06-09] MEDS ORDERED: FUROSEMIDE 20 MG TAB PO SCH (10:30)
--- NOTE | 2024-06-09 10:51 | Electrocardiogram Report ---
Test Reason : Blood Pressure : */* mmHG Vent. Rate : 108 BPM Atrial Rate : 108 BPM P-R Int : 144 ms QRS Dur : 80 ms QT Int : 314 ms P-R-T Axes : 60 52 -43 degrees QTcB Int : 420 ms Sinus tachycardia Abnormal ECG When compared with ECG of 03-Apr-2017 12:10, Non-specific change in ST segment in Inferior leads ST now depressed in Anterolateral leads T wave inversion now evident in Inferior leads Confirmed by Carlo Nj ([id number]) on 06/09/2024 10:51:12 AM Referred By: Confirmed By: Carlo Nj
[2024-06-09 10:52] LABS: Estimated Average Glucose 114 mg/dl; Hemoglobin A1C 5.6 % (4.5-5.6)
[2024-06-09 10:56] LABS: Troponin I High Sensitivity 2.8 pg/ml (0-14)
[2024-06-09 11:06] LABS: Thyroid Stimulating Hormone 0.106 uIu/ml (0.300-4.500)
--- NOTE | 2024-06-09 11:16 | Hospitalist Progress Note ---
Date of Service June 09, 2024 Assessment & Plan (1) Vasovagal syncope: (2) Medication adverse effect: (3) Suspected UTI: (4) Head injury: (5) Hypothyroidism: Plan: Suppressed TSH Plan Reviewed H&P. Suspect patient had vasovagal syncope complicated from some volume depletion and dehydration associated with adverse drug effect of the Ozempic. Low suspicion for acute coronary syndrome, echocardiogram and cardiology consult pending TSH is suppressed, decrease Synthroid dosing Continue to monitor telemetry, continue IV hydration, orthostatic vital signs Activity as tolerated Urinalysis suspicious for UTI, continue Rocephin, follow urine culture at bedside Anticipate discharge as soon as tomorrow Admission and Anticipated Discharge Date Admission Date: June 09, 2024 Subjective Patient feeling significantly improved, no lightheadedness or dizziness. No chest pain or palpitations Physical Exam Physical Exam: Constitutional: Alert HEENT: Mucous membranes moist. Contusion left forehead Lungs: Clear to auscultation, decreased, no wheezes rales or rhonchi CV: S1-S2, regular, no murmur Abdomen: Soft, nontender, nondistended Extremities: No significant edema Neuro: No focal deficits Psych: Cooperative, normal mood Results & Data Results & Data Vital Signs (Past 12 Hours) Vital Signs Temp Pulse Pulse Resp BP BP Pulse Ox 06/09/24 09:53 06/09/24 09:53 36.4 C L 92 H 20 130/82 96 06/09/24 09:47 06/09/24 09:00 164/75 H 06/09/24 08:57 75 13 95 06/09/24 08:30 163/83 H 06/09/24 08:09 80 18 97 06/09/24 08:01 141/62 H 06/09/24 08:01 141/62 H 06/09/24 08:00 88 16 97 06/09/24 07:36 76 13 97 06/09/24 07:30 147/90 H 06/09/24 07:21 88 98 06/09/24 07:15 74 98 06/09/24 07:10 75 06/09/24 07:00 147/89 H 06/09/24 06:00 75 20 163/93 H 97 06/09/24 05:00 78 20 160/85 H 97 06/09/24 04:30 87 16 139/80 95 06/09/24 04:09 83 18 94 06/09/24 04:05 136/75 06/09/24 04:05 136/75 06/09/24 04:05 136/75 06/09/24 03:51 88 20 95 06/09/24 03:30 93 H 20 154/85 H 93 06/09/24 03:25 87 16 154/85 H 94 06/09/24 03:08 98 H 06/09/24 03:04 93 06/09/24 02:47 36.9 C 104 H 16 155/89 H 95 Pulse Ox O2 Del Method O2 Del Method 06/09/24 09:53 Room Air 06/09/24 09:53 Room Air 06/09/24 09:47 96 Room Air 06/09/24 09:00 06/09/24 08:57 06/09/24 08:30 06/09/24 08:09 06/09/24 08:01 06/09/24 08:01 06/09/24 08:00 06/09/24 07:36 06/09/24 07:30 06/09/24 07:21 06/09/24 07:15 06/09/24 07:10 06/09/24 07:00 06/09/24 06:00 06/09/24 05:00 Room Air 06/09/24 04:30 06/09/24 04:09 06/09/24 04:05 06/09/24 04:05 06/09/24 04:05 06/09/24 03:51 06/09/24 03:30 Room Air 06/09/24 03:25 Room Air 06/09/24 03:08 06/09/24 03:04 Room Air 06/09/24 02:47 Room Air Diagnostic Findings Reviewed imaging, laboratory and diagnostic studies. Pertinent findings as below. Personally reviewed EKG, some nonspecific ST-T wave changes TSH suppressed 0.1 Hemoglobin A1c 5.6%
[2024-06-09] MEDS: FLUTICASONE/VILANTEROL 100/25MCG 14 PUFFS/INHALER INH SCH (11:37)
[2024-06-09] MEDS: MONTELUKAST SODIUM 10 MG TABLET PO SCH (11:38)
[2024-06-09] MEDS: PANTOprazole 40 MG TAB PO SCH (11:38)
[2024-06-09] MEDS: VENLAFAXINE HCL XR 75 MG CAPXR PO SCH (11:39)
[2024-06-09] MEDS: lisinopril 10 MG TAB PO SCH (11:39)
[2024-06-09] MEDS: LEVOTHYROXINE SODIUM 125 MCG TABLET PO SCH (11:39)
[2024-06-09 11:41] LABS: T4 Free Thyroxine 1.35 ng/dl (0.61-1.60)
--- NOTE | 2024-06-09 14:39 | Cardiology Consultation ---
Date of Consultation June 09, 2024 Assessment & Plan (1) Vasovagal syncope: (2) Acute UTI: (3) Abnormal ECG: Plan Assessment: 53 year old female presents with syncopal episode while on the commode having GI distress. Request for cardiology evaluation due to syncope as well as non-specific EKG changes. Plan: Vasovagal syncope: -event likely vasovagal in nature due to the fact that patient was using the restroom with active GI distress at the time of event. Probable side effect from Ozempic. -Review of telemetry demonstrates a NSR with no acute events or arrhythmias Acute UTI: -As per lab studies, continued management per primary team Abnormal EKG: -patient was tachycardic with non-specific ST changes in her inferior leads. Study compared with prior EKG done outpatient which was normal. -High sensitivity troponin negative x2 and patient remains asymptomatic -Will plan for echocardiogram to assess overall structure and function as well as for any wall motion abnormalities. -BP controlled at this time. -Continue her current home regimen which includes Lisinopril, and Furosemide -Will continue to follow. Case has been discussed with Dr. Khan. Further recommendations regarding plan of care as per his assessment. I spent a total of 30 minutes on the date of service in preparation, delivery, documentation of the care provided to the patient excluding any time spent in the performance of separately billed services. LATONYA Pringle [facility] Cardiology [facility] Supervising Physician Co-Signing Physician Notes Chart and records, patient reviewed. Full assessment and plan as outlined by advanced provider as above care and management personally endorse Echocardiogram still pending Clinical history consistent with acute vasovagal event precipitated by GI issues, volume contraction. Hemoglobin 17 Will review echo as available Repeat EKG though initial study not concerning other than sinus tachycardia Hold furosemide in hospital Cardiology will follow History of Present Illness Reason for Consultation: Syncope Requesting Physician: [facility] hospitalist Attending Physician: Garrick Villalpando DO History of Present Illness HPI: Patient is a 53 year-old female with PMHx significant for Hypothyroidism, HTN, dyslipidemia, pre-diabetes, IBS, GERD, esophageal stricture and obesity that presents after an episode of syncope. patient has recently started Ozempic and is currently on week 5, which is a new increased dose of 0.5mg SC weekly. He states that she has been dealing with increased GI distress including N/and diarrhea. She reports that she was sitting on the commode having distress when she felt unwell and synopsized hitting her forehead. She woke immediately and denied any confusion, disorientation, no shaking or any witnessed seizure activity. She presented to the ED for treatment of her forehead laceration and further evaluation of the event. Upon examination today, patient is resting comfortably in bed with family at bedside. She denies any chest pain, pressure, palpitations, shortness of breath, PND, pre-syncopal symptoms or edema. She does report that she has been following with her PCP for complaints of "heart racing with exertion". She wore a ZIO monitor for this which showed a predominant sinus rhythm with rare ventricular ectopy. No profound bradycardia. Highest HR with exertion was 167bpm. No evidence of SVT WBC count elevated, Positive UTI TSH Low, but T4 is normal Troponin negative x2 EKG ST with some non-specific ST changes in the inferior leads, specifically in leads III and AVF. Rate 108bpm. Echocardiogram ordered. Allergies Allergy/AdvReac Type Severity Reaction Status Date / Time sumatriptan Allergy Unknown HIVES Verified 04/10/17 10:44 nickel AdvReac Intermediate RASH Verified 04/10/17 10:44 tramadol AdvReac Mild "GETS MEAN" Verified 04/10/17 10:44 Aromatic Oils Allergy Unknown LOTIONS Uncoded 04/10/17 10:44 WITH FRAGRANCE-RASH Home Medications Medication Instructions Recorded Confirmed Type albuterol sulfate 90 mcg/actuation 2 puff inhalation Q4H PRN sob 06/09/24 06/09/24 History aerosol inhaler fluticasone 100 mcg-salmeterol 50 1 inh inhalation BID 06/09/24 06/09/24 History mcg/dose blistr powdr for inhalation (Advair Diskus) furosemide 20 mg tablet 20 mg PO DAILY 06/09/24 06/09/24 History levothyroxine 125 mcg tablet 125 mcg PO DAILY 06/09/24 06/09/24 History lisinopril 10 mg tablet 10 mg PO DAILY 06/09/24 06/09/24 History lorazepam 0.5 mg tablet 0.5 mg PO TID PRN Anxiety 06/09/24 06/09/24 History montelukast 10 mg tablet 10 mg PO DAILY 06/09/24 06/09/24 History omeprazole 20 mg capsule,delayed 20 mg PO DAILY 06/09/24 06/09/24 History release semaglutide 0.25 mg or 0.5 mg (2 0.5 mg subcut WK 06/09/24 06/09/24 History mg/3 mL) subcutaneous pen injector (Ozempic) venlafaxine 75 mg capsule,extended 75 mg PO DAILY 06/09/24 06/09/24 History release 24 hr Patient History Social History Smoking Status: Never smoker Hx Alcohol Use: No Hx Substance Use: No Preferred Language: German Communication Ability: Effective Moveman Required: No Beliefs That Will Affect Care: None Current Living Situation: Spouse Other Information That Helps Us Care for You: Yes Feels Safe at Home: Yes Safety Concerns: Feels Safe At This Time Assistive Devices: Glasses Review of Systems Review of Systems: All systems reviewed & are unremarkable except as noted in HPI & below Physical Exam Constitutional: well developed, well nourished and + overweight Neck: normal visual inspection and trachea midline Respiratory: normal respiratory effort, lungs clear to auscultation Auscultation: no crackles, no rales, no rhonchi and no wheezes Cardiovascular: Rate/Rhythm: regular rate and regular rhythm Heart Sounds: normal S1 and normal S2; no murmur Vessels: dorsalis pedis pulses present; no JVD Extremities: no edema Skin: normal turgor; turgor not decreased and no rashes Trauma: + laceration (forehead) Psychiatric: A+Ox3, euthymic affect Results & Data Vital Signs (Past 12 Hours) Vital Signs Temp Pulse Pulse Resp BP BP Pulse Ox 06/09/24 13:47 80 06/09/24 11:45 96 H 06/09/24 09:53 06/09/24 09:53 36.4 C L 92 H 20 130/82 96 06/09/24 09:47 06/09/24 09:00 164/75 H 06/09/24 08:57 75 13 95 06/09/24 08:30 163/83 H 06/09/24 08:09 80 18 97 06/09/24 08:01 141/62 H 06/09/24 08:01 141/62 H 06/09/24 08:00 88 16 97 06/09/24 07:36 76 13 97 06/09/24 07:30 147/90 H 06/09/24 07:21 88 98 06/09/24 07:15 74 98 06/09/24 07:10 75 06/09/24 07:00 147/89 H 06/09/24 06:00 75 20 163/93 H 97 06/09/24 05:00 78 20 160/85 H 97 06/09/24 04:30 87 16 139/80 95 06/09/24 04:09 83 18 94 06/09/24 04:05 136/75 06/09/24 04:05 136/75 06/09/24 04:05 136/75 06/09/24 03:51 88 20 95 06/09/24 03:30 93 H 20 154/85 H 93 06/09/24 03:25 87 16 154/85 H 94 06/09/24 03:08 98 H 06/09/24 03:04 93 06/09/24 02:47 36.9 C 104 H 16 155/89 H 95 Pulse Ox O2 Del Method O2 Del Method 06/09/24 13:47 06/09/24 11:45 06/09/24 09:53 Room Air 06/09/24 09:53 Room Air 06/09/24 09:47 96 Room Air 06/09/24 09:00 06/09/24 08:57 06/09/24 08:30 06/09/24 08:09 06/09/24 08:01 06/09/24 08:01 06/09/24 08:00 06/09/24 07:36 06/09/24 07:30 06/09/24 07:21 06/09/24 07:15 06/09/24 07:10 06/09/24 07:00 06/09/24 06:00 06/09/24 05:00 Room Air 06/09/24 04:30 06/09/24 04:09 06/09/24 04:05 06/09/24 04:05 06/09/24 04:05 06/09/24 03:51 06/09/24 03:30 Room Air 06/09/24 03:25 Room Air 06/09/24 03:08 06/09/24 03:04 Room Air 06/09/24 02:47 Room Air Laboratory Results Cardiac Enzymes 06/09/24 06/09/24 Range/Units 03:05 10:10 AST 22 (13-39) U/L Troponin I High Sens 5.8 2.8 (0-14) pg/ml CBC 06/09/24 Range/Units 03:05 WBC 11.30 H (4.8-10.8) K/ul RBC 5.86 H (4.20-5.40) M/uL Hgb 15.5 (12.0-16.0) g/dl Hct 48.6 H (37.0-47.0) % Plt Count 310 (130-400) K/uL Neut # (Auto) 8.77 H (1.40-6.50) K/uL Lymph # (Auto) 1.67 (1.20-3.40) K/uL Curry # (Auto) 0.65 H (0.11-0.59) K/uL Eos # (Auto) 0.16 (0.00-0.50) K/uL Baso # (Auto) 0.01 (0.00-0.20) K/uL Comprehensive Metabolic Panel 06/09/24 Range/Units 03:05 Sodium 136 (136-145) mmol/L Potassium 3.7 (3.5-5.1) mmol/L Chloride 102 (98-107) mmol/L Carbon Dioxide 23 (21-32) mmol/L BUN 19 (6-23) mg/dl Creatinine 1.04 (0.6-1.2) mg/dl Glucose 119 H (70-99(Fasting)) mg/dl Calcium 9.8 (8.6-10.3) mg/dl AST 22 (13-39) U/L ALT 22 (7-52) U/L Alkaline Phosphatase 81 (34-104) U/L Total Protein 8.2 (6.0-8.3) gm/dl Albumin 4.7 (3.4-5.0) gm/dl Intake and Output 06/08/24 06/09/24 06/09/24 22:59 06:59 14:59 Intake Total 1150 / 1150 Balance 1150 / 1150 Intake: IV 1150 / 1150 Acetaminophen 1,000 mg In 100 100 / 100 ml @ 400 mls/hr IV NOW STA Rx#: [id number] Sodium Chloride 0.9% 1,000 ml @ 1000 / 1000 999 mls/hr IV .Q1H1M [facility] Rx#: [id number] cefTRIAXone SODIUM 2,000 mg In 50 / 50 50 ml @ 100 mls/hr IV NOW STA Rx#:[id number] Other: Weight 123.1 kg 123.1 kg Weight Measurement Method Chair Scale Built in [facility] Patient Weight 06/10/24 06:59 Weight 123.1 kg
[2024-06-09] MEDS: ACETAMINOPHEN 325 MG TAB PO PRN (19:53)
[2024-06-09] MEDS: CALCIUM CARBONATE 500 MG CHEWABLE TAB PO PRN (20:18)
[2024-06-10] MEDS: ONDANSETRON INJ 2 MG/ML 2 ML VIAL IV PRN (00:53)
[2024-06-10] MEDS: LEVOTHYROXINE SODIUM 100 MCG TABLET PO SCH (05:35)
[2024-06-10] MEDS: cefTRIAXone SODIUM 2,000 MG/50 ML BAG IV SCH (06:04)
[2024-06-10 06:50] LABS: Hematocrit (blood only) 39.6 % (37.0-47.0); Hemoglobin 12.7 g/dl (12.0-16.0); Mean Corpuscular Hemoglobin 27.2 pg (25.0-34.0); Mean Corpuscular Hgb Conc 32.1 g/dL (32.0-36.0); Mean Corpuscular Volume 84.8 fL (80.0-100.0); Platelet Count 242 K/uL (130-400); RDW Coefficient of Variation 13.5 % (11.5-14.5); RDW Standard Deviation 41.8 fL (36.4-46.3); Red Blood Count 4.67 M/uL (4.20-5.40); White Blood Count 6.06 K/ul (4.8-10.8)
[2024-06-10 07:18] LABS: BUN Creatinine Ratio 14.9 (10-20); Calcium 8.4 mg/dl (8.6-10.3); Creatinine Clr Calc Pharmacy 116.7 ml/min; Est GFR (African American) 107.2 ml/min; Est GFR (Non-African American) 92.5 ml/min; Magnesium 1.8 mg/dl (1.7-2.4); Potassium 4.4 mmol/L (3.5-5.1)
[2024-06-10 07:50] VITALS: RESP 18
[2024-06-10] MEDS ORDERED: Nursing to Pharmacy Communication SCH (08:15)
--- NOTE | 2024-06-10 09:22 | Electrocardiogram Report ---
Test Reason : Blood Pressure : */* mmHG Vent. Rate : 89 BPM Atrial Rate : 89 BPM P-R Int : 170 ms QRS Dur : 86 ms QT Int : 368 ms P-R-T Axes : 40 50 11 degrees QTcB Int : 447 ms Normal sinus rhythm Normal ECG When compared with ECG of 09-Jun-2024 03:00, Non-specific change in ST segment in Inferior leads T wave inversion less evident in Inferior leads Confirmed by Carlo Nj ([id number]) on 06/10/2024 9:21:54 AM Referred By: REFERRED SELF Confirmed By: Carlo Nj
[2024-06-10 10:13] VITALS: O2SAT 95
[2024-06-10 10:35] LABS: Appearance Urine Clear (Clear); Bacteria Urine Automated None Seen (None Seen); Bilirubin Urine Negative (Negative); Blood Urine Negative (Negative); Cast Urine Automated 0-2 /lpf (0-2); Color Urine Yellow; Glucose Urine UA Negative (Negative); Ketones Urine 1+ (Negative); Leukocyte Esterase Urine Negative (Negative); Mucus Urine Present (None Prsent); Nitrite Urine Negative (Negative); Protein Urine Trace (Negative); RBC Urine Automated 0-2 /hpf (0-2); Urobilinogen Urine Negative (Negative); WBC Urine Automated 0-5 /hpf (0-5); pH Urine 5.5 (4.5-7.5)
[2024-06-10 11:30] VITALS: BP 125/80; PULSE 86; TEMP 97.9
--- NOTE | 2024-06-10 12:30 | Cardiology Progress Note ---
Date of Service June 10, 2024 Assessment & Plan (1) Vasovagal syncope: (2) Acute UTI: (3) Abnormal ECG: (4) Hyperlipidemia: Plan Assessment: 53 year old female presents with syncopal episode while on the commode having GI distress. Request for cardiology evaluation due to syncope as well as non-specific EKG changes. Plan: Vasovagal syncope: -event likely vasovagal in nature due to the fact that patient was using the restroom with active GI distress at the time of event. Probable side effect from Ozempic. -Review of telemetry demonstrates a NSR with no acute events or arrhythmias Acute UTI: -As per lab studies, continued management per primary team Abnormal EKG: -patient was tachycardic with non-specific ST changes in her inferior leads. Study compared with prior EKG done outpatient which was normal. -High sensitivity troponin negative x2 and patient remains asymptomatic -Will plan for echocardiogram to assess overall structure and function as well as for any wall motion abnormalities. -BP controlled at this time. -Continue her current home regimen which includes Lisinopril, and Furosemide -Will continue to follow. Case has been discussed with Dr. Khan. Further recommendations regarding plan of care as per his assessment. I spent a total of 30 minutes on the date of service in preparation, delivery, documentation of the care provided to the patient excluding any time spent in the performance of separately billed services. LATONYA Pringle [facility] 06/10/2024 No further evolution of complaints. No further dizziness lightheadedness syncope or near syncope No arrhythmias on telemetry Issues addressed as below 1. Acute vasovagal syncope: Patient with prior event in the remote past 10 years prior discussed. Current event incited by GI concerns, dehydration occ urring while on toilet. No evidence of acute injury by enzymes EKG with normal LV systolic function. Discussed tendency to recur with patient with patient to seek supine position for any recurrence of preevent aura which has happened in the past Maintaining hydration important 2. Hyperlipidemia: Discussed in detail with patient. Significant LDL elevation on outpatient test, LDL 176 and similar to prior. Would recommend initiating treatment with rosuvastatin 20 mg p.o. daily 3. Familial history of premature coronary disease: As above initiate lipid- lowering therapy. Recommend stress echocardiogram post hospital discharge 4. Familial history of ascending aortic aneurysm: Aortic root and ascending aortic size normal on echocardiogram, hyperdynamic LV function. Consider repeat imaging 5 years Will sign off contact with any further question Admission and Anticipated Discharge Date Admission Date: June 09, 2024 Subjective Patient seen and examined, chart, medications, telemetry reviewed. No arrhythmias overnight No symptoms other than mild discomfort at site of forehead contusion. GI issues are improving. No nausea or vomiting. No diarrhea. EKG today normal Review of Systems Review of Systems: All systems reviewed & are unremarkable except as noted in HPI & below Physical Exam Constitutional: well developed, well nourished and + obese Eyes: Mild right periorbital ecchymosis ENMT: Forehead contusion healing Neck: normal visual inspection and trachea midline Respiratory: normal respiratory effort, lungs clear to auscultation Auscultation: no crackles, no rales, no rhonchi and no wheezes Cardiovascular: Rate/Rhythm: regular rate and regular rhythm Heart Sounds: normal S1 and normal S2; no murmur Vessels: dorsalis pedis pulses present; no JVD Extremities: no edema Skin: normal turgor; turgor not decreased and no rashes Trauma: + laceration (forehead) Psychiatric: A+Ox3, euthymic affect Results & Data Vital Signs (Past 12 Hours) Vital Signs Temp Pulse Pulse Resp BP Pulse Ox Pulse Ox 06/10/24 12:13 36.6 C 86 18 125/80 95 06/10/24 11:29 36.6 C 86 18 125/80 95 06/10/24 09:47 95 06/10/24 07:49 36.7 C 81 18 151/81 H 96 06/10/24 07:18 83 06/10/24 03:14 36.9 C 82 16 145/86 H 95 O2 Del Method O2 Del Method 06/10/24 12:13 06/10/24 11:29 Room Air 06/10/24 09:47 Room Air 06/10/24 07:49 Room Air 06/10/24 07:18 06/10/24 03:14 Room Air Laboratory Results Laboratory Results - last 24 hr 06/10/24 06/10/24 05:40 10:10 WBC 6.06 RBC 4.67 Hgb 12.7 Hct 39.6 MCV 84.8 MCH 27.2 MCHC 32.1 RDW Std Deviation 41.8 RDW Coeff of Kole 13.5 Plt Count 242 MPV 10.0 Sodium 139 Potassium 4.4 Chloride 108 H Carbon Dioxide 26 Anion Gap 5 BUN 11 Creatinine 0.74 D Est Cr Clr Drug Dosing 116.7 Est GFR ( Amer) 107.2 Est GFR (Non-Af Amer) 92.5 BUN/Creatinine Ratio 14.9 Glucose 88 Calcium 8.4 L Magnesium 1.8 Urine Color Yellow Urine Appearance Clear Urine pH 5.5 Ur Specific [place] 1.030 Urine Protein Trace H Urine Glucose (UA) Negative Urine Ketones 1+ H Urine Blood Negative Urine Nitrite Negative Urine Bilirubin Negative Urine Urobilinogen Negative Ur Leukocyte Esterase Negative Urine WBC (Auto) 0-5 Urine RBC (Auto) 0-2 U Hyaline Cast (Auto) 0-2 U Epithel Cells (Auto) 3-5 H Urine Bacteria (Auto) None Seen Urine Mucus Present A
--- NOTE | 2024-06-10 13:28 | Discharge Summary ---
Date of Service June 10, 2024 Admission HPI Per Admitting Provider 53-year-old female with past medical significant for hypothyroidism, dyslipidemia, prediabetes, allergic rhinitis, hypertension, irritable bowel syndrome, history of esophageal stricture, GERD, obesity, comes with episode of syncope. Patient states she recently started Ozempic finished first week 4 weeks of 0.25 mg dose and about 4 days ago dose was increased to 0.5 mg and since then she is having a lot of nausea and diarrhea. Last night when she was on the commode she passed out and hit her forehead. After waking up she is back to her normal self. No shaking of the body. No biting of tongue. No incontine nce. Has mild headache currently. No blurred vision. No runny nose or sore throat or cough. No chest pain or shortness of breath. Has some abdominal discomfort. Micturating okay. Currently resting comfortably and hemodynamic stable. Past medical history. As mentioned above Past surgical history. . EGD. EGD with trans endoscopic dilatation. Robotic laparoscopic hysterectomy with removal of tubes. Ligation of oviducts. Family history. Maternal cousin had breast cancer. Mother has diabetes. Father had heart attack. Paternal aunt had ovarian cancer. Maternal grandmot her had stroke. Brother has dysphagia..Sister has dysphagia. Son has asthma. Admission Exam Per Admitting Provider General- Not in distress Head- Bruise seen on forehead Eyes- PERRL. ENT- oropharynx clear Neck- supple, no JVD. Lungs- clear to auscultation no wheezing or crackles Heart- regular rate and rhythm; no murmur, no gallop. Abdomen- normal bowel sounds, soft, nontender, no distension Extremities- no pretibial edema, no erythema seen Neuro- alert, oriented PERRL, no facial palsy; no dysarthria; moves extremities Principal Diagnosis Syncope, likely vasovagal Discharge Exam Constitutional: WD/WN, vitals as above, NAD, sitting up in bed, pleasant, conversing easily Head- bruise on forehead, no active bleeding Respiratory: normal respiratory effort, lungs clear to auscultation, no wheeze, rales, rhonchi. Normal insp/exp effort, no accessory muscle use Cardiovascular: RRR, no murmur, no edema Vessels: no JVD or carotid bruit Chest: normal inspection of chest Abdomen: normal bowel sounds, soft, nontender, no hepatosplenomegaly Musculoskeletal: no cyanosis or clubbing, extremities motor strength 5/5 Skin: no rashes, warm and dry normal turgor Neurologic: PERRL, EOMI, accommodation nl, no face palsy, no dysarthria CN's II- XI intact bilaterally and moves all extremities Psychiatric: A+Ox3, euthymic affect Discharge Data Allergies Allergy/AdvReac Type Severity Reaction Status Date / Time sumatriptan Allergy Unknown HIVES Verified 04/10/17 10:44 nickel AdvReac Intermediate RASH Verified 04/10/17 10:44 tramadol AdvReac Mild "GETS MEAN" Verified 04/10/17 10:44 Aromatic Oils Allergy Unknown LOTIONS Uncoded 04/10/17 10:44 WITH FRAGRANCE-RASH Consultations 06/09/24 05:01 ED Decision to Admit Stat 06/09/24 09:47 Consult Cardiology Routine Ordered Studies 06/09/24 02:56 CT Abd and Pelvis [CT abd pelvis IV con only] Stat CT head/brain wo con Stat Hospital Course (1) Vasovagal syncope: (2) Medication adverse effect: (3) Suspected UTI: (4) Head injury: (5) Hypothyroidism: Suppressed TSH Plan Patient is a 53 year old female with with past medical significant for hypothyroidism, dyslipidemia, prediabetes, allergic rhinitis, hypertension, irritable bowel syndrome, history of esophageal stricture, GERD, obesity, comes with episode of syncope. Patient reported multiple episodes of diarrhea and nausea for couple of days. Patient was admitted to medical floors. She underwent echocardiogram which showed normal EF and no significant valvular abnormalities. Telemetry didn't show any significant arrhythmias. Cardiology was consulted for comanagement; the syncopal episodes was thought secondary to vasovagal. She was started on Rosuvastatin for elevated LDL. Patient reported resolution of diarrhea at the time of discharge. Please note the above document was generated using voice recognition software. It may contain grammatical, syntax or spelling errors. Any formal questions or concerns about the content, text or information contained within the body of this dictation should be directly addressed to the provider for clarification Total Time Total Time Spent Total Time Spent (In Minutes): 35 Total Time Includes: Examination of the Patient, Discharge Planning, Medication Reconciliation, Communication With Other Providers and Other Discharge Plan Discharge Items Patient Disposition: Home - Self-Care Reason For Visit: syncope Discharge Diagnosis: Syncope likely due to dehydration Condition on Discharge: Good Activity: Resume your previous activity Non-emergency contact: Primary Care Provider Call non-emergency contact if: you have any medication questions and your symptoms worsen Follow-up/Referrals: Jennifer Khoury DO [Primary Care Provider] - (Date & Time 06/17/2024 9:10 AM Provider Jennifer Khoury DO [facility] ) Diet: Regular Addtl Attending Provider Instructions: You were admitted to the hospital after passing out. The likely cause for the episode is dehydration. You were also evaluated by senior commissions analyst during the hospitalization. Echocardiogram showed normal heart function. Lasix is currently on hold to prevent further dehydration until you see your primary care doctor. Please measure blood pressure daily at home for next 1 week. Measure the BP on a sitting position with both feet on the ground and arm rested. You might need adjustment of your blood pressure medication depending on the results. Your TSH was found to be 0.106; you will likely need adjustment of your levothyroxine dose; discussed with your primary care doctor. Ozempic is currently placed on hold. Please discuss with your primary care doctor regarding resuming it in the future. Appointment with your primary care doctor has been set up for next week. Pending Studies at Discharge: No Stand-Alone Forms: My [facility] My[employer], Smoking Cessation Medications and DC Order Prescriptions: New rosuvastatin 20 mg tablet 20 mg PO DAILY Qty: 30 0RF Continued venlafaxine 75 mg capsule,extended release 24hr 75 mg PO DAILY lorazepam 0.5 mg tablet 0.5 mg PO TID PRN (Reason: Anxiety) lisinopril 10 mg tablet 10 mg PO DAILY omeprazole 20 mg capsule,delayed release(DR/EC) 20 mg PO DAILY montelukast 10 mg tablet 10 mg PO DAILY fluticasone propion-salmeterol [Advair Diskus] 100-50 mcg/dose blister with device 1 inh INHALATION BID albuterol sulfate 90 mcg/actuation HFA aerosol inhaler 2 puff INHALATION Q4H PRN (Reason: sob) levothyroxine 125 mcg Tablet 125 mcg PO DAILY Held furosemide 20 mg tablet 20 mg PO DAILY Hold Instructions: Resume on 06/17/24. Ozempic 0.25 mg or 0.5 mg (2 mg/3 mL) pen injector 0.5 mg SUBCUT WK Hold Instructions: Resume on 06/17/24. Discharge Orders: Discharge Order (Routine); Ordered 06/10/24 Ordered By: Srinivas Avila/Other Patient Handouts: What Is Syncope, Causes of Syncope Admission Data Admit Date/Time: 06/09/24 06:38 Attending Provider: Srinivas Irene Admit Provider: Mike Bowens Primary Care Provider: Jennifer Khoury Other Providers: Mike Bowens; Glenn Khan Other Interventions: Discharge Summary Assessment (RN) Last Done: 06/10/24 12:13
[2024-06-10] MEDS ORDERED: MONTELUKAST SODIUM 10 MG TABLET PO SCH (21:00)
== END 2024-06-10 13:36 | disposition home or self-care (01) | DRG 641 ==
LOC: SUATTDRO → ED 02:44 → 2E 06:38 → SUATTDRO 06:38 → 2E 09:20